=== PATIENT | male | born 1930 | race Caucasian/White ===

== ENCOUNTER 2018-08-08 01:32 | Inpatient (IN) | payer MEDICARE, BC ==
[2018-08-08 02:48] LABS: Troponin I Less than 0.010 ng/mL (< 0.028)
[2018-08-08] MEDS ORDERED: Dextrose 5% in Water 1,000 ML IV PRN (03:18)
[2018-08-08] MEDS ORDERED: Rib Fracture Protocol PO SCH (03:30)
[2018-08-08] MEDS ORDERED: Cyclobenzaprine 10 MG TAB PO PRN (03:45)
[2018-08-08 03:50] LABS: #Eosinphils 0.2 thou/uL (0.0-0.7); #Lymphocytes 1.4 thou/uL (1.20-3.40); #Monocytes 0.6 thou/uL (0.11-0.59); #Neutrophils 6.2 thou/uL (1.40-6.50); %Basophils 0.1 % (0.0-1.0); %Eosinophils 1.8 % (0.0-10.0); %Lymphocytes 17.2 % (21.0-51.0); %Monocytes 7.4 % (0.0-10.0); %Neutrophils 73.5 % (42.0-75.0); Hemoglobin 11.5 g/dL (14.0-18.0); Mean Corpuscular HGB CONC 32.7 g/dL (32.0-36.0); Mean Corpuscular Hemoglobin 30.7 pg (27.0-31.0); Mean Corpuscular Volume 93.8 fL (78.0-98.0); Platelet Count 233 thou/uL (130-400); RBC Distribution Width 12.4 % (11.5-14.5); Red Blood Cell (RBC) Count 3.75 mill/uL (4.70-6.10); White Blood Cell (WBC) Count 8.4 thou/uL (4.8-10.8)
[2018-08-08 04:17] LABS: Anion Gap 13 mmol/L (10-20); BUN (Urea Nitrogen) 11 mg/dL (8.4-25.7); Calc. Creatinine Clearance 0 mL/min (70-130); Carbon Dioxide 30 mmol/L (23-31); Chloride 99 mmol/L (98-107); Estimated GFR-MDRD Greater than 90; Glucose 184 mg/dL (83-110); Potassium 3.7 mmol/L (3.5-5.1); Sodium 138 mmol/L (136-145)
--- NOTE | 2018-08-08 04:50 | HP ---
TRAUMA SURGEON: Dr. Larkin. TRAUMA ACTIVATION: Not applicable. HISTORY OF PRESENT ILLNESS: This is an 87-year-old gentleman who presented as a transfer from [facility] in [place] status post fall, possible syncopal event. The patient is a poor historian. Therefore, history is taken partially from him and partially from records review. Per previous ER documentation, the patient was at a green party. He states that he became dizzy and then fell. There was report of a 2nd fall involving what sounds like a syncopal event. The patient was seen and evaluated in the [place] [facility] and found to have multiple right-sided rib fractures with hypoxemia. He was, therefore, transferred to our facility for further treatment and care. Upon my evaluation, the patient has a chief complaint of right-sided chest discomfort. Pain improved with pain medications and rest, worsened with movement. ALLERGIES: THE PATIENT DENIES. HOME MEDICATIONS: The patient is unable to verify home medication list, medication list provided by outside facility includes; 1. Aspirin 325 p.o. daily. 2. Atorvastatin 10 mg daily. 3. Cymbalta 60 mg. 4. Iron 325 mg. 5. Florinef 0.1 mg. 6. Metformin 500 mg daily. 7. Toprol-XL 25 mg daily. 8. Midodrine dose unknown. 9. Prilosec 20 mg daily. 10. Zoloft 25 mg daily. 11. Flomax 0.4 mg daily. PAST MEDICAL HISTORY: Includes multiple syncopal events and falls of unclear etiology, BPH, diabetes, hypertension, chronic pain, status post spinal cord stimulator, depression, diabetes. PAST SURGICAL HISTORY: Significant for bilateral knee replacement, right hip replacement, spinal decompression, and spinal stimulator placement. SOCIAL HISTORY: The patient reports that he lives with his , typically ambulates independently. Denies alcohol, tobacco, or illicit drug use. FAMILY HISTORY: Noncontributory in this age patient. REVIEW OF SYSTEMS: A 10-point review of systems was performed and negative except as indicated in HPI. PHYSICAL EXAMINATION: VITAL SIGNS: On evaluation include, heart rate 78, blood pressure 136/89, respiratory rate of 18, and O2 saturation 100% on 3 L nasal cannula. GENERAL: Elderly appearing male, in no acute distress, resting in bed. HEENT: Head; normocephalic, atraumatic. Eyes; pupils are PERRL. Extraocular movements are intact. NECK: Supple. Trachea is midline. There was no midline tenderness to palpation. CHEST: Lateral right rib tenderness to palpation. Normal work of breathing. Symmetric rise. LUNGS: Clear to auscultation bilaterally. CARDIOVASCULAR: Regular rate and rhythm. No obvious murmurs, rubs, or gallops. GI: Abdomen is atraumatic, soft, nontender, and nondistended. Bowel sounds are positive. MUSCULOSKELETAL: Moves all extremities x4. BACK: Reported as being within normal limits. EXTREMITIES: Pulses are 2+ bilaterally. NEUROLOGIC: GCS is 15. No focal deficit is noted. LABORATORY FINDINGS: WBC 12.1, hemoglobin 11.8, hematocrit 37.2, platelet count 229. Sodium 140, potassium 3.7, chloride 102, carbon dioxide 28, BUN 10, creatinine 0.81, glucose 172. Troponin less than 0.010. RADIOGRAPHIC FINDINGS: CT of the brain was negative for acute intracranial abnormality. CT of the C-spine was negative for acute fracture or dislocation. CT of the chest, abdomen, and pelvis was significant for right 6th, 7th, 8th, 9th, and 10th rib fractures with possible pulmonary contusion. Incidentally, there was a large volume of retained urine in the patient's bladder. No other acute traumatic findings were noted. Chest x-ray at our facility, official read is pending. EKG, sinus rhythm with first-degree heart block and prolonged QTc. ASSESSMENT: Status post fall from ground level with possible reported syncopal event. PLAN: Due to the possible syncopal event and abnormal EKG, the patient should be further monitored on telemetry unit. Pain control via rib fracture protocol. Syncopal workup to include orthostatic vital signs and echocardiogram. Accu-Cheks a.c. and at bedtime and sliding scale insulin. Encourage incentive spirometry and pulmonary toileting. PT and OT for mobility. Deep vein thrombosis and gastritis prophylaxis when appropriate. Plan for admission was discussed with the patient who vocalized his understanding. All questions were answered prior to this dictation. Trauma attending has been notified of admission. Job ID: [id number]
[2018-08-08] MEDS: Ibuprofen 600 MG TAB PO SCH ×3 (05:25→22:45)
[2018-08-08] MEDS: Acetaminophen 500 MG TAB PO SCH ×3 (05:26→19:36)
[2018-08-08] MEDS: traMADol HCl 50 MG TAB PO SCH ×3 (05:26→19:36)
[2018-08-08] MEDS: Sodium Chloride 0.9% 1,000 ML IV SCH ×2 (05:33→21:09)
[2018-08-08] MEDS ORDERED: Prevnar 13-Val Conj/PF 0.5 ML SYRINGE IM ONE (05:45)
[2018-08-08] MEDS: Cyclobenzaprine 10 MG TAB PO PRN ×2 (06:23→15:48)
[2018-08-08] MEDS ORDERED: Iopamidol-370 76% 500 ML 1 ML ONE (09:00)
--- NOTE | 2018-08-08 09:56 | RAD ---
SINGLE VIEW OF THE CHEST: COMPARISON: None. HISTORY: Pulmonary contusion transfer. FINDINGS: A single view of the chest shows an enlarged cardiomediastinal silhouette. A catheter was seen proje cting over the mid portion of the chest extending down into the abdomen. This could represent a RUBBER TIRE AND TUBES SUPERVISOR s payton but is nonspecific. There is no evidence of consolidation, mass, or pleural effusion. IMPRESSION: Cardiomegaly. POS: [facility]
[2018-08-08] MEDS: Polyethylene Glycol 3350 17 GM Packet PO SCH (10:48)
[2018-08-08] MEDS: Famotidine 20 MG TAB PO SCH ×2 (10:48→21:06)
[2018-08-08] MEDS: Gabapentin 100 MG CAP PO SCH ×3 (10:49→20:55)
[2018-08-08] MEDS: Senokot S 8.6-50 MG TAB PO SCH ×2 (10:49→21:01)
--- NOTE | 2018-08-08 11:07 | ULT ---
CAROTID UTLRASOUND: COMPARISON: None. History Syncope. TECHNIQUE: Multiplanar, winkler scale, and color Doppler images were obtained in a carotid ultrasound. Spectral an alysis of the Doppler waveforms was performed. FINDINGS: No significant plaque is visualized in either common or internal carotid artery. The Doppler wavefor ms are normal bilaterally. Peak systolic velocity in the left ICA is 78 cm/s. Peak systolic velocity in the right CCA is 84 cm/ s. The right ICA/CCA radio is 0.9. Peak systolic velocity in the left ICA is 69 cm/s. Peak systolic velocity in the left CCA is 117 cm/ s. The left ICA/CCA ratio is 0.6. Both vertebral arteries demonstrate antegrade flow without focal stenosis. IMPRESSION: No evidence of hemodynamically significant stenosis. POS: [facility]
[2018-08-08] MEDS: HumaLOG 300 UNITS/3 ML VIAL SC PRN (12:00)
--- NOTE | 2018-08-08 12:07 | PDOC.PN ---
- Subjective Encounter Start Date: 08/08/18 Encounter Start Time: 12:04 Subjective: Pt seen & examined at bedside.chart reviewed.History discussed w pt -: IM team consulted for Medical amangement -: Pt has been having 'dizzy spells" for 2 months,mainly positional reports that he is "dizzy Pills" PCP director of the biophysics facility Is melo Darnell - Objective MAR Reviewed: Yes Vital Signs & Weight: Vital Signs (12 hours) Temp Pulse Resp BP Pulse Ox 08/08/18 08:00 96.8 F L 84 18 158/95 H 93 L 08/08/18 06:46 70 14 08/08/18 04:40 97.6 F 89 16 170/94 H 99 Weight Weight 193 lb 2 oz Result Diagrams: 08/08/18 03:42 08/08/18 03:42 Additional Labs: Accuchecks 08/08/18 08/08/18 11:16 05:17 POC Glucose 201 H 167 H Laboratory Tests 08/08/18 02:05 Troponin I Less than 0.010 Radiology Reviewed by me: Yes (CXr- no acute changes) Phys Exam - Physical Examination Constitutional: NAD HEENT: PERRLA, moist MMs, sclera anicteric, oral pharynx no lesions Neck: no nodes, no JVD, supple, full ROM Respiratory: no wheezing, no rales, no rhonchi, clear to auscultation bilateral Cardiovascular: RRR, no significant murmur, no rub Gastrointestinal: soft, non-tender, no distention, positive bowel sounds Musculoskeletal: no edema, pulses present R sided rib cage pain Neurological: non-focal, normal sensation, moves all 4 limbs Psychiatric: normal affect, A&O x 3 Skin: no rash Dx/Plan (1) Syncope and collapse Code(s): R55 - SYNCOPE AND COLLAPSE Status: Acute (2) Fall Code(s): W19.XXXA - UNSPECIFIED FALL, INITIAL ENCOUNTER Status: Acute (3) DM2 (diabetes mellitus, type 2) Status: Chronic Qualifiers: Diabetes mellitus penitentiary insulin use: without vermin exterminator use (4) Pulmonary contusion Code(s): S27.329A - CONTUSION OF LUNG, UNSPECIFIED, INITIAL ENCOUNTER Status: Acute (5) Prolonged Q-T interval on ECG Code(s): R94.31 - ABNORMAL ELECTROCARDIOGRAM [ECG] [EKG] Status: Acute (6) BPH (benign prostatic hyperplasia) Code(s): N40.0 - BENIGN PROSTATIC HYPERPLASIA WITHOUT LOWER URINRY TRACT SYMP Status: Chronic (7) HTN (hypertension) Code(s): I10 - ESSENTIAL (PRIMARY) HYPERTENSION Status: Chronic - Plan PT/OT, out of bed/ambulate, DVT proph w/SCDs Suspect orthostasis as a cause of near syncope/syncope.Pt also on Midodrine -: and florinef by PCP.will check orthostatics here and adjust meds -: r/o other p[ossible causs.Check D Dimer-CTA if high(low clinical suspicion) -: ECHO,Carotid doppler.No evidence of infection.check UA -: Cardiac enzymes WNL.unlikley neuro or cardiac etiology * .restart home meds. * Pain meds per primary team * Change Toprol to night time to prevent day time dizzines * Other possibilities include automatic neuropathy,peripheral neuropathy and BPPV.on neurontin.Vestibular neuronitis less likley given chronicity of symptoms * Will follow * Review of Systems - Review of Systems Constitutional: negative: fever, chills, sweats, weakness, malaise, other Eyes: negative: Pain, Vision Change, Conjunctivae Inflammation, Eyelid Inflammation, Redness, Other ENT: negative: Ear Pain, Ear Discharge, Nose Pain, Nose Discharge, Nose Congestion, Mouth Pain, Mouth Swelling, Throat Pain, Throat Swelling, Other Respiratory: negative: Cough, Dry, Shortness of Breath, Hemoptysis, SOB with Excertion, Pleuritic Pain, Sputum, Wheezing Cardiovascular: negative: chest pain, palpitations, orthopnea, paroxysmal nocturnal dyspnea, edema, light headedness, other Gastrointestinal: negative: Nausea, Vomiting, Abdominal Pain, Diarrhea, Constipation, Melena, Hematochezia, Other Genitourinary: negative: Dysuria, Frequency, Incontinence, Hematuria, Retention , Other Musculoskeletal: negative: Neck Pain, Shoulder Pain, Arm Pain, Back Pain, Hand Pain, Leg Pain, Foot Pain, Other - Medications/Allergies Allergies/Adverse Reactions: Allergies Allergy/AdvReac Type Severity Reaction Status Date / Time No Known Drug Allergies Allergy Verified 10/12/13 01:51 Medications: Current Medications Acetaminophen (Tylenol) 1,000 mg PO Q6HR [facility] Last Admin: 08/08/18 05:26 Dose: 1,000 mg Albuterol/Ipratropium (Duoneb) 3 ml NEB [id number] [facility] Last Admin: 08/08/18 06:46 Dose: 3 ml Aspirin (Aspirin) 325 mg PO DAILY [facility] Atorvastatin Calcium (Lipitor) 10 mg PO DAILY [facility] Cyclobenzaprine HCl (Flexeril) 5 mg PO TIDPRN PRN PRN Reason: Muscle Spasm Last Admin: 08/08/18 06:23 Dose: 5 mg Dextrose/Water (Dextrose 50%) 25 gm SLOW IVP PRN PRN PRN Reason: Hypoglycemia Duloxetine HCl (Cymbalta) 60 mg PO DAILY [facility] Famotidine (Pepcid) 20 mg PO BID [facility] Last Admin: 08/08/18 10:48 Dose: 20 mg Ferrous Sulfate (Feosol) 325 mg PO DAILY [facility] Fludrocortisone Acetate (Florinef) 0.1 mg PO DAILY [facility] Gabapentin (Neurontin) 100 mg PO TID [facility] Last Admin: 08/08/18 10:49 Dose: 100 mg Glucagon (Glucagon) 1 mg IM PRN PRN PRN Reason: Hypoglycemia Dextrose/Water (D5w) 1,000 mls @ 0 mls/hr IV .Q0M PRN PRN Reason: Hypoglycemia Sodium Chloride (Normal Saline 0.9%) 1,000 mls @ 80 mls/hr IV .[id number] [facility] Last Admin: 08/08/18 05:33 Dose: 1,000 mls Ibuprofen (Motrin) 600 mg PO Q8HR [facility] Last Admin: 08/08/18 05:25 Dose: 600 mg Insulin Human Lispro (Humalog) 0 units SC .MILD SLIDING SCALE PRN PRN Reason: Mild Correctional Scale Last Admin: 08/08/18 12:00 Dose: 3 unit Metoprolol Succinate (Toprol Xl) 25 mg PO DAILY [facility] Midodrine (Proamatine) 10 mg PO TID [facility] Miscellaneous Medication (Rib Fracture Protocol) 1 each PO ONE [facility] Stop: 08/09/18 03:31 Pantoprazole Sodium (Protonix) 40 mg PO DAILY [facility] Polyethylene Glycol (Miralax) 17 gm PO DAILY [facility] Last Admin: 08/08/18 10:48 Dose: 17 gm Senna/Docusate Sodium (Senokot S) 2 tab PO BID [facility] Last Admin: 08/08/18 10:49 Dose: 2 tab Sertraline HCl (Zoloft) 50 mg PO DAILY [facility] Sodium Chloride (Flush - Normal Saline) 10 ml IVF PRN PRN PRN Reason: Saline Flush Tamsulosin HCl (Flomax) 0.4 mg PO DAILY [facility] Tramadol HCl (Ultram) 100 mg PO Q6HR [facility] Last Admin: 08/08/18 05:26 Dose: 100 mg
[2018-08-08 12:48] LABS: Bilirubin Negative (Negative); Blood, Urine Large (Negative); Clarity CLOUDY (Clear); Glucose, Urine (Dipstick) 250 mg/dL (Negative); Leukocyte Moderate (Negative); Nitrite Negative (Negative); Protein, Urine (Dipstick) 30 mg/dL (Neg-Trace); Specific Gravity, Urine 1.022 (1.002-1.036); pH, Urine 6.5 (5.0-9.0)
[2018-08-08 12:51] LABS: Bacteria/HPF 2+ HPF (None Seen); Hyaline Casts/LPF 4-6 HYALINE CAST LPF (0-3 Hyaline); Pathc Cast-AUWi Flag 0.87 (0-2.49); RBC/HPF GREATER THAN 50-TNTC HPF (0-3); Squamous Epithelial 0-3 HPF (0-3)
--- NOTE | 2018-08-08 12:58 | PRG ---
DATE OF SERVICE: 08/08/2018 SUBJECTIVE: Please see Pamella Velásquez's full H and P for details. Mr. Rojas is fairly comfortable this afternoon. He is breathing without significant difficulty. He does have right back and flank pain. He has been hemodynamically stable. OBJECTIVE: VITAL SIGNS: Blood pressure is 152/78, pulse 79. He is afebrile. His O2 sats 93% on 2 L. CHEST: Coarse breath sounds mostly on the right, but present. HEART: Regular rate now. ABDOMEN: Soft and nontender. No ischemia due to deformity. LABORATORY DATA: Glucose 167 to 201. ASSESSMENT: Right pulmonary contusion with rib fractures. PLAN: Continue pain control. Appreciate medicine assistance. Does need to be doing his incentive spirometer regularly. Job ID: [id number]
--- NOTE | 2018-08-08 14:37 | CT ---
CTA THORAX WITH CONTRAST: (Computed Tomographic Angiography, chest(noncoronary) with contrast material, and image post processi ng) (PE protocol) DATE: 08/08/2018. HISTORY: An 87-year-old male with elevated D-dimer and status post syncope. TECHNIQUE: IV injection of iodinated contrast: 100 mL of Isovue 370. Scan acquisition timing attempted to coincide with iodinated contrast bolus reaching maximal density in pulmonary arteries. 3D MIP reconstructions. FINDINGS: There is no evidence of pulmonary thromboembolism. There are consolidations at the bases of the bila teral lower lobes with air bronchograms, right greater than left. These are favored to represent ate lectasis, and slightly less likely to represent pneumonia. No thoracic aortic aneurysm or dissection . Ectasia and tortuosity of thoracic aorta. No pleural effusion or pneumothorax. Decreased AP diam eter of the trachea. Colonic interposition inferior to right hemidiaphragm. Pneumobilia. There are laminectomy defects at a few levels in the upper thoracic spine. IMPRESSION: 1. No pulmonary thromboembolism. 2. Consolidations at bilateral lower lobes, right greater than left. These are favored to represent atelectasis rather than pneumonia, but clinical correlation is recommended. 3. Status post laminectomy at several levels in the upper thoracic spine. 4. Pneumobilia, presumably due to surgical manipulation of the common bile duct or papillotomy. 5. Mild tracheomalacia. analy[] POS: [facility]
[2018-08-08] MEDS ORDERED: Non-Formulary Item 1 EACH (Midodrine Hcl [Midodrine Hcl] 10 MG) PO SCH (15:00)
[2018-08-08] MEDS: Midodrine HCl 5 MG TAB PO SCH ×2 (16:20→20:54)
[2018-08-09] MEDS: Acetaminophen 500 MG TAB PO SCH ×4 (00:30→18:12)
[2018-08-09] MEDS: traMADol HCl 50 MG TAB PO SCH ×4 (00:30→18:10)
[2018-08-09 05:27] LABS: #Eosinphils 0.4 thou/uL (0.0-0.7); #Lymphocytes 1.8 thou/uL (1.20-3.40); #Monocytes 0.6 thou/uL (0.11-0.59); #Neutrophils 4.6 thou/uL (1.40-6.50); %Basophils 0.4 % (0.0-1.0); %Eosinophils 5.6 % (0.0-10.0); %Lymphocytes 24.6 % (21.0-51.0); %Monocytes 8.1 % (0.0-10.0); %Neutrophils 61.2 % (42.0-75.0); Hemoglobin 11.3 g/dL (14.0-18.0); Mean Corpuscular HGB CONC 32.2 g/dL (32.0-36.0); Mean Corpuscular Hemoglobin 30.7 pg (27.0-31.0); Mean Corpuscular Volume 95.2 fL (78.0-98.0); Mean Platelet Volume 7.7 fL (7.4-10.4); Platelet Count 200 thou/uL (130-400); RBC Distribution Width 12.5 % (11.5-14.5); Red Blood Cell (RBC) Count 3.69 mill/uL (4.70-6.10); White Blood Cell (WBC) Count 7.5 thou/uL (4.8-10.8)
[2018-08-09 05:49] LABS: Anion Gap 11 mmol/L (10-20); BUN (Urea Nitrogen) 17 mg/dL (8.4-25.7); Calc. Creatinine Clearance 90 mL/min (70-130); Calcium 8.5 mg/dL (7.8-10.44); Carbon Dioxide 26 mmol/L (23-31); Chloride 104 mmol/L (98-107); Estimated GFR-MDRD Greater than 90; Glucose 129 mg/dL (83-110); Magnesium 2.1 mg/dL (1.6-2.6); Phosphorus 3.5 mg/dL (2.3-4.7); Potassium 4.1 mmol/L (3.5-5.1); Sodium 137 mmol/L (136-145)
[2018-08-09] MEDS: Ibuprofen 600 MG TAB PO SCH ×3 (06:09→21:02)
--- NOTE | 2018-08-09 08:08 | RAD ---
CHEST 1 VIEW: Date: 08/09/18 HISTORY: 87-year-old male with history of follow-up pulmonary contusion, syncope. COMPARISON: 08/08/18. FINDINGS: Monitor leads overlie the chest. Right-sided paramidline vertically oriented catheter. Minimal increa sed markings in the infrahilar regions with poor inspiratory effort and blunting of the costophrenic angles, greater on the right side, evidence for small pleural effusions. No confluent pneumonia, over t edema, or other significant acute process. IMPRESSION: Overall stable poor inspiratory effort with small bilateral pleural effusions and some patchy parench ymal changes, particularly in the infrahilar regions, probably some subsegmental atelectasis. Stable from prior study. POS: [facility]
[2018-08-09] MEDS ORDERED: Sodium Chloride 0.9% 1,000 ML IV SCH (08:39)
[2018-08-09] MEDS ORDERED: Non-Formulary Item 1 EACH (Omeprazole [Omeprazole] 20 MG) PO SCH (09:00)
[2018-08-09] MEDS ORDERED: Non-Formulary Item 1 EACH (Ferrous Sulfate [Ferrous Sulfate] 325 MG) PO SCH (09:00)
[2018-08-09] MEDS ORDERED: Fludrocortisone Acetate 0.1 MG TAB PO SCH (09:00)
[2018-08-09] MEDS ORDERED: Non-Formulary Item 1 EACH (Sertraline Hcl [Zoloft] 50 MG) PO SCH (09:00)
[2018-08-09] MEDS: cefTRIAXone\\ROCEPHIN 1 GM in Sodium Chloride 0.9% 100 ML IVPB SCH (09:11)
[2018-08-09] MEDS: Midodrine HCl 5 MG TAB PO SCH (09:14)
[2018-08-09] MEDS: DULoxetine 60 MG CAP PO SCH (09:14)
[2018-08-09] MEDS: Aspirin 325 MG TAB PO SCH (09:14)
[2018-08-09] MEDS: Polyethylene Glycol 3350 17 GM Packet PO SCH (09:14)
[2018-08-09] MEDS: Gabapentin 100 MG CAP PO SCH ×3 (09:14→21:02)
[2018-08-09] MEDS: Famotidine 20 MG TAB PO SCH ×2 (09:15→21:02)
[2018-08-09] MEDS: Senokot S 8.6-50 MG TAB PO SCH ×2 (09:15→21:02)
[2018-08-09] MEDS: Atorvastatin Calcium 10 MG TAB PO SCH (09:16)
[2018-08-09] MEDS: Ferrous Sulfate 325 MG TAB PO SCH (09:16)
[2018-08-09] MEDS: Tamsulosin HCl 0.4 MG CAP PO SCH (09:16)
[2018-08-09] MEDS: Cyclobenzaprine 10 MG TAB PO PRN (09:27)
--- NOTE | 2018-08-09 10:31 | PRG ---
DATE OF SERVICE: 08/09/2018 SUBJECTIVE: Mr. Rojas is complaining of right back pain, especially on inspiration, especially when he tries to get out of bed. He has just taken tramadol for pain. OBJECTIVE: VITAL SIGNS: Blood pressure is 180/102, pulse is 68, respirations are 14, O2 saturation 93% on 2 L. Urine output is 350 overnight. LABORATORY DATA: Chest x-ray revealed no real change. ASSESSMENT: Multiple rib fractures, pulmonary contusion. PLAN: Transfer to surgical floor. Add hydrocodone for pain. Start to mobilize. Have field case manager look at potential rehab after he leaves. Job ID: [id number]
[2018-08-09] MEDS: HYDROcodone/Acetaminophen 5/325 mg Tablet PO PRN ×2 (10:56→16:57)
[2018-08-09] MEDS ORDERED: hydrALAZINE 20 MG/ML VIAL SLOW IVP PRN (12:29)
[2018-08-09] MEDS: HumaLOG 300 UNITS/3 ML VIAL SC PRN (12:54)
[2018-08-09] MEDS: cloNIDine 0.1 MG TAB PO PRN (15:30)
--- NOTE | 2018-08-09 16:18 | PDOC.PN ---
- Subjective Encounter Start Date: 08/09/18 Encounter Start Time: 16:17 Subjective: no new complaints.feels well except rib cage pain -: care discussed w daughter at bedside -: RN reported high BP readings all day - Objective MAR Reviewed: Yes Vital Signs & Weight: Vital Signs (12 hours) Temp Pulse Resp BP BP Pulse Ox 08/09/18 15:30 174/106 H 08/09/18 15:25 97.3 F L 80 16 174/106 H 93 L 08/09/18 12:40 78 08/09/18 12:34 78 16 08/09/18 11:30 69 16 208/118 H 93 L 08/09/18 09:12 99.2 F 08/09/18 07:20 68 14 180/102 H 93 L 08/09/18 07:10 92 L 08/09/18 07:08 78 16 92 L Weight Weight 192 lb 6 oz I&O: 08/08/18 08/09/18 08/10/18 06:59 06:59 06:59 Intake Total 2721 Output Total 1200 Balance 1521 Result Diagrams: 08/09/18 04:36 08/09/18 04:37 Additional Labs: Accuchecks 08/09/18 08/09/18 08/08/18 11:09 05:24 20:25 POC Glucose 156 H 136 H 196 H 08/08/18 16:45 POC Glucose 110 Phys Exam - Physical Examination Constitutional: NAD HEENT: PERRLA, moist MMs, sclera anicteric, oral pharynx no lesions Neck: no nodes, no JVD, supple, full ROM Respiratory: no wheezing, no rales, no rhonchi Cardiovascular: RRR, no significant murmur, no rub Gastrointestinal: soft, non-tender, no distention, positive bowel sounds Musculoskeletal: no edema, pulses present Neurological: non-focal, normal sensation, moves all 4 limbs Psychiatric: normal affect, A&O x 3 Skin: no rash Dx/Plan (1) Syncope and collapse Code(s): R55 - SYNCOPE AND COLLAPSE Status: Acute Comment: Orthostatic hypotension (2) Fall Code(s): W19.XXXA - UNSPECIFIED FALL, INITIAL ENCOUNTER Status: Acute (3) DM2 (diabetes mellitus, type 2) Status: Chronic Qualifiers: Diabetes mellitus correction insulin use: without terminal computer operator use (4) Pulmonary contusion Code(s): S27.329A - CONTUSION OF LUNG, UNSPECIFIED, INITIAL ENCOUNTER Status: Acute (5) Prolonged Q-T interval on ECG Code(s): R94.31 - ABNORMAL ELECTROCARDIOGRAM [ECG] [EKG] Status: Acute (6) BPH (benign prostatic hyperplasia) Code(s): N40.0 - BENIGN PROSTATIC HYPERPLASIA WITHOUT LOWER URINRY TRACT SYMP Status: Chronic (7) HTN (hypertension) Code(s): I10 - ESSENTIAL (PRIMARY) HYPERTENSION Status: Chronic (8) UTI (urinary tract infection) Status: Acute - Plan plan discussed w/ family, PT/OT, out of bed/ambulate, DVT proph w/SCDs Uncontrolled HTN.DC Midodrine.Florinef.DC IVF -: add prn antihypertensives -: Toprol changed to hs to prevent orthostatic hypotension. add compression st -: Add rocephin for bacteruria w h/o BPH.urine Cx -: Keep in Tele given uncontrolled HTN.IM team will follow * . Review of Systems - Review of Systems Constitutional: weakness. negative: fever, chills, sweats, malaise, other ENT: negative: Ear Pain, Ear Discharge, Nose Pain, Nose Discharge, Nose Congestion, Mouth Pain, Mouth Swelling, Throat Pain, Throat Swelling, Other Respiratory: negative: Cough, Dry, Shortness of Breath, Hemoptysis, SOB with Excertion, Pleuritic Pain, Sputum, Wheezing Cardiovascular: negative: chest pain, palpitations, orthopnea, paroxysmal nocturnal dyspnea, edema, light headedness, other Gastrointestinal: negative: Nausea, Vomiting, Abdominal Pain, Diarrhea, Constipation, Melena, Hematochezia, Other Genitourinary: negative: Dysuria, Frequency, Incontinence, Hematuria, Retention , Other Musculoskeletal: Other. negative: Neck Pain, Shoulder Pain, Arm Pain, Back Pain , Hand Pain, Leg Pain, Foot Pain Neurological: negative: Weakness, Numbness, Incoordination, Change in Speech, Confusion, Seizures, Other - Medications/Allergies Allergies/Adverse Reactions: Allergies Allergy/AdvReac Type Severity Reaction Status Date / Time No Known Drug Allergies Allergy Verified 10/12/13 01:51 Medications: Current Medications Acetaminophen (Tylenol) 650 mg PO Q6HR [facility] Last Admin: 08/10/18 11:35 Dose: 650 mg Hydrocodone Bitart/Acetaminophen ([place] 5/325) 1 tab PO Q4H PRN PRN Reason: Severe Pain (7-10) Last Admin: 08/09/18 16:57 Dose: 1 tab Albuterol/Ipratropium (Duoneb) 3 ml NEB [id number] [facility] Last Admin: 08/10/18 07:04 Dose: 3 ml Aspirin (Aspirin) 325 mg PO DAILY [facility] Last Admin: 08/10/18 08:04 Dose: 325 mg Atorvastatin Calcium (Lipitor) 10 mg PO DAILY [facility] Last Admin: 08/10/18 08:04 Dose: 10 mg Clonidine (Catapres) 0.1 mg PO Q4H PRN PRN Reason: SBP >160 Last Admin: 08/09/18 15:30 Dose: 0.1 mg Cyclobenzaprine HCl (Flexeril) 5 mg PO TIDPRN PRN PRN Reason: Muscle Spasm Last Admin: 08/09/18 09:27 Dose: 5 mg Dextrose/Water (Dextrose 50%) 25 gm SLOW IVP PRN PRN PRN Reason: Hypoglycemia Duloxetine HCl (Cymbalta) 60 mg PO DAILY [facility] Last Admin: 08/10/18 08:05 Dose: 60 mg Famotidine (Pepcid) 20 mg PO BID [facility] Last Admin: 08/10/18 08:05 Dose: 20 mg Ferrous Sulfate (Feosol) 325 mg PO DAILY [facility] Last Admin: 08/10/18 08:05 Dose: 325 mg Gabapentin (Neurontin) 100 mg PO TID [facility] Last Admin: 08/10/18 08:05 Dose: 100 mg Glucagon (Glucagon) 1 mg IM PRN PRN PRN Reason: Hypoglycemia Hydralazine HCl (Apresoline) 10 mg SLOW IVP Q4H PRN PRN Reason: SBP >170 Last Admin: 08/09/18 12:40 Dose: 10 mg Dextrose/Water (D5w) 1,000 mls @ 0 mls/hr IV .Q0M PRN PRN Reason: Hypoglycemia Ceftriaxone Sodium 1 gm/ (Sodium Chloride) 100 mls @ 200 mls/hr IVPB Q24HR [facility] Last Admin: 08/10/18 08:04 Dose: 100 mls Ibuprofen (Motrin) 600 mg PO Q8HR [facility] Last Admin: 08/10/18 06:11 Dose: 600 mg Insulin Human Lispro (Humalog) 0 units SC .MILD SLIDING SCALE PRN PRN Reason: Mild Correctional Scale Last Admin: 08/09/18 12:54 Dose: 2 unit Metoprolol Succinate (Toprol Xl) 25 mg PO HS [facility] Last Admin: 08/09/18 21:02 Dose: 25 mg Polyethylene Glycol (Miralax) 17 gm PO DAILY [facility] Last Admin: 08/10/18 08:05 Dose: 17 gm Senna/Docusate Sodium (Senokot S) 2 tab PO BID [facility] Last Admin: 08/10/18 08:05 Dose: 2 tab Sertraline HCl (Zoloft) 50 mg PO DAILY [facility] Last Admin: 08/10/18 08:05 Dose: 50 mg Sodium Chloride (Flush - Normal Saline) 10 ml IVF PRN PRN PRN Reason: Saline Flush Tamsulosin HCl (Flomax) 0.4 mg PO DAILY [facility] Last Admin: 08/10/18 08:06 Dose: 0.4 mg Tramadol HCl (Ultram) 100 mg PO Q6HR [facility] Last Admin: 08/10/18 11:35 Dose: 100 mg
[2018-08-10] MEDS: traMADol HCl 50 MG TAB PO SCH ×6 (01:09→23:24)
[2018-08-10] MEDS: Acetaminophen 500 MG TAB PO SCH ×3 (01:09→06:11)
[2018-08-10] MEDS: Sodium Chloride 0.9% 1,000 ML IV SCH (01:10)
[2018-08-10] MEDS: Ibuprofen 600 MG TAB PO SCH ×3 (06:11→21:02)
[2018-08-10] MEDS: Aspirin 325 MG TAB PO SCH (08:04)
[2018-08-10] MEDS: cefTRIAXone\\ROCEPHIN 1 GM in Sodium Chloride 0.9% 100 ML IVPB SCH (08:04)
[2018-08-10] MEDS: Atorvastatin Calcium 10 MG TAB PO SCH (08:04)
[2018-08-10] MEDS: DULoxetine 60 MG CAP PO SCH (08:05)
[2018-08-10] MEDS: Gabapentin 100 MG CAP PO SCH ×3 (08:05→20:58)
[2018-08-10] MEDS: Famotidine 20 MG TAB PO SCH ×2 (08:05→20:58)
[2018-08-10] MEDS: Senokot S 8.6-50 MG TAB PO SCH ×2 (08:05→20:58)
[2018-08-10] MEDS: Polyethylene Glycol 3350 17 GM Packet PO SCH (08:05)
[2018-08-10] MEDS: Ferrous Sulfate 325 MG TAB PO SCH (08:05)
[2018-08-10] MEDS: Tamsulosin HCl 0.4 MG CAP PO SCH (08:06)
--- NOTE | 2018-08-10 10:52 | PDOC.PN ---
- Subjective Encounter Start Date: 08/10/18 Encounter Start Time: 10:51 Mr. Rojas was seen today in follow-up of medical management in multiple trauma. He feeling better. His dughter is at the bedside, and says he walked some without difficulty. He has tolerable pain in his rib cage. - Objective MAR Reviewed: Yes Vital Signs & Weight: Vital Signs (12 hours) Temp Pulse Resp BP Pulse Ox 08/10/18 08:03 97.3 F L 69 18 150/81 H 94 L 08/10/18 07:07 90 L 08/10/18 07:04 68 20 90 L 08/10/18 04:00 97.1 F L 78 20 153/88 H 93 L 08/10/18 00:10 71 18 Weight Weight 191 lb 12.8 oz I&O: 08/09/18 08/10/18 08/11/18 06:59 06:59 06:59 Intake Total 2721 500 Output Total 1200 1050 Balance 1521 -550 Result Diagrams: 08/09/18 04:36 08/09/18 04:37 Additional Labs: Accuchecks 08/10/18 08/09/18 08/09/18 05:28 20:29 16:43 POC Glucose 174 H 179 H 112 H 08/09/18 11:09 POC Glucose 156 H Phys Exam - Physical Examination Constitutional: NAD HEENT: PERRLA, sclera anicteric Respiratory: no wheezing, no rales + rhonchi bilaterally, decreased breath sounds at the bases Cardiovascular: RRR, no significant murmur, no rub, irregular Gastrointestinal: soft, non-tender, no distention, positive bowel sounds Musculoskeletal: no edema, pulses present Neurological: non-focal, moves all 4 limbs Dx/Plan (1) HTN (hypertension) Code(s): I10 - ESSENTIAL (PRIMARY) HYPERTENSION Status: Chronic (2) DM2 (diabetes mellitus, type 2) Status: Chronic Qualifiers: Diabetes mellitus ferry terminal supervisor insulin use: without ferry terminal supervisor use (3) Fall Code(s): W19.XXXA - UNSPECIFIED FALL, INITIAL ENCOUNTER Status: Acute (4) Prolonged Q-T interval on ECG Code(s): R94.31 - ABNORMAL ELECTROCARDIOGRAM [ECG] [EKG] Status: Acute - Plan * HTN- blood pressure is better this morning- continue Metoprolol and Clonidine as needed * DM- blood glucose is stable * Fall with multiple rib fractures and lung contusion- continue to encourage incentive spirometry, . * He is stable for transfer to the Surgical Floor * Await Rehab transfer
--- NOTE | 2018-08-10 11:07 | RAD ---
CHEST ONE VIEW: HISTORY: Chest pain. Followup. COMPARISON: Radiograph from the prior day. FINDINGS: The lungs are hypoinflated. A catheter projects over the right hemithorax. Aortic contour is mildly tortuous. Layering right effusion. No pneumothorax. IMPRESSION: Similar examination of the chest. POS: [facility]
[2018-08-10] MEDS: Acetaminophen 325 MG TAB PO SCH ×3 (11:35→23:24)
--- NOTE | 2018-08-10 14:48 | PRG ---
DATE OF SERVICE: 08/10/2018 SUBJECTIVE: The patient remains on the Telemetry floor. He was due for transfer to surgical floor yesterday, but had some hypertension issues that the Medicine Team following him, and felt it was best to keep him on telemetry for one more night. He has had no events overnight. His cardiac rhythm remains normal sinus. He has been working with Physical Therapy and progressing. He states his pain is better controlled today. He is tolerating a diet. PHYSICAL EXAMINATION: VITAL SIGNS: Temperature is 97.3, heart rate 69, blood pressure 150/81, respirations 18, and oxygen saturation is 94% on 3 L via nasal cannula. GENERAL: The patient is resting comfortably in bed. He is awake, alert, conversant, and appropriate. His daughter is at bedside and notes that he is at his baseline in mentation. HEENT: Unremarkable. LUNGS: Clear to auscultation with good inspiratory and expiratory effort. The patient has marked tenderness to his right lateral chest wall consistent with his fractures. approximately 1250 on his incentive spirometry. HEART: Regular rate and rhythm. ABDOMEN: Soft, flat, and nontender with active bowel sounds. EXTREMITIES: Neurovascularly intact x4. LABORATORY DATA: There are no labs to review this morning. DIAGNOSTIC DATA: Chest x-ray shows a possible layering right effusion. ASSESSMENT: 1. Status post fall. 2. Multiple right rib fractures. 3. Pulmonary contusion. 4. Possible developing effusion, likely hemothorax in light of his multiple rib fractures. PLAN: Plan will be to continue supportive care. Repeat chest x-ray in the morning. Continue pain management, pulmonary toilet, gastritis, mechanical, and VTE prophylaxis. We will start the patient's VTE prophylaxis today also, chemical VTE prophylaxis specifically. Evaluation, examination, laboratory, and radiographic findings were discussed with Dr. Larkin during rounds this morning. Job ID: [id number]
[2018-08-10] MEDS: HumaLOG 300 UNITS/3 ML VIAL SC PRN (18:06)
[2018-08-11] MEDS: Acetaminophen 325 MG TAB PO SCH ×4 (05:23→23:41)
[2018-08-11] MEDS: Ibuprofen 600 MG TAB PO SCH ×3 (05:23→21:00)
[2018-08-11] MEDS: traMADol HCl 50 MG TAB PO SCH (05:23)
[2018-08-11 05:48] LABS: #Eosinphils 0.2 thou/uL (0.0-0.7); #Lymphocytes 1.1 thou/uL (1.20-3.40); #Monocytes 0.6 thou/uL (0.11-0.59); #Neutrophils 6.1 thou/uL (1.40-6.50); %Basophils 0.2 % (0.0-1.0); %Eosinophils 2.8 % (0.0-10.0); %Lymphocytes 13.8 % (21.0-51.0); %Monocytes 7.1 % (0.0-10.0); %Neutrophils 76.2 % (42.0-75.0); Hemoglobin 11.6 g/dL (14.0-18.0); Mean Corpuscular HGB CONC 32.2 g/dL (32.0-36.0); Mean Corpuscular Hemoglobin 30.5 pg (27.0-31.0); Mean Corpuscular Volume 94.7 fL (78.0-98.0); Mean Platelet Volume 7.5 fL (7.4-10.4); Platelet Count 207 thou/uL (130-400); RBC Distribution Width 12.3 % (11.5-14.5)
[2018-08-11 05:58] LABS: Anion Gap 13 mmol/L (10-20); BUN (Urea Nitrogen) 11 mg/dL (8.4-25.7); Calc. Creatinine Clearance 107 mL/min (70-130); Carbon Dioxide 28 mmol/L (23-31); Chloride 98 mmol/L (98-107); Estimated GFR-MDRD Greater than 90; Glucose 146 mg/dL (83-110); Magnesium 1.6 mg/dL (1.6-2.6); Phosphorus 2.6 mg/dL (2.3-4.7); Potassium 3.7 mmol/L (3.5-5.1); Sodium 135 mmol/L (136-145)
--- NOTE | 2018-08-11 08:06 | RAD ---
CHEST ONE VIEW PORTABLE: History: 87-year-old male with history of follow right rib fractures. Comparison: 08-10-18 FINDINGS: There is some patchy pleural and parenchymal opacity changes in the right mid and lower lung zone, st able. Right side ventriculoperitoneal shunt tube. There are healed left rib fractures. No pneumothora x. IMPRESSION: Persistent overall stable pleural and parenchymal opacity changes in the right mid and lower lung zon e. No significant pneumothorax. POS: [facility]
[2018-08-11] MEDS ORDERED: Bisacodyl 5 MG TAB PO SCH (08:30)
[2018-08-11] MEDS: HYDROcodone/Acetaminophen 5/325 mg Tablet PO PRN (10:53)
[2018-08-11] MEDS ORDERED: traMADol HCl 50 MG TAB PO PRN (11:00)
[2018-08-11] MEDS: Atorvastatin Calcium 10 MG TAB PO SCH (12:07)
[2018-08-11] MEDS: Tamsulosin HCl 0.4 MG CAP PO SCH (12:07)
[2018-08-11] MEDS: Senokot S 8.6-50 MG TAB PO SCH ×2 (12:07→20:07)
[2018-08-11] MEDS: Aspirin 325 MG TAB PO SCH (12:07)
[2018-08-11] MEDS: DULoxetine 60 MG CAP PO SCH (12:08)
[2018-08-11] MEDS: Gabapentin 100 MG CAP PO SCH ×3 (12:08→20:07)
[2018-08-11] MEDS: Polyethylene Glycol 3350 17 GM Packet PO SCH (12:08)
[2018-08-11] MEDS: Famotidine 20 MG TAB PO SCH ×2 (12:08→20:07)
[2018-08-11] MEDS: Ferrous Sulfate 325 MG TAB PO SCH (12:08)
--- NOTE | 2018-08-11 12:24 | PRG ---
DATE OF SERVICE: 08/11/2018 SUBJECTIVE: Mr. Rojas is hospital day #3, status post fall with right rib fractures and pulmonary contusion versus hemothorax. He was transferred from [facility] yesterday to the surgery medel and had a fairly rough night, reportedly not sleeping and was acutely agitated, actually called to the bedside 7 o'clock this morning for agitation. Mr. Rojas wanted to leave and was threatening staff. He is still alert and oriented to person, place, time, and event. He is redirectable, but he states that he was manhandled and was unsure of an x-ray this morning, which got him upset. There is no family at the bedside. He is still requiring coupe of liters of oxygen at times. He states that at this time, he has no pain. He is noted to be hypertensive, and chest x-ray ultimately no change or slightly worsening right- sided opacities with no pneumothorax is appreciated. He remains afebrile. OBJECTIVE: VITAL SIGNS: Temperature 98.3, blood pressure 183/84, heart rate is 84, respiratory rate is 20, he is saturating 98% on 3 L nasal cannula. GENERAL: He is an 87-year-old male, who is agitated and actually aggressive at time saying that he could put me in the hospital if he wanted to. HEENT: Normocephalic, atraumatic. NECK: Trachea is midline. No JVD is appreciated. RESPIRATORY: Equal rise and fall. Bilateral breath sounds. Clear to auscultation upper and lower bilaterally. Slight tenderness to palpation in the right ribs. CARDIOVASCULAR: Regular rate and rhythm. No murmurs noted. ABDOMEN: Soft and nontender. MUSCULOSKELETAL: He moves all extremities. NEUROLOGIC: Alert and oriented to person, place, time, and event. PSYCHIATRIC: Impulsive and aggressive at times. LABORATORY DATA: From today, hemoglobin and hematocrit of 11.6 and 36.0, white blood cell count 8.0, platelet count is 207. Chemistry; sodium 135, potassium 3.7, chloride 98, CO2 is 28, creatinine 0.62, BUN 11, glucose 146, magnesium 1.6, phosphorus 2.6, calcium is 9.0. DIAGNOSTIC DATA: Chest x-ray today demonstrates right-sided pulmonary contusion , right rib fractures, and possible right pleural effusion, concerned for hemothorax. ASSESSMENT: 1. Status post fall with multiple right rib fractures. 2. Right pulmonary contusion versus hemothorax. 3. Urinary tract infection. 4. Acute agitation versus hospital delirium. PLAN: 1. The patient has been redirected. We have not had to sedate him any further. Obtain a CT chest for evaluation of hemothorax. 2. Continue ceftriaxone. 3. Continue pain control as needed. We will try to limit narcotics and have tramadol only p.r.n. Continue scheduled Tylenol. 4. We will discuss with family when he arrives. 5. I have updated Mr. Rojas at the bedside. I have coordinated care with the social media marketing specialist and the nurses multiple at the bedside. 6. Continue IS. 7. Oxygen as needed to maintain SpO2 equal to or greater than 92. We would like to wean this if possible. 8. Continue all other supportive care. 9. The patient will be seen by Dr. Tee Larkin. I have updated family on arrival, answered all questions. Further, I have suspended the norco as this could lead to his delirium. Family states this is not like patient. Has not occured with previous hospitalizations. More calm with family, encouraging rest. May need melatonin tonight to facilitate rest, this should help. Job ID: [id number] MTDD
[2018-08-11] MEDS: cefTRIAXone\\ROCEPHIN 1 GM in Sodium Chloride 0.9% 100 ML IVPB SCH (13:26)
[2018-08-11] MEDS ORDERED: Cephalexin 250 MG CAP PO SCH (15:00)
--- NOTE | 2018-08-11 16:05 | PDOC.PN ---
- Subjective Encounter Start Date: 08/11/18 Encounter Start Time: 14:00 Mr. Rojas was seen today in follow-up of medical management following a fall. He has been a bit agitated today. When I saw him he had calmed down, and had no complaints, was lying comfortably in bed. - Objective MAR Reviewed: Yes Vital Signs & Weight: Vital Signs (12 hours) Temp Pulse Pulse Pulse Pulse Resp BP 08/11/18 14:11 87 18 08/11/18 11:47 98 F 91 24 H 08/11/18 11:15 103 H 84 100 145/79 H 08/11/18 08:10 08/11/18 07:28 98.3 F 83 20 08/11/18 07:26 90 20 08/11/18 04:14 97.6 F 94 16 BP BP BP Pulse Ox Pulse Ox Pulse Ox Pulse Ox 08/11/18 14:11 93 L 08/11/18 11:47 151/95 H 93 L 08/11/18 11:15 183/84 H 92 L 86 L 96 08/11/18 08:10 98 08/11/18 07:28 183/84 H 98 08/11/18 07:26 92 L 08/11/18 04:14 169/64 H 92 L Weight Weight 191 lb 12.8 oz I&O: 08/10/18 08/11/18 08/12/18 06:59 06:59 06:59 Intake Total 500 400 Output Total 1050 1435 Balance -550 -1035 Result Diagrams: 08/11/18 05:00 08/11/18 05:00 Additional Labs: Accuchecks 08/11/18 08/11/18 08/10/18 11:49 05:51 21:29 POC Glucose 141 H 153 H 128 H 08/10/18 17:47 POC Glucose 184 H Phys Exam - Physical Examination HEENT: PERRLA Respiratory: no wheezing, no rales decreased breath sounds at the bases Cardiovascular: RRR, no significant murmur, no rub Gastrointestinal: soft, non-tender, no distention, positive bowel sounds Musculoskeletal: pulses present, edema present trace pedal edema Dx/Plan (1) HTN (hypertension) Code(s): I10 - ESSENTIAL (PRIMARY) HYPERTENSION Status: Chronic (2) DM2 (diabetes mellitus, type 2) Status: Chronic Qualifiers: Diabetes mellitus mcc insulin use: without mcc use (3) Fall Code(s): W19.XXXA - UNSPECIFIED FALL, INITIAL ENCOUNTER Status: Acute (4) Prolonged Q-T interval on ECG Code(s): R94.31 - ABNORMAL ELECTROCARDIOGRAM [ECG] [EKG] Status: Acute (5) Ribs, multiple fractures Code(s): S22.49XA - MULTIPLE FRACTURES OF RIBS, UNSP SIDE, INIT FOR CLOS FX Status: Acute (6) Pulmonary contusion Code(s): S27.329A - CONTUSION OF LUNG, UNSPECIFIED, INITIAL ENCOUNTER Status: Acute - Plan * HTN- his blood pressure has been consistently elevated- will add Amlodipine * DM- blood glucose is stable * Right Pleural effusion/ possible Hemothorax- noted on today's chest X-ray- CT scan of the chest has been ordered. * Multiple Rib fractures and Pulmonary Contusion- as per the Trauma team
--- NOTE | 2018-08-11 18:17 | CT ---
CT CHEST WITHOUT CONTRAST: 08/11/18 PROVIDED CLINICAL HISTORY: Right sided chest pain, status post injury. FINDINGS: Comparison is made with the study dated 08/08/18. The heart, pericardium, and great vessels are suboptimally evaluated in the absence of IV contrast bu t demonstrate an unremarkable, unenhanced CT appearance with the exception of vascular calcification including coronary calcium. There is persistent parenchymal consolidation involving the right lower l obe. There is interval increase in degree of right pleural fluid, now moderate but simple appearing i n terms of its Hounsfield units. Interval development of multiple right sided rib fractures including the fifth, sixth, seventh, eighth, ninth and tenth ribs, several of which are displaced. There is as sociated extrapleural hematoma in several of these locations. There is no evidence for pneumothorax. There is no significant left pleural fluid present. There is debris present within the right lower lo be bronchus suggesting aspiration. The visualized portions of the upper abdomen demonstrate no significant interval change with respect to the prior study. Calcified perinephric hematoma is partially visualized. The osseous structures demonstrate no concerning osteoblastic or osteolytic lesions. IMPRESSION: 1. Interval development of multiple right sided rib fractures, some of which are displaced, asso ciated with mild extrapleural hematoma. 2. Persistent and increased right pleural fluid which does not appear to represent blood product s. 3. Persistent right lower lobe parenchymal consolidation with evidence for material within the r ight lower lobe bronchus that likely reflects aspiration. POS: [facility]
[2018-08-11] MEDS: Ampicillin/Sulbactam 1.5 GM in Sodium Chloride 0.9% 100 ML IVPB SCH (19:57)
[2018-08-11] MEDS: HumaLOG 300 UNITS/3 ML VIAL SC PRN (20:53)
[2018-08-12] MEDS: Ampicillin/Sulbactam 1.5 GM in Sodium Chloride 0.9% 100 ML IVPB SCH ×4 (01:25→19:43)
[2018-08-12] MEDS: cloNIDine 0.1 MG TAB PO PRN (02:51)
[2018-08-12] MEDS: Ibuprofen 600 MG TAB PO SCH ×3 (05:49→23:39)
[2018-08-12] MEDS: Acetaminophen 325 MG TAB PO SCH ×3 (05:49→18:39)
[2018-08-12 08:14] LABS: #Eosinphils 0.4 thou/uL (0.0-0.7); #Lymphocytes 0.9 thou/uL (1.20-3.40); #Monocytes 0.7 thou/uL (0.11-0.59); #Neutrophils 7.9 thou/uL (1.40-6.50); %Basophils 0.1 % (0.0-1.0); %Eosinophils 4.2 % (0.0-10.0); %Lymphocytes 9.3 % (21.0-51.0); %Monocytes 6.8 % (0.0-10.0); %Neutrophils 79.6 % (42.0-75.0); Hemoglobin 10.7 g/dL (14.0-18.0); Mean Corpuscular HGB CONC 32.3 g/dL (32.0-36.0); Mean Corpuscular Volume 93.1 fL (78.0-98.0); Mean Platelet Volume 7.5 fL (7.4-10.4); Platelet Count 232 thou/uL (130-400); RBC Distribution Width 12.2 % (11.5-14.5); Red Blood Cell (RBC) Count 3.55 mill/uL (4.70-6.10)
[2018-08-12 08:26] LABS: Anion Gap 14 mmol/L (10-20); BUN (Urea Nitrogen) 18 mg/dL (8.4-25.7); Calc. Creatinine Clearance 105 mL/min (70-130); Calcium 9.1 mg/dL (7.8-10.44); Carbon Dioxide 29 mmol/L (23-31); Chloride 95 mmol/L (98-107); Estimated GFR-MDRD Greater than 90; Glucose 136 mg/dL (83-110); Magnesium 2.2 mg/dL (1.6-2.6); Potassium 3.7 mmol/L (3.5-5.1); Sodium 134 mmol/L (136-145)
[2018-08-12] MEDS ORDERED: Amlodipine 5 MG TAB PO SCH (09:00)
[2018-08-12] MEDS: Aspirin 325 MG TAB PO SCH (11:17)
[2018-08-12] MEDS: Senokot S 8.6-50 MG TAB PO SCH ×2 (11:17→20:16)
[2018-08-12] MEDS: Gabapentin 100 MG CAP PO SCH ×3 (11:19→20:15)
[2018-08-12] MEDS: Famotidine 20 MG TAB PO SCH ×2 (11:19→11:20)
[2018-08-12] MEDS: Ferrous Sulfate 325 MG TAB PO SCH (11:19)
[2018-08-12] MEDS: Tamsulosin HCl 0.4 MG CAP PO SCH (11:19)
[2018-08-12] MEDS: DULoxetine 60 MG CAP PO SCH (11:20)
[2018-08-12] MEDS: Atorvastatin Calcium 10 MG TAB PO SCH (11:20)
[2018-08-12] MEDS: Polyethylene Glycol 3350 17 GM Packet PO SCH (13:03)
--- NOTE | 2018-08-12 13:37 | PDOC.PN ---
- Subjective Encounter Start Date: 08/12/18 Encounter Start Time: 13:35 Mr. Rojas was seen today in follow-up of Medical management following a fall. He is confused, and believes people are in the room, who are not there. He does not have any complaints. He denies chest pain or difficulty breathing. - Objective MAR Reviewed: Yes Vital Signs & Weight: Vital Signs (12 hours) Temp Pulse Resp BP BP BP Pulse Ox 08/12/18 12:00 97.5 F L 89 22 H 175/102 H 90 L 08/12/18 11:20 82 129/72 08/12/18 08:00 98.4 F 82 20 129/72 90 L 08/12/18 07:22 82 18 94 L 08/12/18 02:51 174/106 H 08/12/18 02:45 97.9 F 91 20 178/109 H 94 L Weight Weight 191 lb 12.8 oz I&O: 08/11/18 08/12/18 08/13/18 06:59 06:59 06:59 Intake Total 400 2000 Output Total 1435 700 Balance -1035 1300 Result Diagrams: 08/12/18 06:26 08/12/18 06:26 Additional Labs: Accuchecks 08/12/18 08/12/18 08/11/18 10:35 05:51 20:51 POC Glucose 160 H 136 H 216 H 08/11/18 15:35 POC Glucose 120 H Phys Exam - Physical Examination Respiratory: no wheezing, no rales, no rhonchi, clear to auscultation bilateral Cardiovascular: RRR, no significant murmur, no rub Gastrointestinal: soft, non-tender, no distention, positive bowel sounds Musculoskeletal: no edema Dx/Plan (1) HTN (hypertension) Code(s): I10 - ESSENTIAL (PRIMARY) HYPERTENSION Status: Chronic (2) DM2 (diabetes mellitus, type 2) Status: Chronic Qualifiers: Diabetes mellitus remote computer terminal operator insulin use: without remote computer terminal operator use (3) Fall Code(s): W19.XXXA - UNSPECIFIED FALL, INITIAL ENCOUNTER Status: Acute (4) Prolonged Q-T interval on ECG Code(s): R94.31 - ABNORMAL ELECTROCARDIOGRAM [ECG] [EKG] Status: Acute (5) Ribs, multiple fractures Code(s): S22.49XA - MULTIPLE FRACTURES OF RIBS, UNSP SIDE, INIT FOR CLOS FX Status: Acute (6) Pulmonary contusion Code(s): S27.329A - CONTUSION OF LUNG, UNSPECIFIED, INITIAL ENCOUNTER Status: Acute (7) Pneumonia Code(s): J18.9 - PNEUMONIA, UNSPECIFIED ORGANISM Status: Acute (8) Parapneumonic effusion Code(s): J18.9 - PNEUMONIA, UNSPECIFIED ORGANISM; J91.8 - PLEURAL EFFUSION IN OTHER CONDITIONS CLASSIFIED ELSEWHERE Status: Acute - Plan * HTN- blood pressure is better- will continue the current regimen * CT findings noted, Patient has a Probable Aspiration Pneumonia with Para- pneumonic Effusion- agree with antibiotic change to Unasyn, and await further recommendations from Dowel Inserting Machine Operator * Confusion- metabolic encephalopathy- likely from Pneumonia- hopefully this will improve with treatment * Multiple rib fractures, pulmonary Contusion- as per the trauma team. .
[2018-08-12] MEDS ORDERED: Ziprasidone 20 MG CAP PO SCH (14:15)
[2018-08-12] MEDS ORDERED: Lorazepam 1 MG TAB PO SCH (18:00)
--- NOTE | 2018-08-12 19:42 | PRG ---
DATE OF SERVICE: 08/12/2018 SUBJECTIVE: Mr. Rojas had a slightly better night, last night. CT did demonstrate consolidation of right lower lung concerning for aspiration as well as a pleural effusion. We have asked Pulmonary to see the patient and it is pending. He was started on Unasyn overnight for the same. He is n.p.o. pending a swallow eval. Still little agitated at times overnight, but has remained afebrile. Blood pressure is still up taking. OBJECTIVE: VITAL SIGNS: Temperature is 98.4, blood pressure 129/72, heart rate is 82, respiratory rate is 20, and O2 sat is 90% on room air. GENERAL: An 87-year-old male, sitting up in bed, talking with a friend. HEENT: Normocephalic and atraumatic. NECK: Trachea is midline. No JVD is appreciated. RESPIRATORY: Equal rise and fall. Bilateral breath sounds. Clear upper, slightly diminished on the right lower lobe. No rubs or wheezes. CARDIOVASCULAR: Regular rate and rhythm. No murmurs. ABDOMEN: Soft and nontender. MUSCULOSKELETAL: He moves extremities. PSYCH: Delusional at times. Delirious, but is alert. NEUROLOGIC: Alert and oriented to person and event. DIAGNOSTIC DATA: From today; white blood cell count of 10, platelets of 232, and hemoglobin and hematocrit are 10.7 and 33. Chemistries; sodium is 134, potassium is 3.7, chloride is 95, carbon dioxide is 29, BUN is 18, creatinine is 0.63, glucose is 136, and mag is 2.2. ASSESSMENT: 1. Status post fall with multiple right rib fractures. 2. Right pulmonary contusion versus consolidation. 3. Right pleural effusion. 4. Urinary tract infection, on antibiotics. 5. Acute agitation with hospital acquired delirium. PLAN: 1. Continue to monitor the patient, try to promote sleep wake cycles. 2. Pulmonary has been consulted and I appreciate recommendations. 3. Continue Unasyn. 4. Speech Therapy eval has been ordered. We will follow recommendations. 5. Encourage IS, oxygen as needed. 6. Encourage ambulation and mobility. 7. Continue trauma bowel regimen. 8. Continue all other supportive care. 9. Update the family on arrival, coordinate care with the daughter at the bedside, the bedside RN. We will continue to follow along. Job ID: [id number]
[2018-08-12] MEDS: Diabetic Tussin 200 MG/10 ML UDCUP PO SCH (20:15)
[2018-08-12] MEDS ORDERED: Lorazepam 2 MG/ML VIAL SLOW IVP SCH (20:30)
[2018-08-12] MEDS ORDERED: Melatonin 3 MG TAB PO SCH (21:00)
[2018-08-12] MEDS: Norepinephrine 8 MG/250 ML BAG IVPB PRN (21:30)
[2018-08-12] MEDS ORDERED: Norepinephrine 8 MG/0.9% NS 250 ML ONE (21:32)
[2018-08-12] MEDS ORDERED: Lorazepam 2 MG/ML VIAL ONE (21:58)
[2018-08-12] MEDS ORDERED: Morphine 2 MG/ML SYRINGE SLOW IVP PRN (21:59)
[2018-08-12] MEDS ORDERED: Propofol BOLUS 1,000 MG/100 ML VIAL IV PRN (21:59)
[2018-08-12] MEDS ORDERED: Lorazepam 2 MG/ML VIAL SLOW IVP PRN (21:59)
[2018-08-12] MEDS ORDERED: Fentanyl BOLUS 250 ML IVPB PRN (21:59)
[2018-08-12] MEDS ORDERED: DISCONTINUE PREVIOUS NARCOTIC PAIN MEDICATIONS AND BENZODIAZEPINES FS SCH (21:59)
[2018-08-12] MEDS ORDERED: Norepinephrine 8 MG/0.9% NS 250 ML IVPB SCH (22:15)
[2018-08-12 22:28] LABS: Bilirubin Small (Negative); Blood, Urine Small (Negative); Clarity CLOUDY (Clear); Glucose, Urine (Dipstick) 250 mg/dL (Negative); Leukocyte Moderate (Negative); Nitrite Negative (Negative); Protein, Urine (Dipstick) 100 mg/dL (Neg-Trace); Specific Gravity, Urine 1.023 (1.002-1.036); pH, Urine 5.5 (5.0-9.0)
[2018-08-12 22:30] LABS: Bacteria/HPF Rare-Few HPF (None Seen); Squamous Epithelial None Seen HPF (0-3); Yeast-AUWi Flag 24.7 (0-25.0)
[2018-08-12 22:40] LABS: Hyaline Casts/LPF 0-3 HYALINE CAST LPF (0-3 Hyaline)
[2018-08-12 22:44] LABS: Actual Bicarbonate (HCO3a) 25.5 mEq/L (22-28); Base Excess (BEa) 1.3 mEq/L (-2.0 to +3.0); CO2 Tension 38.2 mmHg (35.0-45.0); Calcium, Ionized 1.05 mmol/L (1.12-1.30); Carboxyhemoglobin (COHb) 1.1 gm% (0.0-3.0); Hemoglobin (Hb) 8.9 g/dL (14.0-18.0); O2 Tension (PaO2) 85.9 mmHg (> 60.0); pH, Arterial 7.44 (7.35-7.45)
[2018-08-12 22:44] LABS: Legionella Urinary Ag Negative (Negative); Strep pneumo Urine Ag NEGATIVE (NEGATIVE)
[2018-08-12 22:45] LABS: Puncture Site ALINE
--- NOTE | 2018-08-12 22:53 | RAD ---
PORTABLE SUPINE CHEST 08/12/18 PROVIDED CLINICAL HISTORY: Central line placement, intubation. FINDINGS: Comparison 08/11/18. There is interval development of opacification of the right hemithorax which may be pleural and/or pa renchymal in etiology. An endotracheal tube is now present, the tip of which projects in the region o f the thoracic inlet. A catheter overlying the right lung apex and right aspect of the expected locat ion of the mediastinum may reflect an IJ central line. The supine nature of the study is not sensitiv e for detection of pneumothorax. The left lung remains grossly clear. The visualized portions of the cardiac and mediastinal silhouette demonstrate no significant change. IMPRESSION: 1. Endotracheal tube and presumed IJ central line placement. 2. Development of opacification of the right hemithorax. POS: [facility]
[2018-08-12 23:44] LABS: #Basophils 0.1 thou/uL (0.0-0.2); #Eosinphils 0.1 thou/uL (0.0-0.7); #Lymphocytes 0.3 thou/uL (1.20-3.40); #Monocytes 0.7 thou/uL (0.11-0.59); %Basophils 0.6 % (0.0-1.0); %Eosinophils 0.4 % (0.0-10.0); %Lymphocytes 1.9 % (21.0-51.0); %Monocytes 4.1 % (0.0-10.0); Hemoglobin 8.7 g/dL (14.0-18.0); Mean Corpuscular HGB CONC 32.2 g/dL (32.0-36.0); Mean Corpuscular Hemoglobin 30.2 pg (27.0-31.0); Mean Corpuscular Volume 93.7 fL (78.0-98.0); Mean Platelet Volume 7.3 fL (7.4-10.4); Platelet Count 222 thou/uL (130-400); RBC Distribution Width 12.4 % (11.5-14.5); Red Blood Cell (RBC) Count 2.89 mill/uL (4.70-6.10); White Blood Cell (WBC) Count 17.2 thou/uL (4.8-10.8)
[2018-08-12 23:52] LABS: PTT 29.8 SEC (22.9-36.1)
[2018-08-12] MEDS: Vancomycin HCl 1.25 GM in Sodium Chloride 0.9% 250 ML 300 ML IVPB SCH (23:55)
[2018-08-12 23:59] LABS: INR-International Normal Ratio 1.3; Prothrombin Time 16.3 SEC (12.0-14.7)
[2018-08-13] LABS: Lactic Acid 2.8 mmol/L (0.5-2.2)
[2018-08-13] MEDS: Propofol 1,000 MG/100 ML VIAL IV PRN ×3 (00:03→18:20)
[2018-08-13] MEDS: Vasopressin 40 UNIT, Admixture Fee 1 EACH in Sodium Chloride 0.9% 100 ML IV SCH ×2 (00:03→18:08)
[2018-08-13] MEDS: Acetaminophen 325 MG TAB PO SCH ×4 (00:04→17:58)
[2018-08-13 00:15] LABS: ALT (SGPT) 36 U/L (8-55); AST (SGOT) 48 U/L (5-34); Albumin 3.1 g/dL (3.4-4.8); Alkaline Phosphatase 45 U/L (40-150); Anion Gap 18 mmol/L (10-20); BUN (Urea Nitrogen) 28 mg/dL (8.4-25.7); Bilirubin, Total 1.3 mg/dL (0.2-1.2); Calc. Creatinine Clearance 77 mL/min (70-130); Calcium 8.5 mg/dL (7.8-10.44); Carbon Dioxide 24 mmol/L (23-31); Chloride 97 mmol/L (98-107); Estimated GFR-MDRD 85; Globulin 2.8 g/dL (2.4-3.5); Glucose 283 mg/dL (83-110); Magnesium 1.8 mg/dL (1.6-2.6); Phosphorus 4.2 mg/dL (2.3-4.7); Potassium 4.1 mmol/L (3.5-5.1); Protein, Total 5.9 g/dL (5.8-8.1); Sodium 135 mmol/L (136-145)
[2018-08-13] MEDS ORDERED: Sodium Chloride 0.9% 1,000 ML IV SCH (00:15)
--- NOTE | 2018-08-13 00:16 | PDOC.EVN ---
Event Note - Event Note Event Note: Responded to code blue. Patient found in PEA arrest. Agitated today then witnesses in room patient had a respiratory arrest and then cardiac arrest. CPR on going on my arrival, BVM ventilation, had IV access, monitor was PEA rhythm. I ran code, ER team also responded. Given total of 3 mg of epi in 1 mg aloquots , 75 meQ of Bicarb. Once patient was intubated had ROSC, for full details please see code sheet. Updated family friend whom was in contact with patients daughter. ROSC was confirmed, EKG was ordered and reviewed. Patient blood pressure was soft, given push dose epi 30 mcg and improvement Ventricular ectopy noted Moved to ICU. In the ICU, I placed an emergent central line, IJ was actually plethoric. Levo was started and then vaso had to be added. Have updated family in consult room. Art line placed. Vent at AC 24/450/0.7/+5. Mvent at 10.6 L, Ppressure 26 CXR after line placement shows nearly white out of right lung, discussed with pul whom is en route now for bedside bronch. Patient is starting to withdrawl and have purposeful movement in ICU. Sedation with fentanyl and ativan, will use versed as needed. Want to avoid propofol if possible 2/2 hypotension. Orders placed: Blood culture x 2 Respiratory culture UA with reflex strep and legionella urine antigen Add vancomyacin and ct. unasyn Levo and vaso for MAP goal of 65 CBC, CMP, mag, phos, lactate level, coag's and abg ordered Restraints placed Suspended anti-HTN meds Start steroids solu-medrol ordered Ct. duonebs May need right thoracostomy vs chest tube placement, defer tonight as patient is tolerating vent well, airway pressures are acceptable. Coordinated with bedside RN, discharge coordinator, Dr. Franklin from pul. Updated patients daughter and friend at length. Answered all questions.
[2018-08-13] MEDS: fentaNYL Citrate/PF 2,000 MCG in Sodium Chloride 0.9% 60 ML IV SCH ×2 (00:21→17:55)
[2018-08-13] MEDS: Sodium Chloride 0.9% 1,000 ML IV SCH ×4 (00:23→21:00)
[2018-08-13 00:36] LABS: CKMB 12.1 ng/mL (0-6.6)
--- NOTE | 2018-08-13 00:58 | OP ---
DATE OF PROCEDURE: 08/12/2018 PROCEDURE PERFORMED: Central line placement. INDICATIONS: 1. Cardiac arrest. 2. Acute respiratory failure. 3. Hypertension. 4. Need for vascular access and resuscitation. CONSENT: Consent was emergent secondary to the patient's altered mental status. DESCRIPTION OF PROCEDURE: The patient was in the ICU. He was prepped and draped in the usual fashion. Skin was prepped with 4% chlorhexidine, allowed to completely dry, hand hygiene was observed. Gowns, mask, gloves were donned as well as hair protection. The patient was placed in the supine and Trendelenburg position with the head turned to left. Ultrasound guidance was used to locate the right internal jugular vein. Lidocaine 1%, a total of 5 mL was instilled to the soft tissue just above the right IJ. An 18-gauge introducer needle was then inserted into the right internal jugular of one attempt. Venous blood flow was obtained. The syringe was removed. A guidewire was placed through the introducer needle into the IJ. The needle was then removed over the guidewire. A stab incision was made at the sides, a dilator was placed over the guidewire dilating the tissues. Pressure was held. The dilator was removed. Next, a 20 cm 7-Latvian triple lumen catheter was placed over the guidewire and secured at 18 cm. The guidewire was then removed from the body. Blood was returned from all 3 ports. They were flushed with sterile saline. Counts were applied. The catheter was sutured in place with 3 sutures and covered with Tegaderm and BioDerm dressing. The patient tolerated the procedure well. Total blood loss estimated at 3 mL. Chest x-ray demonstrated good placement of the central venous catheter with no immediate complications noted including no pneumothorax. Job ID: [id number]
[2018-08-13] MEDS: Ampicillin/Sulbactam 1.5 GM in Sodium Chloride 0.9% 100 ML IVPB SCH ×4 (02:36→20:51)
[2018-08-13 02:42] LABS: Hemoglobin 7.6 g/dL (14.0-18.0); Mean Corpuscular HGB CONC 33.8 g/dL (32.0-36.0); Mean Corpuscular Hemoglobin 31.1 pg (27.0-31.0); Mean Corpuscular Volume 92.2 fL (78.0-98.0); Mean Platelet Volume 7.4 fL (7.4-10.4); Platelet Count 181 thou/uL (130-400); RBC Distribution Width 12.1 % (11.5-14.5); Red Blood Cell (RBC) Count 2.44 mill/uL (4.70-6.10)
[2018-08-13 03:25] LABS: Band 12 % (5-11); Lymphocytes 3 % (21-51); MDiff Complete? YES; Monocytes 3 % (0-10); Neutrophil 82 % (42-75)
[2018-08-13 03:41] LABS: Anion Gap 17 mmol/L (10-20); BUN (Urea Nitrogen) 26 mg/dL (8.4-25.7); Calc. Creatinine Clearance 94 mL/min (70-130); Calcium 7.7 mg/dL (7.8-10.44); Carbon Dioxide 21 mmol/L (23-31); Chloride 98 mmol/L (98-107); Estimated GFR-MDRD Greater than 90; Glucose 246 mg/dL (83-110); Magnesium 1.7 mg/dL (1.6-2.6); Potassium 4.1 mmol/L (3.5-5.1); Sodium 132 mmol/L (136-145)
[2018-08-13] MEDS: Insulin Regular 300 UNITS/3 ML VIAL SC PRN ×4 (03:57→21:13)
[2018-08-13] MEDS: Norepinephrine 8 MG/250 ML BAG IVPB PRN ×2 (04:04→09:02)
[2018-08-13] MEDS: Ibuprofen 600 MG TAB PO SCH ×3 (05:12→21:14)
--- NOTE | 2018-08-13 05:56 | CON ---
DATE OF CONSULTATION: SUBJECTIVE: Cam Rojas apparently coded this evening. I was contacted by the Trauma PA. He is on pressors when I arrived. OBJECTIVE: GENERAL: On exam, he would move all his extremities. He was intermittently bitting the endotracheal tube, so his sedation was increased. He had a bite block placed in his mouth. VITAL SIGNS: His blood pressure via right radial A-line was 120 systolic. He had approximately 10 mm paradox. RESPIRATORY: He was wheezing diffusely on exam. HEART: Regular rhythm. I did not hear a rub. ABDOMEN: Soft and nontender without guarding. EXTREMITIES: Unchanged from earlier today. LABORATORY DATA: White count 17.2, hemoglobin fell from 10.7 to 8.7. Chest radiograph shows increasing opacification of the right chest suggestive of pleural effusion or hemothorax. Sodium 134, potassium 3.7, chloride 95, bicarb 29, BUN 18, creatinine 0.63. Echocardiogram was reviewed from the , which was suboptimal, but showed normal ejection fraction. Blood gas shows pH 7.44, pCO2 of 38, pO2 of 85. We have increased his PEEP and decreased his FiO2 after his blood gas. IMPRESSION: 1. Status post cardiorespiratory arrest? secondary to mucus plugging on top of multiple rib fractures. 2. Probable hemothorax on the right. He is stable for now, probably recommend a chest tube placement in the morning. 3. His lab will be monitored. 4. Multiple rib fractures. 5. 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 6. History of orthostatic hypotension. I suspect this is what led to his fall. 7. Diabetes, not a clinical issue at this time. 8. He will continue to be volume resuscitated with ongoing attempt to wean pressors off. We will follow his H and H. 9. He is stable mechanically ventilated at this time. I have tried to simplify some of his medications. 10. Recommended bronchoscopy. Bronchoscope was introduced via the endotracheal tube with a bite block in place. His left lower lobe, left upper lobe, right upper lobe and then bronchus intermedius were inspected. He appeared to have extrinsic compression of his bronchus intermedius. His airway was very edematous in his right lower lobe, could get the scope into his right lower lobe, but not into his right middle lobe. It is unclear whether this is food service sales representatives of pathology or just extrinsic compression because of a shift of the lung parenchyma with the effusion/hemothorax on the right. I did not see any mucus plugs or endobronchial lesions suggestive of malignancy. He tolerated the procedure well. We will start him on steroids for his bronchospasm. He will continue nebulized treatments every 4 hours. I did draw a cortisol level. I suspect another liter of saline will enable us to slowly decrease his pressors. His ejection fraction is normal, so he should tolerate some IV fluid. Critical care time 30 minutes independent of the procedure performed. Job ID: [id number]
[2018-08-13 06:38] LABS: Actual Bicarbonate (HCO3a) 25.3 mEq/L (22-28); Base Excess (BEa) 2.1 mEq/L (-2.0 to +3.0); CO2 Tension 33.2 mmHg (35.0-45.0); Calcium, Ionized 1.08 mmol/L (1.12-1.30); Carboxyhemoglobin (COHb) 1.4 gm% (0.0-3.0); Hemoglobin (Hb) 7.9 g/dL (14.0-18.0); O2 Tension (PaO2) 73.2 mmHg (> 60.0); Potassium - ABG Lab 4.03 mmol/L (3.70-5.30)
[2018-08-13 07:33] LABS: Puncture Site ALINE
--- NOTE | 2018-08-13 08:58 | CON ---
DATE OF CONSULTATION: HISTORY OF PRESENT ILLNESS: Mr. Rojas is an 87-year-old male. He apparently fell fracturing multiple ribs. His daughter is here from [place], but was not with him when he fell. He was transferred apparently to the [place] [facility] and then transferred here. He has a history of orthostatic hypotension, according to his daughter. It is unclear whether or not he had just stood up when he fell down, but apparently he fell hard. It is also unclear to me whether or not he had a CT in the [place] [facility], although I would think he would have (of his head). He is confused now and an unreliable historian. PAST MEDICAL HISTORY: 1. Remarkable for BPH, diabetes, but only for few years. 2. Hypertension. 3. History of chronic pain from playing college football. 4. History of spinal cord stimulator implantation. 5. History of diabetes. 6. History of depression. 7. History of bilateral knee replacements. 8. History of right hip replacement. 9. Spinal decompression surgery reportedly? SOCIAL HISTORY: He is a nonsmoker, nondrinker. FAMILY HISTORY: Negative for lung disease in early age. REVIEW OF SYSTEMS: Not reliably obtainable. PHYSICAL EXAMINATION: VITAL SIGNS: He is actually trying to climb out of bed. He was all over the bed, but he was cooperative for his daughter and for me. He is afebrile, heart rate is 82, blood pressure 129/72, respiratory rate is 20, oximetry is 94% on nasal cannula. HEENT: His pupils are equal. Sclerae are anicteric. NECK: Supple. LUNGS: Remarkable for mild rhonchi. He does have a strong cough, but does not cough much. He is prompted to cough. HEART: Regular rhythm, S1 and S2 are normal. ABDOMEN: Soft and nontender. EXTREMITIES: Without clubbing, cyanosis or edema. LABORATORY DATA: White count 10, hemoglobin 10.7, platelets 232. Sodium 134, potassium 3.7, chloride 95, bicarb 29, BUN 18, creatinine 0.6. Glucoses today have all been 216 or less. D-dimer was high. Urinalysis showed numerous red and white cells. There is no urine culture. CT of the chest shows pleural fluid, which is likely blood superiorly. It also shows rib fractures. Inferiorly, there are atelectasis changes. IMPRESSION: Hemothorax. It is unlikely that thoracentesis will drain a fresh or recent hemothorax. It is also unlikely that he will allow a chest tube to dwell in place as might be needed. I am estimating that he may have 4500 mL of blood superiorly and posteriorly that he may be able to get by without draining. His daughter would prefer conservative approach. Reviewing his medications, Ativan was added today. He is on amlodipine for hypertension. He is on Unasyn. He is on aspirin. He is on a lipid drug, atorvastatin. He has a p.r.n. Flexeril, which actually might be fairly sedating for him. He is on Cymbalta and a low-dose Zoloft, which he was on at home. He is on iron and he is also on Neurontin, which he was on at home. For some reason at home, he was on midodrine for orthostatic hypotension as well as Florinef, but also on Toprol, which really does not make sense physiologically in my opinion. Hopefully, some of his medications can be simplified while he is in a care environment. 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 It does not appear that he is receiving opiates or benzodiazepines that would aggravate this encephalopathy. I do not feel the thoracentesis is indicated for the above reasons. I will, however, continue to look in on him. He may benefit from EzPAP if he would cooperate with that. Job ID: [id number]
--- NOTE | 2018-08-13 09:02 | RAD ---
AP CHEST: HISTORY: Respiratory failure. Pneumonia. COMPARISON: 08/12/2018 FINDINGS: Bilateral effusions, larger on the right. Diffuse opacification in the right chest, possibly due to fluid layering posteriorly. Left lung is aerated and clear. There is evidence of left basilar atele ctasis associated with the left effusion. ET tube and NG tube again noted. IMPRESSION: No significant change in the chest from yesterday. POS: [facility]
[2018-08-13] MEDS: DULoxetine 60 MG CAP PO SCH (09:43)
[2018-08-13 09:44] LABS: CKMB 6.6 ng/mL (0-6.6)
[2018-08-13] MEDS: Senokot S 8.6-50 MG TAB PO SCH ×2 (09:50→20:52)
[2018-08-13] MEDS: Famotidine 20 MG TAB PO SCH ×2 (09:51→20:52)
[2018-08-13] MEDS: Polyethylene Glycol 3350 17 GM Packet PO SCH (09:51)
[2018-08-13] MEDS: Aspirin 325 MG TAB PO SCH (09:51)
[2018-08-13] MEDS: Diabetic Tussin 200 MG/10 ML UDCUP PO SCH ×3 (09:51→20:52)
[2018-08-13] MEDS: Gabapentin 100 MG CAP PO SCH ×3 (09:51→20:52)
[2018-08-13] MEDS: Ferrous Sulfate 325 MG TAB PO SCH (09:52)
--- NOTE | 2018-08-13 10:26 | OP ---
DATE OF PROCEDURE: 08/12/2018 PROCEDURE PERFORMED: Arterial line placement. INDICATIONS: 1. Shock, requiring vasopressor agents. 2. Frequent arterial blood gas monitoring. 3. Intra-arterial blood pressure monitoring. CONSENT: Emergent secondary to the patient's altered mental status and mechanical ventilation. DESCRIPTION OF PROCEDURE: The patient was prepped and draped in usual fashion. The right radial artery was palpated and collateral circulation was confirmed. The patient was placed in a wrist flexion and secured with a splint, 4% chlorhexidine was used to cleanse the skin and allowed to completely dry. Hand hygiene was observed. Sterile towels created field around the site. Mask and sterile gloves were worn. The right radial artery was palpated. A 20-gauge arrow catheter was inserted with 2 attempts into the radial artery with good arterial blood flow. With Seldinger technique, catheter was passed into the radial artery. The wire was removed and transducer was connected. Placement was confirmed with waveform transduction. sutured in place with one 3-0 nylon suture and secured with a Tegaderm. Tape was applied. Estimated blood loss was less than 1 mL. The patient tolerated the procedure well. Job ID: [id number] [facility]
--- NOTE | 2018-08-13 10:48 | PDOC.PN ---
- Subjective Encounter Start Date: 08/13/18 Encounter Start Time: 10:46 Mr. lee was seen today in follow-up of respiratory failure. The events of early this morning were noted. He became apeaic and developed PEA, and required intubation. - Objective MAR Reviewed: Yes Vital Signs & Weight: Vital Signs (12 hours) Temp Pulse Resp BP Pulse Ox 08/13/18 06:23 104 H 118/61 08/13/18 06:20 104 H 24 H 98 08/13/18 06:00 24 H 08/13/18 04:00 98.8 F 08/13/18 03:43 24 H 08/13/18 02:19 98 08/13/18 02:18 97 24 H 100 08/13/18 02:00 24 H 08/13/18 00:00 99.0 F 24 H 100 Weight Weight 196 lb 6.91 oz Most Recent Monitor Data Heart Rate from ECG 101 NIBP 104/65 NIBP BP-Mean 78 Respiration from ECG 24 SpO2 98 I&O: 08/12/18 08/13/18 08/14/18 06:59 06:59 06:59 Intake Total 1999 3238.1 Output Total 700 785 Balance 1300 2453.1 Result Diagrams: 08/13/18 02:28 08/13/18 02:28 Additional Labs: Accuchecks 08/13/18 08/13/18 08/12/18 08:32 03:57 20:43 POC Glucose 253 H 241 H 245 H 08/12/18 08/12/18 15:55 10:35 POC Glucose 167 H 160 H Phys Exam - Physical Examination HEENT: PERRLA Respiratory: no wheezing, no rales + decreased breath sounds at the bases Cardiovascular: RRR, no significant murmur, no rub Gastrointestinal: soft, non-tender, no distention, positive bowel sounds Musculoskeletal: no edema Dx/Plan (1) HTN (hypertension) Code(s): I10 - ESSENTIAL (PRIMARY) HYPERTENSION Status: Chronic (2) DM2 (diabetes mellitus, type 2) Status: Chronic Qualifiers: Diabetes mellitus salvage determiner insulin use: without care home use (3) Fall Code(s): W19.XXXA - UNSPECIFIED FALL, INITIAL ENCOUNTER Status: Acute (4) Prolonged Q-T interval on ECG Code(s): R94.31 - ABNORMAL ELECTROCARDIOGRAM [ECG] [EKG] Status: Acute (5) Ribs, multiple fractures Code(s): S22.49XA - MULTIPLE FRACTURES OF RIBS, UNSP SIDE, INIT FOR CLOS FX Status: Acute (6) Pulmonary contusion Code(s): S27.329A - CONTUSION OF LUNG, UNSPECIFIED, INITIAL ENCOUNTER Status: Acute (7) Pneumonia Code(s): J18.9 - PNEUMONIA, UNSPECIFIED ORGANISM Status: Acute (8) Parapneumonic effusion Code(s): J18.9 - PNEUMONIA, UNSPECIFIED ORGANISM; J91.8 - PLEURAL EFFUSION IN OTHER CONDITIONS CLASSIFIED ELSEWHERE Status: Acute - Plan * Acute respiratory failure- Patient is now intubated, discussed with Dr. Duffy. Plan is for chest tube placement. Possible Hemothorax, vs, Aspiration Pneumonia with parapneumonic effusion or both * Blood pressure support with Vasopressin * DM- blood glucose is a bit elevated- likely due to steroids- Metformin is on hold- will add a low dose long acting Insulin
[2018-08-13] MEDS: Atorvastatin Calcium 10 MG TAB PO SCH (10:50)
--- NOTE | 2018-08-13 12:32 | EKG ---
Test Reason : POST ARREST Blood Pressure : / mmHG Vent. Rate : 134 BPM Atrial Rate : 017 BPM P-R Int : 000 ms QRS Dur : 074 ms QT Int : 308 ms P-R-T Axes : 000 -19 089 degrees QTc Int : 459 ms Atrial fibrillation with rapid ventricular response with premature ventricular or aberrantly conducte d complexes Minimal voltage criteria for LVH, may be normal variant Inferior infarct , age undetermined (doubtful) Marked ST abnormality, possible anterolateral subendocardial injury Abnormal ECG When compared with ECG of 07-APR-2017 11:03, Significant changes have occurred Confirmed by DC HUMMEL ([id number]) on 08/13/2018 12:31:57 PM Referred By: Confirmed By:DC HUMMEL
[2018-08-13] MEDS: Haloperidol Lactate 5 MG/ML VIAL IM SCH ×3 (13:13→20:52)
[2018-08-13] MEDS: Vancomycin HCl 1.25 GM in Sodium Chloride 0.9% 250 ML 300 ML IVPB SCH (13:28)
[2018-08-13] MEDS ORDERED: Sodium Bicarb 50 MEQ/50 ML Abboject 8.4% SYRINGE ONE (14:08)
[2018-08-13] MEDS ORDERED: EPINEPHrine 1 MG/10 ML Abboject SYRINGE ONE (14:08)
--- NOTE | 2018-08-13 14:24 | PRG ---
DATE OF SERVICE: 08/13/2018 SUBJECTIVE: Mr. Rojas did well the rest of the night. His hemodynamics have been stable. His A-line is positional, so we will remove this today. OBJECTIVE: VITAL SIGNS: Blood pressure 118/61, heart rate is 104, and respiratory rate is 24. LUNGS: His left lung is clear. HEART: Regular rhythm. ABDOMEN: Soft. EXTREMITIES: When sedation is turned off, he moves all four extremities and starts trying to get out of bed. Chest radiograph still shows an opaque right chest. Consult has been placed for chest tube later today. LABORATORY DATA: White count is 12, hemoglobin is 7.6, platelets 181,000. Hemoglobin was 10.7 two days ago. He has 12% bands on his peripheral smear. IMPRESSION AND PLAN: 1. Status post cardiorespiratory arrest last night. He may have just run himself out and reached a point where he became apneic because of his encephalopathy. 2. I have started him on [id number] Haldol. He will need some pain medication. 3. We will have the chest tube in place. He is not a candidate for weaning and extubation probably for another few days. 4. He has blood loss anemia, most likely in the pleural space. He will probably need a transfusion within the next day or two. 5. We will continue with IV fluids. 6. His renal function is stable. 7. He remains on empiric broad antimicrobial therapy. Blood cultures from last night are negative so far. If they remain negative, his vancomycin probably can be discontinued. I met with the daughter and answered all of her questions. Job ID: [id number]
[2018-08-13 14:30] LABS: CKMB 4.1 ng/mL (0-6.6)
[2018-08-13] MEDS: Insulin Glargine 10 UNITS in Pre-Filled Syringe 1 EACH SC SCH (20:52)
[2018-08-13] MEDS: Vancomycin HCl 1.25 GM in Sodium Chloride 0.9% 250 ML 250 ML IVPB SCH (23:00)
--- NOTE | 2018-08-13 23:38 | PRG ---
DATE OF SERVICE: 08/13/2018 SUBJECTIVE: This is an 87-year-old male, status post fall resulting in multiple rib fractures. Throughout the course of his hospitalization, the patient had become increasingly agitated with concerns for hospital delirium. There were also concerns that the patient was possibly aspirating. He was seen and evaluated yesterday by the Pulmonary team for a right pleural effusion. Overnight, the patient had a PEA arrest. This was a witnessed arrest and believed to be respiratory in nature. The patient did have ROSC after 3 rounds of epi. He remains intubated and sedated on multiple pressors this morning. The patient was seen and evaluated by Critical Care/Pulmonary Medicine as well. He did have a bronchoscopy which did show some edema and swelling of the right lower airways. The patient has a chest x-ray this morning was significant for whiteout of the right lung. Plan for chest tube. OBJECTIVE: VITAL SIGNS: Heart rate 97, blood pressure 113/71, O2 saturation 99% on the ventilator. GENERAL: Elderly appearing male, agitated, resting in bed, intubated and lightly sedated. PULMONARY: Symmetric chest rise. CARDIOVASCULAR: Tachycardic. No obvious murmurs, rubs, or gallops. GI: Abdomen is soft, nontender, and nondistended. MUSCULOSKELETAL: Moves all extremities. NEUROLOGIC: No focal deficit is noted. Agitated and not following commands. LABORATORY FINDINGS: WBC 12.0, hemoglobin 7.6, hematocrit 22.5, platelet count 181. Sodium 132, potassium 4.1, chloride 98, carbon dioxide 21, BUN 26, creatinine 0.71, glucose 246, and troponin 0.186. ASSESSMENT: 1. Status post fall with possible syncopal event. 2. Multiple rib fractures. 3. Right pleural effusion, likely hemothorax. 4. Respiratory/pulseless electrical activity arrest, status post Return of spontaneous circulation. 5. Shock. 6. Acute respiratory failure. 7. Electrolyte abnormality. 8. Urinary tract infection. 9. History of dementia with agitation and delirium. PLAN: Chest tube placement. Transfuse 1 unit of PRBC for symptomatic anemia and shock. Wean pressors as able. Continue antibiotics as ordered. Follow culture data. I have discussed case with Critical Care Medicine and appreciate their recommendations. Continue to hold all antihypertensives. Follow urine output. Transfuse, CVP, a.m. labs. Plan of care was discussed with the patient's daughter at bedside who consents to the chest tube. The patient was discussed with Trauma attending. Job ID: [id number]
[2018-08-14] MEDS: Acetaminophen 325 MG TAB PO SCH ×4 (00:55→18:34)
[2018-08-14] MEDS: Haloperidol Lactate 5 MG/ML VIAL IM SCH ×6 (00:56→21:18)
[2018-08-14] MEDS: Insulin Regular 300 UNITS/3 ML VIAL SC PRN ×3 (00:57→16:29)
[2018-08-14] MEDS: Ampicillin/Sulbactam 1.5 GM in Sodium Chloride 0.9% 100 ML IVPB SCH ×4 (02:20→20:18)
[2018-08-14] MEDS: Propofol 1,000 MG/100 ML VIAL IV PRN (02:20)
--- NOTE | 2018-08-14 03:23 | PRG ---
DATE OF SERVICE: 08/14/2018 SUBJECTIVE: Cam Rojas is an 87-year-old male trauma patient, transferred from [facility] in [place] after a fall, has multiple rib fractures, right side. He has a past history of diabetes, hypertension, reflux, and BPH. He has a history of multiple falls. He has had bilateral knee replacements, right hip replacements, spinal decompression, and spinal stimulator. The patient lives with his . He has been ambulating independently. He was admitted to the hospital on 08/08/2018, under Trauma Service, followed by Dr. Duffy. The patient had been doing fairly well, but today suffered a deterioration. It has been noted overall that he has been declining slowly declining, his hemoglobin 11.5 on admission, 11.6 on August 11, 8.7 yesterday, and 7.6 today. The patient developed problems at midnight with cardiopulmonary arrest requiring resuscitation and intubation. He was found to be in PEA. CPR initiated. Chest x-ray revealed increased hemothorax on the right. Plan is for a right tube thoracostomy. The patient is sedated on the ventilator. OBJECTIVE: VITAL SIGNS: Blood pressure 115/69 and heart rate 85. LUNGS: Clear to auscultation. CARDIAC: Regular rate and rhythm without murmur or gallop. ABDOMEN: Soft and nontender. PLAN: Plan is for right tube thoracostomy. Continue ventilatory management per Critical Care. Agree with management today. Job ID: [id number]
[2018-08-14] MEDS: Sodium Chloride 0.9% 1,000 ML IV SCH ×3 (03:30→18:34)
--- NOTE | 2018-08-14 04:01 | OP ---
DATE OF PROCEDURE: 08/13/2018 PROCEDURE PERFORMED: Right tube thoracostomy. INDICATIONS: 1. Right hemothorax. 2. Right effusion. DESCRIPTION OF PROCEDURE: The patient is status post fall resulting in multiple rib fractures. Throughout the hospital stay, the patient became increasingly agitated. The patient was prepped and draped in usual fashion and hygiene was observed. The skin was prepped with 4% chlorhexidine swab and allowed to completely dry. Gowns, mask, cap and sterile gloves were donned. Appropriate site, mid axillary was selected. The patient was placed in a supine position with his right hand over his head with a restraint. Local infiltration with 1% lidocaine with epinephrine into the soft tissue and into the pleural space with a return was noted, a total of 12 mL was instilled. A #10 scalpel was then used to make a linear incision into the skin. The soft tissue was dissected away with blunt dissection. Kellys were used to enter the pleural cavity and an opening into the pleural cavity was dilated with Silke forceps and withdrawn creating a track. I placed my finger into the chest cavity confirming the track and no obstructed physiology. Next, a 36-Czech chest tube was inserted into the track that was made with the Kellys. Dark blood was immediately returned upon entering the pleural cavity, also condensation was noted in the tube. Chest tube was secured with sutures and iodoform gauze and was placed around the incision site as well as a bulky dressing. This was taped in place with tape and the tube was secured to the chest wall. It was hooked to suction and mild air leak was noted. The patient tolerated the procedure very well. Total blood loss of 2000 mL of dark blood into the chamber. Followup chest x-ray was obtained and showed good position of the thoracostomy tube. Good lung markings noted. The patient's SpO2 remained at 100%. The procedure was completed with Dr. Frazier. Job ID: [id number] [facility]
[2018-08-14 05:25] LABS: Anion Gap 12 mmol/L (10-20); BUN (Urea Nitrogen) 27 mg/dL (8.4-25.7); Calc. Creatinine Clearance 105 mL/min (70-130); Calcium 8.1 mg/dL (7.8-10.44); Carbon Dioxide 24 mmol/L (23-31); Chloride 105 mmol/L (98-107); Estimated GFR-MDRD Greater than 90; Glucose 163 mg/dL (83-110); Potassium 3.3 mmol/L (3.5-5.1); Sodium 138 mmol/L (136-145)
[2018-08-14 05:33] LABS: Band 4 % (5-11); Hemoglobin 7.7 g/dL (14.0-18.0); Lymphocytes 3 % (21-51); MDiff Complete? YES; Mean Corpuscular HGB CONC 33.6 g/dL (32.0-36.0); Mean Corpuscular Hemoglobin 30.8 pg (27.0-31.0); Mean Corpuscular Volume 91.7 fL (78.0-98.0); Mean Platelet Volume 7.2 fL (7.4-10.4); Monocytes 3 % (0-10); Neutrophil 90 % (42-75); PLT Morphology Comment Appears Adequate; Platelet Count 194 thou/uL (130-400); Red Blood Cell (RBC) Count 2.51 mill/uL (4.70-6.10); White Blood Cell (WBC) Count 10.2 thou/uL (4.8-10.8)
[2018-08-14] MEDS: Ibuprofen 600 MG TAB PO SCH ×3 (06:03→21:30)
[2018-08-14] MEDS: fentaNYL Citrate/PF 2,000 MCG in Sodium Chloride 0.9% 60 ML IV SCH (07:16)
[2018-08-14 08:07] LABS: Actual Bicarbonate (HCO3a) 25.1 mEq/L (22-28); Base Excess (BEa) 1.8 mEq/L (-2.0 to +3.0); CO2 Tension 33.8 mmHg (35.0-45.0); Calcium, Ionized 1.11 mmol/L (1.12-1.30); Carboxyhemoglobin (COHb) 1.4 gm% (0.0-3.0); O2 Tension (PaO2) 83.8 mmHg (> 60.0); Potassium - ABG Lab 3.34 mmol/L (3.70-5.30); pH, Arterial 7.49 (7.35-7.45)
[2018-08-14 08:32] LABS: Puncture Site RBA
--- NOTE | 2018-08-14 08:54 | PRG ---
DATE OF SERVICE: SUBJECTIVE: Cam Rojas remains intubated on the vent, sedated on Diprivan and fentanyl, status post trauma, right hemothorax. X-ray looks much better today. OBJECTIVE: VITAL SIGNS: His respiratory rate is set at 24. His blood pressure 114/60, sats 100%. Pulse is 80. Afebrile. CHEST: Decreased breath sounds, no wheezing. CARDIAC: Normal S1 and S2. No gallops. ABDOMEN: No masses. LABORATORY DATA: White count 10,000, H and H 7 and 23, platelet count is normal. His lytes are normal. IMPRESSION: 1. Status post cardiopulmonary arrest. 2. Encephalopathy. 3. Hemothorax. 4. Continue chest tube drainage. Continue antibiotics. Adjust vent, wean as tolerated. One hour for critical time. Job ID: [id number]
[2018-08-14] MEDS: DULoxetine 60 MG CAP PO SCH (08:59)
[2018-08-14] MEDS: Senokot S 8.6-50 MG TAB PO SCH ×2 (08:59→21:18)
[2018-08-14] MEDS: Ferrous Sulfate 325 MG TAB PO SCH (08:59)
[2018-08-14] MEDS: Aspirin 325 MG TAB PO SCH (08:59)
[2018-08-14] MEDS: Famotidine 20 MG TAB PO SCH ×2 (08:59→21:19)
[2018-08-14] MEDS: Polyethylene Glycol 3350 17 GM Packet PO SCH (09:00)
[2018-08-14] MEDS: Insulin Glargine 10 UNITS in Pre-Filled Syringe 1 EACH SC SCH ×2 (09:04→21:19)
[2018-08-14] MEDS: Atorvastatin Calcium 10 MG TAB PO SCH (09:05)
[2018-08-14] MEDS: Gabapentin 100 MG CAP PO SCH ×3 (09:06→21:19)
[2018-08-14] MEDS: Diabetic Tussin 200 MG/10 ML UDCUP PO SCH ×3 (09:06→21:18)
--- NOTE | 2018-08-14 09:32 | RAD ---
FRONTAL RADIOGRAPH OF CHEST PORTABLE SEMIUPRIGHT: Date: 08/14/18 COMPARISON: 08/13/18. HISTORY: Ventilated patient. FINDINGS: Endotracheal tube and nasogastric tube in proper position. A chest tube overlies the right lung base. Blunting of the costophrenic angles noted, consistent with bilateral pleural effusions, right greater than left. There is hazy density throughout the right hem ithorax with sparing of the right lung apex suggesting nonspecific diffuse pleural and parenchymal op acity throughout the right hemithorax. Multiple posterolateral right-sided rib fractures are noted. IMPRESSION: Lines and tubes as above. Bilateral pleural effusions, right greater than left, with persistent nonsp ecific hazy density throughout the right hemithorax which suggests a combination of nonspecific pleur al and parenchymal opacity. Continued follow-up advised. POS: [facility]
--- NOTE | 2018-08-14 10:54 | PDOC.PN ---
- Subjective Encounter Start Date: 08/14/18 Encounter Start Time: 10:52 Patient seen and examined, no new major events in past 24 hours, no family at bedside. - Objective Vital Signs & Weight: Vital Signs (12 hours) Temp Pulse Resp BP Pulse Ox 08/14/18 08:51 123 H 129/86 08/14/18 08:50 128 H 14 100 08/14/18 06:00 24 H 08/14/18 04:00 98.1 F 24 H 08/14/18 02:11 80 08/14/18 02:10 81 24 H 100 08/14/18 02:00 24 H 08/14/18 00:00 98.4 F 24 H Weight Admit Weight 196 lb Weight 204 lb 2.369 oz Most Recent Monitor Data Heart Rate from ECG 79 NIBP 114/66 NIBP BP-Mean 82 Respiration from ECG 24 SpO2 100 I&O: 08/13/18 08/14/18 08/15/18 06:59 06:59 06:59 Intake Total 3238.1 4753.3 Output Total 785 3664 Balance 2453.1 1089.3 Result Diagrams: 08/14/18 04:50 08/14/18 04:50 Additional Labs: Accuchecks 08/14/18 08/14/18 08/13/18 04:38 00:51 20:59 POC Glucose 164 H 179 H 204 H 08/13/18 08/13/18 18:38 13:35 POC Glucose 196 H 200 H Phys Exam - Physical Examination Constitutional: NAD HEENT: PERRLA, moist MMs intubated, NG/OG tube in place Neck: no nodes Respiratory: no wheezing, no rales, no rhonchi Cardiovascular: RRR, no rub 2/6 KANDI Gastrointestinal: soft, non-tender, no distention Musculoskeletal: pulses present, edema present (trace) sedated Deviation from normal: sedated Dx/Plan (1) Diabetes Code(s): E11.9 - TYPE 2 DIABETES MELLITUS WITHOUT COMPLICATIONS Status: Acute (2) Ribs, multiple fractures Code(s): S22.49XA - MULTIPLE FRACTURES OF RIBS, UNSP SIDE, INIT FOR CLOS FX Status: Acute (3) Syncope and collapse Code(s): R55 - SYNCOPE AND COLLAPSE Status: Acute Comment: Orthostatic hypotension (4) UTI (urinary tract infection) Status: Acute - Plan * continue current plan of care * BP stable * basal insulin started today, will monitor and adjust insulins to try and target sugars less than 200 * chest tube in and functioning * no family at bedside
[2018-08-14] MEDS ORDERED: VANCO IVPB PRN (11:07)
[2018-08-14 11:40] LABS: Vancomycin, Random 11.4 ug/mL (See Comment)
[2018-08-14 11:40] LABS: Vancomycin, Trough 11.6 ug/mL
[2018-08-14] MEDS ORDERED: Fentanyl 250 MCG/5 ML VIAL ONE (14:07)
[2018-08-14] MEDS ORDERED: Phenylephrine HCL 10 MG/ML VIAL ONE (14:16)
[2018-08-14] MEDS ORDERED: PHENYLEPHRINE-NS 100 MCG/ML 10 ML SYRINGE ONE (14:16)
[2018-08-14] MEDS ORDERED: Esmolol 100 MG/10 ML VIAL ONE (14:16)
[2018-08-14] MEDS: Vancomycin HCl 1.5 GM in Sodium Chloride 0.9% 250 ML 250 ML IVPB SCH (15:11)
[2018-08-14] MEDS: Vancomycin HCl 1.25 GM in Sodium Chloride 0.9% 250 ML 250 ML IVPB SCH (15:50)
[2018-08-14 16:14] LABS: Hemoglobin 7.9 g/dL (14.0-18.0); Platelet Count 193 thou/uL (130-400)
--- NOTE | 2018-08-14 16:29 | RAD ---
PORTABLE CHEST: 08/14/18 History: evaluation of pneumothorax COMPARISON: Earlier exam of the same day. Heart size is enlarged. Endotracheal tube is in satisfactory position. NG tube is below the hemidiaph ragm. Right sided central line is unchanged in position. The right chest tube is seen with the tip al yaima the right hemidiaphragm. Side hole is very close to being extrinsic to the patient. There is some parenchymal and/or pleural opacity seen over the right lung. It spares the more peripheral portion o f the lung but does not have the appearance of a pneumothorax. This is a stable finding as compared t o the prior exam. Left sided effusion is present. The right sided effusion may be slightly reduced in size. IMPRESSION: The right chest tube appears retracted slightly as compared to the prior examination. Otherwise essen tially stable chest. POS: [facility]
--- NOTE | 2018-08-14 16:32 | CON ---
DATE OF CONSULTATION: HISTORY OF PRESENT ILLNESS: This is an 87-year-old gentleman, who was transferred from [facility] on 08/08 following a fall with right-sided rib fractures. He was admitted here and then on 08/12 in the evening, he sustained a cardiorespiratory arrest, receiving CPR. EKG at that time showed atrial fibrillation. The patient was intubated and noted to have a large right-sided effusion compared to previous chest x-ray. Last night, a chest tube was placed and 2100 mL of blood was removed and his subsequent chest x-ray this morning shows continued hemothorax plus or minus contusion. PAST MEDICAL HISTORY: Includes previous fall history. History of diabetes, hypertension, chronic pain, and diabetes mellitus. He has had previous bilateral knee replacements, hip replacements, spinal cord decompression, and stimulator. PHYSICAL EXAMINATION: GENERAL: Today, he is intubated. VITAL SIGNS: Heart rate 100 and blood pressure . LUNGS: Clear to auscultation. CARDIAC: Mild resting tachycardia. No murmurs. ABDOMEN: Firm and nontender. EXTREMITIES: Without edema. PLAN: At this time is for right thoracoscopy for evacuation of the hemothorax and inspection for any further bleeding issues. I am awaiting family to arrive for informed consent. Job ID: [id number]
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
[2018-08-15] MEDS ORDERED: Vancomycin HCl 1.5 GM in Sodium Chloride 0.9% 250 ML 250 ML IVPB SCH
[2018-08-15] MEDS: Haloperidol Lactate 5 MG/ML VIAL IM SCH ×2 (00:30→05:15)
[2018-08-15] MEDS: Acetaminophen 325 MG TAB PO SCH ×5 (00:30→23:37)
[2018-08-15] MEDS: Sodium Chloride 0.9% 1,000 ML IV SCH ×3 (00:31→13:06)
[2018-08-15] MEDS: fentaNYL Citrate/PF 2,000 MCG in Sodium Chloride 0.9% 60 ML IV SCH (01:10)
[2018-08-15] MEDS: Ampicillin/Sulbactam 1.5 GM in Sodium Chloride 0.9% 100 ML IVPB SCH ×4 (01:52→19:58)
[2018-08-15] MEDS: Vancomycin HCl 1.5 GM in Sodium Chloride 0.9% 250 ML 250 ML IVPB SCH ×2 (03:17→14:08)
[2018-08-15 05:13] LABS: Band 2 % (5-11); Hemoglobin 9.3 g/dL (14.0-18.0); Lymphocytes 4 % (21-51); MDiff Complete? YES; Mean Corpuscular HGB CONC 33.5 g/dL (32.0-36.0); Mean Corpuscular Hemoglobin 31.3 pg (27.0-31.0); Mean Corpuscular Volume 93.5 fL (78.0-98.0); Monocytes 4 % (0-10); Neutrophil 90 % (42-75); PLT Morphology Comment Appears Adequate; Platelet Count 212 thou/uL (130-400); Polychromasia SLIGHT = 2-3 cells (100X) (0-2/hpf); RBC Distribution Width 13.2 % (11.5-14.5); Red Blood Cell (RBC) Count 2.98 mill/uL (4.70-6.10); White Blood Cell (WBC) Count 10.3 thou/uL (4.8-10.8)
[2018-08-15 05:19] LABS: Anion Gap 8 mmol/L (10-20); BUN (Urea Nitrogen) 19 mg/dL (8.4-25.7); Calc. Creatinine Clearance 111 mL/min (70-130); Calcium 7.8 mg/dL (7.8-10.44); Carbon Dioxide 27 mmol/L (23-31); Chloride 109 mmol/L (98-107); Estimated GFR-MDRD Greater than 90; Glucose 124 mg/dL (83-110); Potassium 3.7 mmol/L (3.5-5.1); Sodium 140 mmol/L (136-145)
[2018-08-15] MEDS: Ibuprofen 600 MG TAB PO SCH ×3 (05:21→21:28)
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
[2018-08-15] MEDS: Polyethylene Glycol 3350 17 GM Packet PO SCH (08:39)
[2018-08-15] MEDS: Aspirin 325 MG TAB PO SCH (08:39)
[2018-08-15] MEDS: Atorvastatin Calcium 10 MG TAB PO SCH (08:39)
[2018-08-15] MEDS: Senokot S 8.6-50 MG TAB PO SCH ×2 (08:39→21:28)
[2018-08-15] MEDS: Diabetic Tussin 200 MG/10 ML UDCUP PO SCH ×3 (08:40→21:28)
[2018-08-15] MEDS: DULoxetine 60 MG CAP PO SCH (08:40)
[2018-08-15] MEDS: Famotidine 20 MG TAB PO SCH ×2 (08:40→21:28)
[2018-08-15] MEDS: Gabapentin 100 MG CAP PO SCH ×3 (08:40→21:28)
[2018-08-15] MEDS: Ferrous Sulfate 325 MG TAB PO SCH (08:40)
[2018-08-15] MEDS: Insulin Glargine 10 UNITS in Pre-Filled Syringe 1 EACH SC SCH ×2 (08:41→21:28)
[2018-08-15] MEDS ORDERED: Furosemide 20 MG/2 ML VIAL SLOW IVP SCH (09:00)
--- NOTE | 2018-08-15 09:33 | RAD ---
PORTABLE CHEST 1 VIEW: Date: 08/15/18 Time: 0511 hours HISTORY: Respiratory failure. FINDINGS/IMPRESSION: No significant interval change is seen since the previous day's exam. POS: LAKESHA
--- NOTE | 2018-08-15 10:09 | PDOC.PN ---
- Subjective Encounter Start Date: 08/15/18 Encounter Start Time: 10:07 Patient seen and examined, no major events overnight, no family at bedside. - Objective Vital Signs & Weight: Vital Signs (12 hours) Temp Pulse Resp BP Pulse Ox 08/15/18 09:53 11 L 08/15/18 08:00 4 L 08/15/18 07:23 116 H 13 98 08/15/18 07:20 120 H 175/72 H 08/15/18 07:00 98.7 F 08/15/18 06:00 14 08/15/18 04:00 98.9 F 16 08/15/18 02:00 16 08/15/18 01:59 94 08/15/18 01:58 94 16 100 08/15/18 00:00 98.7 F 16 08/14/18 22:46 94 08/14/18 22:45 93 16 100 Weight Admit Weight 196 lb Weight 220 lb 14.451 oz Most Recent Monitor Data Heart Rate from ECG 113 NIBP 140/71 NIBP BP-Mean 94 Respiration from ECG 18 SpO2 98 I&O: 08/14/18 08/15/18 08/16/18 06:59 06:59 06:59 Intake Total 4753.3 3654 Output Total 3664 1740 235 Balance 1089.3 1914 -235 Result Diagrams: 08/15/18 04:30 08/15/18 04:30 Additional Labs: Accuchecks 08/15/18 08/15/18 08/14/18 04:16 00:21 20:21 POC Glucose 118 H 118 H 124 H 08/14/18 08/14/18 16:06 09:53 POC Glucose 158 H 166 H Phys Exam - Physical Examination Constitutional: NAD HEENT: PERRLA, sclera anicteric +Ng tube +og tube coarse breath sounds no respiratory distress Cardiovascular: no significant murmur, no rub tachycardia Gastrointestinal: soft, non-tender, no distention Musculoskeletal: pulses present, edema present (trace) Dx/Plan (1) Diabetes Code(s): E11.9 - TYPE 2 DIABETES MELLITUS WITHOUT COMPLICATIONS Status: Acute (2) Ribs, multiple fractures Code(s): S22.49XA - MULTIPLE FRACTURES OF RIBS, UNSP SIDE, INIT FOR CLOS FX Status: Acute (3) Syncope and collapse Code(s): R55 - SYNCOPE AND COLLAPSE Status: Acute Comment: Orthostatic hypotension (4) UTI (urinary tract infection) Status: Acute - Plan * sugars have come down nicely so far, will continue with current regimen * tachycardia likely due to SBT going on, BP remains towards lower side, MAP is good for now, will monitor, may be due to compensation to try and raise BP along with component of pain/discomfort from ET tube as well * Hgb stable for now * no changes in plan of care otherwise * will follow along with you from a medical perspective and make changes as appropriate * no family at bedside.
[2018-08-15] MEDS ORDERED: Magnesium 2 GM/50 ML 2 GM in Premix Bag 1 BAG IVPB SCH (14:45)
[2018-08-15] MEDS ORDERED: Digoxin 0.5 MG/2 ML AMP SLOW IVP SCH (14:45)
[2018-08-15] MEDS: Haloperidol Lactate 5 MG/ML VIAL IM PRN (14:51)
[2018-08-15] MEDS: Lactated Ringer's 1,000 ML IV SCH (16:30)
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
--- NOTE | 2018-08-15 21:46 | OP ---
DATE OF PROCEDURE: 08/14/2018 PREOPERATIVE DIAGNOSIS: Clotted hemothorax, right. POSTOPERATIVE DIAGNOSIS: Clotted hemothorax, right. PROCEDURE PERFORMED: Right thoracoscopy with evacuation of hematoma. ANESTHESIA: General. ESTIMATED BLOOD LOSS: Minimal. DESCRIPTION OF PROCEDURE: After adequate anesthesia had been obtained and confirmed, double-lumen tube placement, the patient was placed in the left lateral decubitus position and padded. Following this, he was prepped and draped. The previous chest tube had been removed and this site was chosen for a 10 mm trocar and a 5-Welsh scope. The scope was inserted and the chest inspected, and there was a moderate amount of old clot in the costophrenic angle. There was a bulging hematoma that was soft on the posterior chest wall, probably overlying previous rib fractures and probably the site of previous bleeding, although there was certainly no evidence of active bleeding at this time. Following this, a separate incision was made and the clotted hemothorax was removed through a separate port site without a port. Following this, 3 L of irrigation were used to wash out the chest cavity. Once again, visualization demonstrated no evidence of bleeding. A 32 chest tube was then placed through the second port site and the wounds were then closed. The patient tolerated the procedure well. Job ID: [id number]
[2018-08-16] MEDS: Ampicillin/Sulbactam 1.5 GM in Sodium Chloride 0.9% 100 ML IVPB SCH ×2 (02:05→08:36)
[2018-08-16] MEDS: Lactated Ringer's 1,000 ML IV SCH ×2 (02:05→11:35)
[2018-08-16 02:35] LABS: Vancomycin, Trough 16.3 ug/mL
[2018-08-16 02:43] LABS: Band 3 % (5-11); Hemoglobin 9.5 g/dL (14.0-18.0); Lymphocytes 7 % (21-51); MDiff Complete? YES; Mean Corpuscular HGB CONC 32.9 g/dL (32.0-36.0); Mean Corpuscular Hemoglobin 31.3 pg (27.0-31.0); Mean Corpuscular Volume 95.2 fL (78.0-98.0); Mean Platelet Volume 6.7 fL (7.4-10.4); Monocytes 3 % (0-10); Neutrophil 87 % (42-75); Platelet Count 201 thou/uL (130-400); RBC Distribution Width 13.4 % (11.5-14.5); Red Blood Cell (RBC) Count 3.02 mill/uL (4.70-6.10)
[2018-08-16 02:56] LABS: Anion Gap 10 mmol/L (10-20); BUN (Urea Nitrogen) 22 mg/dL (8.4-25.7); Calc. Creatinine Clearance 125 mL/min (70-130); Carbon Dioxide 27 mmol/L (23-31); Chloride 110 mmol/L (98-107); Estimated GFR-MDRD Greater than 90; Glucose 131 mg/dL (83-110); Potassium 4.2 mmol/L (3.5-5.1); Sodium 143 mmol/L (136-145)
[2018-08-16] MEDS: fentaNYL Citrate/PF 2,000 MCG in Sodium Chloride 0.9% 60 ML IV SCH ×2 (03:09→20:53)
[2018-08-16] MEDS: Vancomycin HCl 1.5 GM in Sodium Chloride 0.9% 250 ML 250 ML IVPB SCH ×2 (03:16→14:34)
[2018-08-16] MEDS: Ibuprofen 600 MG TAB PO SCH ×3 (06:14→22:45)
[2018-08-16] MEDS: Acetaminophen 325 MG TAB PO SCH (06:14)
[2018-08-16 07:00] LABS: Actual Bicarbonate (HCO3a) 26.5 mEq/L (22-28); Base Excess (BEa) -1.2 mEq/L (-2.0 to +3.0); Carboxyhemoglobin (COHb) 0.9 gm% (0.0-3.0); O2 Tension (PaO2) 69.4 mmHg (> 60.0); Potassium - ABG Lab 4.09 mmol/L (3.70-5.30); pH, Arterial 7.26 (7.35-7.45)
[2018-08-16 07:03] LABS: CO2 Tension 60.1 mmHg (35.0-45.0)
[2018-08-16 07:05] LABS: ALV-art Gradient 140.675 (0-20)
[2018-08-16 07:06] LABS: Puncture Site A-LINE
[2018-08-16] MEDS ORDERED: Ketorolac Tromethamine 30 MG/ML VIAL IVP SCH (08:30)
[2018-08-16] MEDS: Gabapentin 100 MG CAP PO SCH ×3 (08:37→20:45)
[2018-08-16] MEDS: Aspirin 325 MG TAB PO SCH (08:37)
[2018-08-16] MEDS: Atorvastatin Calcium 10 MG TAB PO SCH (08:37)
[2018-08-16] MEDS: DULoxetine 60 MG CAP PO SCH (08:37)
[2018-08-16] MEDS: Famotidine 20 MG TAB PO SCH ×2 (08:37→20:45)
[2018-08-16] MEDS: Polyethylene Glycol 3350 17 GM Packet PO SCH (08:38)
[2018-08-16] MEDS: Senokot S 8.6-50 MG TAB PO SCH ×2 (08:38→20:44)
[2018-08-16] MEDS: Diabetic Tussin 200 MG/10 ML UDCUP PO SCH ×3 (08:38→22:45)
[2018-08-16] MEDS: Ferrous Sulfate 325 MG TAB PO SCH (08:38)
[2018-08-16] MEDS: Insulin Glargine 10 UNITS in Pre-Filled Syringe 1 EACH SC SCH ×2 (08:41→21:17)
--- NOTE | 2018-08-16 09:43 | RAD ---
PORTABLE CHEST 1 VIEW: Date: 08/16/18 Time: 0540 hours HISTORY: Respiratory failure. FINDINGS/IMPRESSION: No significant interval change is seen since the previous day's exam. POS: LAKESHA
--- NOTE | 2018-08-16 10:57 | PDOC.PN ---
- Subjective Encounter Start Date: 08/16/18 Encounter Start Time: 10:56 Awakens. Some discomfort right chest. Denies abdominal pain. Tolerating intubation well. - Objective Vital Signs & Weight: Vital Signs (12 hours) Temp Pulse Resp BP Pulse Ox 08/16/18 10:31 94 08/16/18 10:00 10 L 08/16/18 08:00 11 L 08/16/18 07:48 80 124/71 08/16/18 07:45 80 11 L 99 08/16/18 07:36 98 08/16/18 06:00 11 L 08/16/18 04:00 98.4 F 11 L 08/16/18 02:04 79 08/16/18 02:03 78 11 L 100 08/16/18 02:00 11 L 08/16/18 00:00 98.1 F 13 Weight Admit Weight 196 lb Weight 220 lb 7.396 oz Most Recent Monitor Data Heart Rate from ECG 92 NIBP 113/67 NIBP BP-Mean 82 Respiration from ECG 2 SpO2 95 I&O: 08/15/18 08/16/18 08/17/18 06:59 06:59 06:59 Intake Total 3654 3760 4200 Output Total 1740 2347 140 Balance 1914 1413 4060 Result Diagrams: 08/16/18 02:15 08/16/18 02:15 Additional Labs: Accuchecks 08/16/18 08/15/18 08/15/18 03:41 23:47 19:53 POC Glucose 111 H 134 H 119 H 08/15/18 13:04 POC Glucose 118 H Phys Exam - Physical Examination Constitutional: NAD Intubated, sedated but awakens. Respiratory: no wheezing, no rales Diffuse rhonchi, likely tracheal secretions. Diminshed BS on right. Cardiovascular: RRR, no significant murmur Gastrointestinal: soft, non-tender, no distention, positive bowel sounds Musculoskeletal: no edema Dx/Plan (1) Hemothorax Code(s): J94.2 - HEMOTHORAX Status: Acute (2) Pulmonary contusion Code(s): S27.329A - CONTUSION OF LUNG, UNSPECIFIED, INITIAL ENCOUNTER Status: Acute (3) Ribs, multiple fractures Code(s): S22.49XA - MULTIPLE FRACTURES OF RIBS, UNSP SIDE, INIT FOR CLOS FX Status: Acute (4) DM2 (diabetes mellitus, type 2) Status: Chronic Qualifiers: Diabetes mellitus long-term insulin use: without long-term use (5) HTN (hypertension) Code(s): I10 - ESSENTIAL (PRIMARY) HYPERTENSION Status: Chronic - Plan * Still on broad spectrum abx. Pulm to assess vent status and weanability. * Continue SSI and accuchecks. * Continue chest tube s/p VATS. CVS following. * Discussed with patient's daughter at bedside.
[2018-08-16] MEDS: Acetaminophen 1,000 MG in Premix Bag 1 BAG IVPB SCH ×2 (11:28→17:40)
[2018-08-16] MEDS: Ketorolac Tromethamine 30 MG/ML VIAL IVP SCH ×2 (11:29→17:40)
[2018-08-16] MEDS ORDERED: Furosemide 40 MG/4 ML VIAL SLOW IVP SCH (13:00)
--- NOTE | 2018-08-16 13:27 | PRG ---
DATE OF SERVICE: 08/16/2018 SERVICE: Pulmonary Medicine. SUBJECTIVE: The patient is doing fine from respiratory standpoint. He is breathing comfortably. He is on minimal sedation. With that, he breathes comfortably on mechanical ventilation. He denies any discomfort at this point. Nursing reports no overnight events. PHYSICAL EXAMINATION: VITAL SIGNS: Afebrile. Pulse 94, blood pressure 140/80, respiratory rate 11, saturation 97% on 30% FiO2 and a PEEP of 5. GENERAL: The patient is intubated and sedated. HEENT: Normocephalic and atraumatic. Sclerae white. Conjunctivae pink. Oral mucosa is moist without lesions. LUNGS: There is excellent air entry with no prolonged expiratory phase. Extensive crackles and rhonchi are present. No wheezing. HEART: Normal rate, regular. ABDOMEN: Soft, nontender, and nondistended. Bowel sounds are positive. MUSCULOSKELETAL: No cyanosis or clubbing. There is pitting in the sacrum. No pitting in the bilateral upper or lower extremities. GENITOURINARY: Hernandez catheter in place. NEUROLOGIC: Grossly nonfocal. LABORATORY DATA: WBC 9.0, hemoglobin 9.5 and stable, platelets 201,000. INR 1.3. PH 7.26, pCO2 60, pO2 93. Basic metabolic profile is essentially unremarkable. Chloride is 110, sodium 143. Blood cultures x2, respiratory culture, and urine culture all unremarkable. IMAGING STUDIES: Chest x-ray demonstrates cephalization and left-sided effusion. Endotracheal tube remains in good position. There is a right IJ that terminates in good position. There is an enteric catheter coursing midline below the level of the diaphragm. Thoracostomy tube is present in the right. ASSESSMENT: 1. Acute hypoxic respiratory failure. 2. Traumatic hemothorax, status post thoracostomy tube. 3. Rib fractures, multiple without flail chest. DISCUSSION AND PLAN: The patient is doing fine from a respiratory standpoint. That being said, he is over 12 to 13 L up for this hospitalization. As such, we need to control his volume status before we consider him for extubation. I will minimize sedation through time. We will give him a dose of Lasix today and then a daily dose of Lasix after that. His IV fluids will be interrupted and we will put him on D5 water to prevent hypernatremia. Multiple ventilator adjustments have been made to touch more work of breathing over to the patient. Pulmonary/Critical Care will continue to follow along. CRITICAL CARE TIME: 30 minutes. Job ID: [id number]
[2018-08-16] MEDS: Piperacillin/Tazobactam 3.375 GM in Sodium Chloride 0.9% 100 ML IVPB SCH ×2 (13:42→20:44)
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
[2018-08-16] MEDS: Dextrose 50% Abboject 50 ML SYRINGE SLOW IVP PRN (20:40)
[2018-08-16] MEDS: Dextrose 10% in Water 1,000 ML IV SCH (23:40)
[2018-08-17] MEDS: Acetaminophen 1,000 MG in Premix Bag 1 BAG IVPB SCH ×3 (00:27→11:51)
[2018-08-17] MEDS: Ketorolac Tromethamine 30 MG/ML VIAL IVP SCH ×5 (00:28→23:35)
[2018-08-17] MEDS: Piperacillin/Tazobactam 3.375 GM in Sodium Chloride 0.9% 100 ML IVPB SCH ×4 (02:29→19:58)
[2018-08-17] MEDS: Vancomycin HCl 1.5 GM in Sodium Chloride 0.9% 250 ML 250 ML IVPB SCH ×2 (04:24→15:12)
[2018-08-17 04:41] LABS: Anion Gap 7 mmol/L (10-20); BUN (Urea Nitrogen) 21 mg/dL (8.4-25.7); Calc. Creatinine Clearance 129 mL/min (70-130); Calcium 7.8 mg/dL (7.8-10.44); Carbon Dioxide 30 mmol/L (23-31); Chloride 106 mmol/L (98-107); Estimated GFR-MDRD Greater than 90; Glucose 97 mg/dL (83-110); Magnesium 1.9 mg/dL (1.6-2.6); Potassium 3.3 mmol/L (3.5-5.1); Sodium 140 mmol/L (136-145)
[2018-08-17 04:44] LABS: Phosphorus 1.8 mg/dL (2.3-4.7)
[2018-08-17] MEDS: Furosemide 40 MG/4 ML VIAL SLOW IVP SCH (05:53)
[2018-08-17] MEDS: Ibuprofen 600 MG TAB PO SCH ×3 (05:54→21:27)
[2018-08-17 07:10] LABS: Actual Bicarbonate (HCO3a) 32.3 mEq/L (22-28); Base Excess (BEa) 5.4 mEq/L (-2.0 to +3.0); Calcium, Ionized 1.16 mmol/L (1.12-1.30); Carboxyhemoglobin (COHb) 1.7 gm% (0.0-3.0); Hemoglobin (Hb) 10.2 g/dL (14.0-18.0); Potassium - ABG Lab 3.27 mmol/L (3.70-5.30); pH, Arterial 7.34 (7.35-7.45)
[2018-08-17 07:13] LABS: CO2 Tension 60.7 mmHg (35.0-45.0); O2 Tension (PaO2) 57.7 mmHg (> 60.0); Puncture Site ALINE
[2018-08-17 07:14] LABS: ALV-art Gradient 87.455 (0-20)
--- NOTE | 2018-08-17 08:21 | RAD ---
PORTABLE CHEST 1 VIEW: Date: 08/17/18 Time: 0531 hours HISTORY: Respiratory failure. FINDINGS/IMPRESSION: No significant interval change is seen since the previous day's exam. POS: LAKESHA
[2018-08-17] MEDS: DULoxetine 60 MG CAP PO SCH (08:33)
[2018-08-17] MEDS: Senokot S 8.6-50 MG TAB PO SCH ×2 (08:33→21:28)
[2018-08-17] MEDS: Polyethylene Glycol 3350 17 GM Packet PO SCH (08:33)
[2018-08-17] MEDS: Famotidine 20 MG TAB PO SCH ×2 (08:33→21:28)
[2018-08-17] MEDS: Aspirin 325 MG TAB PO SCH (08:33)
[2018-08-17] MEDS: Insulin Glargine 10 UNITS in Pre-Filled Syringe 1 EACH SC SCH ×2 (08:34→21:27)
[2018-08-17] MEDS: Ferrous Sulfate 325 MG TAB PO SCH (08:34)
[2018-08-17] MEDS: Gabapentin 100 MG CAP PO SCH ×3 (08:34→21:27)
[2018-08-17] MEDS: Atorvastatin Calcium 10 MG TAB PO SCH (08:40)
[2018-08-17] MEDS: Diabetic Tussin 200 MG/10 ML UDCUP PO SCH ×3 (08:40→21:27)
--- NOTE | 2018-08-17 11:37 | PDOC.PN ---
- Subjective Encounter Start Date: 08/17/18 Encounter Start Time: 10:30 -: non-verbal - Objective MAR Reviewed: Yes Vital Signs & Weight: Vital Signs (12 hours) Temp Pulse Resp BP Pulse Ox 08/17/18 10:00 8 L 08/17/18 09:55 92 8 L 90 L 08/17/18 09:50 92 143/55 H 08/17/18 08:00 13 08/17/18 07:06 94 L 08/17/18 07:00 98.3 F 08/17/18 06:35 94 106/43 L 08/17/18 06:33 94 13 94 L 08/17/18 06:00 15 08/17/18 04:00 98.3 F 08/17/18 02:22 88 101/67 08/17/18 02:00 14 08/17/18 00:00 98.1 F 16 Weight Admit Weight 196 lb Weight 224 lb 6.889 oz Most Recent Monitor Data Heart Rate from ECG 97 NIBP 149/80 NIBP BP-Mean 103 Respiration from ECG 10 SpO2 93 I&O: 08/16/18 08/17/18 08/18/18 06:59 06:59 06:59 Intake Total 3760 54821 250 Output Total 2347 3140 1050 Balance 1413 7011 -800 Result Diagrams: 08/16/18 02:15 08/17/18 04:10 Additional Labs: Accuchecks 08/17/18 08/17/18 08/17/18 04:20 02:51 00:06 POC Glucose 84 66 L 60 L 08/16/18 08/16/18 08/16/18 21:21 20:37 15:43 POC Glucose 113 H 50 L* 72 08/16/18 12:30 POC Glucose 79 Phys Exam - Physical Examination Intubated, sedated. Neck: no JVD Respiratory: no wheezing, no rales, no rhonchi, clear to auscultation bilateral Cardiovascular: RRR, no significant murmur, no rub Gastrointestinal: soft, non-tender, no distention Musculoskeletal: no edema Skin: normal turgor Dx/Plan (1) Acute respiratory failure with hypoxia Code(s): J96.01 - ACUTE RESPIRATORY FAILURE WITH HYPOXIA Status: Acute (2) Hemothorax Code(s): J94.2 - HEMOTHORAX Status: Acute Comment: Status post VATS, chest tube. (3) Pulmonary contusion Code(s): S27.329A - CONTUSION OF LUNG, UNSPECIFIED, INITIAL ENCOUNTER Status: Acute (4) Ribs, multiple fractures Code(s): S22.49XA - MULTIPLE FRACTURES OF RIBS, UNSP SIDE, INIT FOR CLOS FX Status: Acute (5) DM2 (diabetes mellitus, type 2) Status: Chronic Qualifiers: Diabetes mellitus intermediate insulin use: without intermediate use (6) HTN (hypertension) Code(s): I10 - ESSENTIAL (PRIMARY) HYPERTENSION Status: Chronic (7) Fall Code(s): W19.XXXA - UNSPECIFIED FALL, INITIAL ENCOUNTER Status: Acute Comment: Possible syncope - Plan * Diuresing to prepare for weaning. * CVS following chest tube. * Blood sugars doing very well.
--- NOTE | 2018-08-17 13:56 | PRG ---
DATE OF SERVICE: 08/17/2018 SUBJECTIVE: The patient remains in the critical care unit on mechanical ventilatory support. He had no reported issues overnight. The patient remains on full mechanical ventilatory support when sedation has been light and he is able to follow simple commands. Chest tube output is reported as 275 mL. OBJECTIVE: GENERAL: The patient appears comfortable in bed. He does have his eyes open and will give me a thumbs up, albeit not consistently during my exam this morning. LUNGS: Scattered wheezes bilaterally markedly more on the right side. CHEST: Chest tubes appear to be functioning. There does not appear to be an air leak. HEART: Regular rate and rhythm. ABDOMEN: Soft and nondistended with hypoactive bowel sounds. EXTREMITIES: Lower extremities show 1 to 2+ pitting edema. LABORATORY FINDINGS: Sodium 140, potassium 3.3, chloride 106, CO2 of 30, BUN 21, creatinine 0.59, glucose 97, phosphorus 1.8, magnesium 1.9. Chest radiograph shows no significant interval change from prior exam. ASSESSMENT AND PLAN: 1. Status post fall. 2. Right multiple rib fractures with flail segment. 3. Status post video-assisted thoracoscopy surgical procedure. 4. Respiratory failure requiring mechanical ventilatory support. PLAN: Plan will be to continue supportive care. Repeat labs in the morning. Discuss weaning trial with Pulmonary. Per discussion with the nurse, they said he was going to be diuresed today. He would be volume up on his I's and O's. The patient was evaluated with Dr. Simons this morning during rounds. Job ID: [id number]
[2018-08-17] MEDS ORDERED: Potassium Phosphate 30 MMOL in Sodium Chloride 0.9% 250 ML 250 ML IVPB SCH (14:00)
[2018-08-17 14:26] LABS: Vancomycin, Trough 19.2 ug/mL
--- NOTE | 2018-08-17 17:19 | PRG ---
DATE OF SERVICE: 08/17/2018 SUBJECTIVE: Mr. Rojas is still intermittently combative and pulls at things. OBJECTIVE: VITAL SIGNS: He is afebrile. Blood pressure 134/77, respiratory rate is 11, oximetry is 95%. Turning down to a rate of 4, but his minute volume after an hour or so dropped to 4 L a minute. I will set him at a rate of 8. LUNGS: Clear. HEART: Regular rhythm. ABDOMEN: Soft. EXTREMITIES: Without asymmetry. LABORATORY DATA: Sodium 140, potassium 3.3, chloride 106, bicarbonate 30, BUN 21, creatinine 0.59. Intake and output is not accurate. It is reported that he had 10,151 mL in. It is reported that he had 6090 mL of lactated Ringer's. There is no way that he had 6 L of fluid yesterday. With that being said, he is responding to diuretics. Hopefully, we will see improvement in his gas exchange in radiograph. His pH 7.34, CO2 of 60, PO2 of 57 today, mostly at the rate of 13. I have asked the nurses to decrease his sedation slightly. He might benefit from Precedex, hopefully to facilitate lowering fentanyl. He is not a candidate for weaning and extubation today, but hopefully will be sometime in the near future. Critical care time, 30 minutes. Job ID: [id number]
[2018-08-17] MEDS: Dextrose 10% in Water 1,000 ML IV SCH (21:28)
[2018-08-18] MEDS: Piperacillin/Tazobactam 3.375 GM in Sodium Chloride 0.9% 100 ML IVPB SCH ×4 (01:56→19:53)
[2018-08-18 02:09] LABS: #Eosinphils 0.5 thou/uL (0.0-0.7); #Lymphocytes 1.1 thou/uL (1.20-3.40); #Monocytes 0.6 thou/uL (0.11-0.59); %Basophils 0.1 % (0.0-1.0); %Lymphocytes 8.4 % (21.0-51.0); %Monocytes 4.4 % (0.0-10.0); %Neutrophils 83.1 % (42.0-75.0); Hemoglobin 9.2 g/dL (14.0-18.0); Mean Corpuscular HGB CONC 32.4 g/dL (32.0-36.0); Mean Corpuscular Hemoglobin 31.2 pg (27.0-31.0); Mean Corpuscular Volume 96.5 fL (78.0-98.0); Mean Platelet Volume 6.5 fL (7.4-10.4); Platelet Count 207 thou/uL (130-400); RBC Distribution Width 13.1 % (11.5-14.5); Red Blood Cell (RBC) Count 2.95 mill/uL (4.70-6.10); White Blood Cell (WBC) Count 13.2 thou/uL (4.8-10.8)
[2018-08-18 02:40] LABS: Anion Gap 10 mmol/L (10-20); BUN (Urea Nitrogen) 18 mg/dL (8.4-25.7); Calc. Creatinine Clearance 132 mL/min (70-130); Calcium 7.9 mg/dL (7.8-10.44); Carbon Dioxide 32 mmol/L (23-31); Chloride 101 mmol/L (98-107); Estimated GFR-MDRD Greater than 90; Glucose 183 mg/dL (83-110); Magnesium 1.8 mg/dL (1.6-2.6); Potassium 3.7 mmol/L (3.5-5.1); Sodium 139 mmol/L (136-145)
[2018-08-18] MEDS: Vancomycin HCl 1.5 GM in Sodium Chloride 0.9% 250 ML 250 ML IVPB SCH ×2 (02:57→14:55)
[2018-08-18 03:03] LABS: Phosphorus 2.8 mg/dL (2.3-4.7)
[2018-08-18] MEDS: Insulin Regular 300 UNITS/3 ML VIAL SC PRN (04:42)
[2018-08-18] MEDS: Ibuprofen 600 MG TAB PO SCH ×3 (05:44→21:37)
[2018-08-18] MEDS: Furosemide 40 MG/4 ML VIAL SLOW IVP SCH (05:44)
[2018-08-18] MEDS: Ketorolac Tromethamine 30 MG/ML VIAL IVP SCH ×5 (05:45→23:13)
[2018-08-18] MEDS: Haloperidol Lactate 5 MG/ML VIAL IM PRN (06:10)
[2018-08-18] MEDS ORDERED: Diltiazem HCl 125 MG, Admixture Fee 1 EACH in Sodium Chloride 0.9% 100 ML IVPB SCH (08:00)
[2018-08-18] MEDS: Propofol 1,000 MG/100 ML VIAL IV PRN ×3 (08:03→21:37)
[2018-08-18] MEDS: Insulin Glargine 10 UNITS in Pre-Filled Syringe 1 EACH SC SCH ×2 (08:21→20:14)
[2018-08-18] MEDS: Ferrous Sulfate 325 MG TAB PO SCH (08:22)
[2018-08-18] MEDS: Aspirin 325 MG TAB PO SCH (08:22)
[2018-08-18] MEDS: Polyethylene Glycol 3350 17 GM Packet PO SCH (08:24)
[2018-08-18] MEDS: DULoxetine 60 MG CAP PO SCH (08:24)
[2018-08-18] MEDS: Famotidine 20 MG TAB PO SCH ×2 (08:24→20:13)
[2018-08-18] MEDS: Senokot S 8.6-50 MG TAB PO SCH ×2 (08:25→20:12)
[2018-08-18] MEDS: Diabetic Tussin 200 MG/10 ML UDCUP PO SCH ×3 (08:25→20:13)
[2018-08-18] MEDS: Gabapentin 100 MG CAP PO SCH ×3 (08:27→20:13)
[2018-08-18] MEDS ORDERED: Ketorolac Tromethamine 30 MG/ML VIAL IVP SCH (08:30)
[2018-08-18] MEDS: Acetaminophen 1,000 MG in Premix Bag 1 BAG IVPB SCH ×4 (08:30→23:12)
[2018-08-18] MEDS ORDERED: Sodium Chloride 0.9% 1,000 ML IV SCH (08:30)
[2018-08-18] MEDS ORDERED: Acetaminophen 1,000 MG in Premix Bag 1 BAG IVPB SCH (08:30)
--- NOTE | 2018-08-18 08:36 | RAD ---
EXAM: PORTABLE SEMI UPRIGHT CHEST ONE VIEW: History: 87-year-old male with history of respiratory insufficiency. FINDINGS: Monitor leads overlie the chest. NG tube, endotracheal tube, and right central line in place. Right c hest tube in place. No convincing right sided pneumothorax. Alveolar parenchymal changes throughout t he right lung, particularly the perihilar regions, as well as some parenchymal changes in the left ba se. IMPRESSION: Stable appearing chest. Continued short term follow up. POS: [facility]
[2018-08-18] MEDS: Atorvastatin Calcium 10 MG TAB PO SCH (08:37)
[2018-08-18] MEDS ORDERED: Magnesium Sulfate 2 GM in Sodium Chloride 0.9% 100 ML IVPB SCH (13:15)
[2018-08-18] MEDS ORDERED: Magnesium 2 GM/50 ML 2 GM in Premix Bag 1 BAG IVPB SCH (13:30)
[2018-08-18] MEDS ORDERED: Furosemide 40 MG/4 ML VIAL SLOW IVP SCH (14:00)
--- NOTE | 2018-08-18 14:08 | PRG ---
DATE OF SERVICE: 08/18/2018 SERVICE: Pulmonary Medicine. INTERVAL HISTORY: The patient is doing fine from respiratory standpoint. Otherwise, there has been no interval change to his condition. He cannot provide additional elements of the history. Nursing reports no overnight events. OBJECTIVE: VITAL SIGNS: Afebrile, pulse 85, blood pressure 114/63, respirations 15, saturation 93% on 37% FiO2 and PEEP of 5. GENERAL: The patient is awake and alert. He requires some sedation in order to stay comfortable. With that, he will fall back asleep within 3 seconds with no stimulation. HEENT: Normocephalic and atraumatic. Sclerae are white. Conjunctivae pink. Oral mucosa is moist without lesions. LUNGS: Decreased air entry on the right. Excellent air entry on the left. No prolonged expiratory phase or wheezing are appreciated. HEART: Normal rate and regular. ABDOMEN: Soft, nontender, and nondistended. Bowel sounds are positive. MUSCULOSKELETAL: No cyanosis or clubbing. There is diffuse pitting in the bilateral lower extremities. NEUROLOGIC: Grossly nonfocal. He is following some simple commands like opening his eyes and closing his eyes, putting a thumb up on the left and right hand on command. LABORATORY DATA: WBC 13.2, hemoglobin 9.2, platelets 207,000. Basic metabolic profile is essentially unremarkable except for a bicarb of 32, which is gently up-trending. Phosphorus 2.8. Respiratory culture is negative. Blood cultures x2 and urine culture also unremarkable. IMAGING: Chest x-ray demonstrates stable pleural parenchymal disease on the right. Thoracostomy tubes are in place. ASSESSMENT: 1. Acute hypoxic respiratory failure, improving. 2. Traumatic hemothorax, status post thoracostomy drains. 3. Rib fractures, multiple without flail chest. 4. Healthcare-associated pneumonia, possible. DISCUSSION AND PLAN: We will continue supportive care including empiric antibiotics. His barrier to extubation at this point is his volume status. I will give him an additional dose of Lasix this afternoon and tomorrow morning. He went into a tachyarrhythmia overnight. We put him on a diltiazem drip, which will be converted over to p.o. route. I will replace the potassium and magnesium today , and I would discontinue his IV fluids altogether. Pulmonary Critical Care will continue to follow along while he remains here. CRITICAL CARE TIME: 30 minutes. Job ID: [id number] [facility]
--- NOTE | 2018-08-18 15:03 | PRG ---
DATE OF SERVICE: 08/18/2018 SUBJECTIVE: The patient remains on the critical care unit with full ventilatory support. He reportedly had a tachyarrhythmia this morning, that became rate controlled with diltiazem. The patient currently is on diltiazem drip and appears to have stabilized. The patient, of note, had his sedation lightened also this morning, so that may have contributed somewhat to it. Otherwise, there were no events overnight. OBJECTIVE: VITAL SIGNS: Temperature is 98.9, heart rate 105, blood pressure 119/53, respirations 15, and oxygen saturation is 92%. GENERAL: The patient appears comfortable in bed. HEENT: His eyes are opened, but is not following commands. LUNGS: Scattered rhonchi, right greater than left. HEART: Regular rate and rhythm. ABDOMEN: Soft, flat, and nontender with active bowel sounds. EXTREMITIES: Capillary refill is less than 3 seconds. Pulses are 2+. Both lower extremities show about 2+ pitting edema. LABORATORY FINDINGS: White blood cell count 13.2, hemoglobin 9.2, hematocrit 28.5, and platelets 207. Sodium 139, potassium 3.7, chloride 101, CO2 of 32, BUN 18, creatinine 0.59, glucose 183, magnesium 1.8, phosphorus 2.8. RADIOGRAPHS: AP chest shows stable appearing chest. ASSESSMENT: 1. Status post fall. 2. Right multiple rib fractures with flail segment. 3. Status post video-assisted thoracoscopy, surgical procedure. 4. Respiratory failure requiring mechanical ventilatory support. 5. Possible pneumonia. PLAN: Plan will be to continue supportive care. Ventilatory support per Pulmonary Critical Care. They have also replaced his electrolytes this morning and we will continue pain management and diuresing the patient. Job ID: [id number]
--- NOTE | 2018-08-18 16:16 | PDOC.PN ---
- Subjective Encounter Start Date: 08/18/18 Encounter Start Time: 11:15 Subjective: pt intubated family at bedside - Objective Vital Signs & Weight: Vital Signs (12 hours) Temp Pulse Resp BP Pulse Ox 08/18/18 15:55 98.0 F 12 08/18/18 15:36 80 93/54 L 08/18/18 15:35 81 12 90 L 08/18/18 14:00 11 L 08/18/18 12:51 98.4 F 08/18/18 12:00 98.4 F 12 08/18/18 10:36 82 120/54 L 08/18/18 10:34 81 14 93 L 08/18/18 10:00 11 L 08/18/18 08:00 98.9 F 14 95 08/18/18 06:55 99.3 F 08/18/18 06:27 105 H 197/77 H 08/18/18 06:25 109 H 25 H 95 08/18/18 06:00 14 Weight Admit Weight 196 lb Weight 220 lb 14.451 oz Most Recent Monitor Data Heart Rate from ECG 79 NIBP 98/64 NIBP BP-Mean 75 Respiration from ECG 14 SpO2 92 I&O: 08/17/18 08/18/18 08/19/18 06:59 06:59 06:59 Intake Total 24304 3959 1479.5 Output Total 3140 3230 4070 Balance 7011 729 -2590.5 Result Diagrams: 08/18/18 02:00 08/18/18 02:00 Additional Labs: Accuchecks 08/18/18 08/18/18 08/18/18 15:29 12:10 08:20 POC Glucose 130 H 105 123 H 08/18/18 08/17/18 08/17/18 04:37 23:44 20:04 POC Glucose 172 H 175 H 136 H Phys Exam - Physical Examination Neck: no nodes, no JVD, supple, full ROM Respiratory: no wheezing, no rales, no rhonchi, wheezing present, clear to auscultation bilateral Cardiovascular: RRR, no significant murmur, no rub, gallop, irregular Gastrointestinal: soft, non-tender, no distention, positive bowel sounds Musculoskeletal: no edema, pulses present, edema present Dx/Plan (1) Acute respiratory failure with hypoxia Code(s): J96.01 - ACUTE RESPIRATORY FAILURE WITH HYPOXIA Status: Acute (2) Atrial fibrillation with RVR Code(s): I48.91 - UNSPECIFIED ATRIAL FIBRILLATION Status: Acute (3) Hemothorax Code(s): J94.2 - HEMOTHORAX Status: Acute Comment: Status post VATS, chest tube. 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 Review of Systems - Review of Systems Other: unable to obtain - Medications/Allergies Allergies/Adverse Reactions: Allergies Allergy/AdvReac Type Severity Reaction Status Date / Time No Known Drug Allergies Allergy Verified 10/12/13 01:51 Medications: Current Medications Albuterol/Ipratropium (Duoneb) 3 ml NEB [id number] [facility] Last Admin: 08/18/18 15:35 Dose: 3 ml Aspirin (Aspirin) 325 mg PO DAILY [facility] Last Admin: 08/18/18 08:22 Dose: 325 mg Atorvastatin Calcium (Lipitor) 10 mg PO DAILY [facility] Last Admin: 08/18/18 08:37 Dose: 10 mg Bisacodyl (Dulcolax) 5 mg PO DAILYPRN [facility] Dextrose/Water (Dextrose 50%) 25 gm SLOW IVP PRN PRN PRN Reason: Hypoglycemia Last Admin: 08/16/18 20:40 Dose: 25 gm Diltiazem HCl (Cardizem) 30 mg PO Q6H [facility] Last Admin: 08/18/18 13:22 Dose: 30 mg Duloxetine HCl (Cymbalta) 60 mg PO DAILY [facility] Last Admin: 08/18/18 08:24 Dose: 60 mg Famotidine (Pepcid) 20 mg PO BID [facility] Last Admin: 08/18/18 08:24 Dose: 20 mg Ferrous Sulfate (Feosol) 325 mg PO DAILY [facility] Last Admin: 08/18/18 08:22 Dose: 325 mg Furosemide (Lasix) 40 mg SLOW IVP 0600 [facility] Last Admin: 08/18/18 05:44 Dose: 40 mg Gabapentin (Neurontin) 100 mg PO TID [facility] Last Admin: 08/18/18 14:55 Dose: 100 mg Glucagon (Glucagon) 1 mg IM PRN PRN PRN Reason: Hypoglycemia Guaifenesin (Robitussin Sf) 200 mg PO TID [facility] Last Admin: 08/18/18 14:55 Dose: 200 mg Haloperidol Lactate (Haldol) 5 mg IM Q4H PRN PRN Reason: Agitation Last Admin: 08/18/18 06:10 Dose: 5 mg Dextrose/Water (D5w) 1,000 mls @ 0 mls/hr IV .Q0M PRN PRN Reason: Hypoglycemia Fentanyl Citrate 2,000 mcg/ (Sodium Chloride) 100 mls @ 0 mls/hr IV INF [facility]; Protocol Stop: 09/11/18 21:59 Last Admin: 08/16/18 20:53 Dose: 100 mls Fentanyl Citrate (Fentanyl Bolus) 250 mls @ 0 mls/hr IVPB PRN PRN PRN Reason: Breakthrough pain/agitation Stop: 09/11/18 21:59 Insulin Glargine 10 units/ (Miscellaneous Medication) 0.1 mls @ 0 mls/hr SC HS [facility] Last Admin: 08/17/18 21:27 Dose: 0.1 mls Insulin Glargine 10 units/ (Miscellaneous Medication) 0.1 mls @ 0 mls/hr SC QAM [facility] Last Admin: 08/18/18 08:21 Dose: 0.1 mls Vancomycin HCl 1.5 gm/ Sodium (Chloride) 250 mls @ 166.667 mls/hr IVPB 0300, 1500 [facility] Last Admin: 08/18/18 14:55 Dose: 250 mls Piperacillin Sod/Tazobactam (Sod 3.375 gm/ Sodium Chloride) 100 mls @ 200 mls/ hr IVPB 0200,0800,1400,2000 [facility] Stop: 08/18/18 20:01 Last Admin: 08/18/18 13:01 Dose: 100 mls Acetaminophen 1,000 mg/ Device 100 mls @ 400 mls/hr IVPB Q6HR [facility] Stop: 08/19/18 12:01 Last Admin: 08/18/18 11:21 Dose: 100 mls Dexmedetomidine HCl 400 mcg/ (Sodium Chloride) 100 mls @ 0 mls/hr IVPB INF [facility] ; Protocol Last Admin: 08/18/18 10:38 Dose: 100 mls Ibuprofen (Motrin) 600 mg PO Q8HR [facility] Last Admin: 08/18/18 13:01 Dose: 600 mg Insulin Human Regular (Humulin R) 0 units SC .MODERATE SLIDING SC PRN PRN Reason: Moderate Correctional Scale Last Admin: 08/18/18 04:42 Dose: 2 unit Ketorolac Tromethamine (Toradol) 15 mg IVP Q6HR [facility] Stop: 08/21/18 12:01 Last Admin: 08/18/18 11:21 Dose: 15 mg Methylprednisolone Sodium Succinate (Solu-Medrol) 40 mg IVP DAILY [facility] Last Admin: 08/18/18 08:23 Dose: 40 mg Miscellaneous Medication (Pharmacy To Dose) 0 each IVPB DAILYPRN PRN PRN Reason: LABS Morphine Sulfate (Morphine) 2 mg SLOW IVP Q4H PRN PRN Reason: Severe Pain (7-10) Discontinue Previous Narcotic Pain Medications And Benzodiazepines 1 each FS .ONE [facility] Stop: 09/11/18 21:59 Polyethylene Glycol (Miralax) 17 gm PO DAILY [facility] Last Admin: 08/18/18 08:24 Dose: 17 gm Propofol (Diprivan) 1,000 mg IV INF PRN; Protocol PRN Reason: TO ACHIEVE GOAL RASS Stop: 09/11/18 21:59 Last Admin: 08/18/18 13:36 Dose: 1,000 mg Propofol (Diprivan Bolus) 20 mg IV Q5MIN PRN PRN Reason: BREAKTHROUGH AGITATION Stop: 09/11/18 21:59 Quetiapine Fumarate (Seroquel) 50 mg PO HS [facility] Last Admin: 08/17/18 21:28 Dose: 50 mg Senna/Docusate Sodium (Senokot S) 2 tab PO BID [facility] Last Admin: 08/18/18 08:25 Dose: 2 tab Sodium Chloride (Flush - Normal Saline) 10 ml IVF PRN PRN PRN Reason: Saline Flush
[2018-08-19] MEDS: Propofol 1,000 MG/100 ML VIAL IV PRN (02:37)
[2018-08-19] MEDS: Vancomycin HCl 1.5 GM in Sodium Chloride 0.9% 250 ML 250 ML IVPB SCH ×2 (02:37→15:34)
[2018-08-19 04:53] LABS: Anion Gap 10 mmol/L (10-20); BUN (Urea Nitrogen) 14 mg/dL (8.4-25.7); Calc. Creatinine Clearance 120 mL/min (70-130); Carbon Dioxide 34 mmol/L (23-31); Chloride 99 mmol/L (98-107); Estimated GFR-MDRD Greater than 90; Glucose 111 mg/dL (83-110); Potassium 3.2 mmol/L (3.5-5.1); Sodium 140 mmol/L (136-145)
[2018-08-19 05:11] LABS: Phosphorus 2.5 mg/dL (2.3-4.7)
[2018-08-19] MEDS: Acetaminophen 1,000 MG in Premix Bag 1 BAG IVPB SCH ×2 (05:15→11:33)
[2018-08-19] MEDS: Ibuprofen 600 MG TAB PO SCH ×3 (05:15→21:53)
[2018-08-19] MEDS: Ketorolac Tromethamine 30 MG/ML VIAL IVP SCH ×2 (05:15→11:35)
[2018-08-19] MEDS: Furosemide 40 MG/4 ML VIAL SLOW IVP SCH (05:15)
--- NOTE | 2018-08-19 06:16 | EKG ---
Test Reason : Blood Pressure : / mmHG Vent. Rate : 103 BPM Atrial Rate : 103 BPM P-R Int : 188 ms QRS Dur : 092 ms QT Int : 336 ms P-R-T Axes : 058 062 216 degrees QTc Int : 440 ms Sinus tachycardia Nonspecific ST and T wave abnormality Abnormal ECG When compared with ECG of 12-AUG-2018 21:19, Sinus rhythm has replaced Atrial fibrillation QRS duration has increased Criteria for Inferior infarct are no longer Present ST no longer depressed in Lateral leads Nonspecific T wave abnormality now evident in Inferior leads T wave inversion no longer evident in Anterolateral leads Confirmed by DC HUMMEL [id number] on 08/19/2018 6:16:27 AM Referred By: Confirmed By:DC HUMMEL
[2018-08-19] MEDS ORDERED: Potassium Chloride 10 MEQ in Premix Bag 1 BAG IVPB SCH (07:45)
[2018-08-19] MEDS ORDERED: Potassium Chloride 20 MEQ TAB PO SCH (08:00)
--- NOTE | 2018-08-19 08:56 | RAD ---
CHEST 1 VIEW: HISTORY: Ventilated patient. COMPARISON: Radiograph from prior day. FINDINGS: Multifocal right-sided airspace opacities are similar. Multifocal right-sided rib fractures. Right thoracostomy tube is similar with side port not seen and may be at the level of the ribs. This is no t definitively within the thoracic cavity. Right IJ central venous catheter is similar. Endotrachea l tube tip in good position. Enteric tube tip likely in the gastric fundus. Layering right effusion. Dense right hemithorax airspace opacities. IMPRESSION: Unchanged appearance of the chest. POS: [facility]
[2018-08-19] MEDS: Insulin Glargine 10 UNITS in Pre-Filled Syringe 1 EACH SC SCH ×2 (09:19→21:53)
[2018-08-19] MEDS: Polyethylene Glycol 3350 17 GM Packet PO SCH (09:30)
[2018-08-19] MEDS: Senokot S 8.6-50 MG TAB PO SCH ×2 (09:31→20:34)
[2018-08-19] MEDS: Aspirin 325 MG TAB PO SCH ×2 (09:44→11:00)
[2018-08-19] MEDS: DULoxetine 60 MG CAP PO SCH ×2 (09:44→11:08)
[2018-08-19] MEDS: Gabapentin 100 MG CAP PO SCH ×4 (09:44→20:34)
[2018-08-19] MEDS: Famotidine 20 MG TAB PO SCH ×3 (09:44→20:33)
[2018-08-19] MEDS: Ferrous Sulfate 325 MG TAB PO SCH ×2 (09:44→11:09)
[2018-08-19] MEDS: Diabetic Tussin 200 MG/10 ML UDCUP PO SCH ×4 (09:45→20:34)
[2018-08-19] MEDS: Atorvastatin Calcium 10 MG TAB PO SCH (11:08)
[2018-08-19] MEDS: Potassium Chloride 20 MEQ in Premix Bag 1 BAG IVPB SCH ×3 (11:34→15:34)
--- NOTE | 2018-08-19 12:08 | PDOC.PN ---
- Subjective Encounter Start Date: 08/19/18 Encounter Start Time: 10:30 Subjective: pt exubated doing well on bipap - Objective Vital Signs & Weight: Vital Signs (12 hours) Temp Pulse Resp BP Pulse Ox 08/19/18 10:41 118 H 08/19/18 10:26 102 H 21 H 94 L 08/19/18 08:00 17 08/19/18 07:00 98.0 F 08/19/18 06:19 92 118/61 08/19/18 06:16 76 13 99 08/19/18 06:00 13 08/19/18 04:00 98.1 F 14 08/19/18 02:08 54 L 91/49 L 08/19/18 02:00 14 Weight Admit Weight 196 lb Weight 212 lb 1.355 oz Most Recent Monitor Data Heart Rate from ECG 100 NIBP 143/97 NIBP BP-Mean 112 Respiration from ECG 21 SpO2 95 I&O: 08/18/18 08/19/18 08/20/18 06:59 06:59 06:59 Intake Total 3959 5387.5 200 Output Total 3230 7745 1570 Balance 729 -2357.5 -1370 Result Diagrams: 08/18/18 02:00 08/19/18 04:23 Additional Labs: Accuchecks 08/19/18 08/19/18 08/19/18 08:28 04:11 00:14 POC Glucose 104 110 114 H 08/18/18 08/18/18 08/18/18 19:52 15:29 12:10 POC Glucose 140 H 130 H 105 Phys Exam - Physical Examination mild rhonchi all over Cardiovascular: RRR, no significant murmur, no rub, gallop, irregular Gastrointestinal: soft, non-tender, no distention, positive bowel sounds Dx/Plan (1) Acute respiratory failure with hypoxia Code(s): J96.01 - ACUTE RESPIRATORY FAILURE WITH HYPOXIA Status: Acute (2) Atrial fibrillation with RVR Code(s): I48.91 - UNSPECIFIED ATRIAL FIBRILLATION Status: Acute (3) Hemothorax Code(s): J94.2 - HEMOTHORAX Status: Acute Comment: Status post VATS, chest tube. 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 -: will replace K * . Review of Systems - Review of Systems Respiratory: negative: Cough, Dry, Shortness of Breath, Hemoptysis, SOB with Excertion, Pleuritic Pain, Sputum, Wheezing Cardiovascular: negative: chest pain, palpitations, orthopnea, paroxysmal nocturnal dyspnea, edema, light headedness, other Gastrointestinal: negative: Nausea, Vomiting, Abdominal Pain, Diarrhea, Constipation, Melena, Hematochezia, Other - Medications/Allergies Allergies/Adverse Reactions: Allergies Allergy/AdvReac Type Severity Reaction Status Date / Time No Known Drug Allergies Allergy Verified 10/12/13 01:51 Medications: Current Medications Albuterol/Ipratropium (Duoneb) 3 ml NEB [id number] [facility] Last Admin: 08/19/18 10:26 Dose: 3 ml Aspirin (Aspirin) 325 mg PO DAILY [facility] Last Admin: 08/19/18 11:00 Dose: Not Given Atorvastatin Calcium (Lipitor) 10 mg PO DAILY [facility] Last Admin: 08/19/18 11:08 Dose: Not Given Bisacodyl (Dulcolax) 5 mg PO DAILYPRN [facility] Dextrose/Water (Dextrose 50%) 25 gm SLOW IVP PRN PRN PRN Reason: Hypoglycemia Last Admin: 08/16/18 20:40 Dose: 25 gm Diltiazem HCl (Cardizem) 30 mg PO Q6H [facility] Last Admin: 08/19/18 11:11 Dose: Not Given Duloxetine HCl (Cymbalta) 60 mg PO DAILY [facility] Last Admin: 08/19/18 11:08 Dose: Not Given Famotidine (Pepcid) 20 mg PO BID [facility] Last Admin: 08/19/18 11:08 Dose: Not Given Ferrous Sulfate (Feosol) 325 mg PO DAILY [facility] Last Admin: 08/19/18 11:09 Dose: Not Given Furosemide (Lasix) 40 mg SLOW IVP 0600 [facility] Last Admin: 08/19/18 05:15 Dose: 40 mg Gabapentin (Neurontin) 100 mg PO TID [facility] Last Admin: 08/19/18 11:12 Dose: Not Given Glucagon (Glucagon) 1 mg IM PRN PRN PRN Reason: Hypoglycemia Guaifenesin (Robitussin Sf) 200 mg PO TID [facility] Last Admin: 08/19/18 11:12 Dose: Not Given Haloperidol Lactate (Haldol) 5 mg IM Q4H PRN PRN Reason: Agitation Last Admin: 08/18/18 06:10 Dose: 5 mg Dextrose/Water (D5w) 1,000 mls @ 0 mls/hr IV .Q0M PRN PRN Reason: Hypoglycemia Fentanyl Citrate 2,000 mcg/ (Sodium Chloride) 100 mls @ 0 mls/hr IV INF [facility]; Protocol Stop: 09/11/18 21:59 Last Admin: 08/16/18 20:53 Dose: 100 mls Fentanyl Citrate (Fentanyl Bolus) 250 mls @ 0 mls/hr IVPB PRN PRN PRN Reason: Breakthrough pain/agitation Stop: 09/11/18 21:59 Insulin Glargine 10 units/ (Miscellaneous Medication) 0.1 mls @ 0 mls/hr SC HS [facility] Last Admin: 08/18/18 20:14 Dose: 0.1 mls Insulin Glargine 10 units/ (Miscellaneous Medication) 0.1 mls @ 0 mls/hr SC QAM [facility] Last Admin: 08/19/18 09:19 Dose: 0.1 mls Vancomycin HCl 1.5 gm/ Sodium (Chloride) 250 mls @ 166.667 mls/hr IVPB 0300, 1500 [facility] Last Admin: 08/19/18 02:37 Dose: 250 mls Dexmedetomidine HCl 400 mcg/ (Sodium Chloride) 100 mls @ 0 mls/hr IVPB INF [facility] ; Protocol Last Admin: 08/18/18 23:03 Dose: 100 mls Potassium Chloride 20 meq/ (Device) 100 mls @ 50 mls/hr IVPB Q2H [facility] Stop: 08/19/18 16:59 Last Admin: 08/19/18 11:34 Dose: 100 mls Ibuprofen (Motrin) 600 mg PO Q8HR [facility] Last Admin: 08/19/18 11:11 Dose: Not Given Insulin Human Regular (Humulin R) 0 units SC .MODERATE SLIDING SC PRN PRN Reason: Moderate Correctional Scale Last Admin: 08/18/18 04:42 Dose: 2 unit Ketorolac Tromethamine (Toradol) 15 mg IVP Q6HR [facility] Stop: 08/21/18 12:01 Last Admin: 08/19/18 11:35 Dose: 15 mg Methylprednisolone Sodium Succinate (Solu-Medrol) 40 mg IVP DAILY [facility] Last Admin: 08/19/18 09:30 Dose: 40 mg Miscellaneous Medication (Pharmacy To Dose) 0 each IVPB DAILYPRN PRN PRN Reason: LABS Morphine Sulfate (Morphine) 2 mg SLOW IVP Q4H PRN PRN Reason: Severe Pain (7-10) Discontinue Previous Narcotic Pain Medications And Benzodiazepines 1 each FS .ONE [facility] Stop: 09/11/18 21:59 Polyethylene Glycol (Miralax) 17 gm PO DAILY [facility] Last Admin: 08/19/18 09:30 Dose: Not Given Propofol (Diprivan) 1,000 mg IV INF PRN; Protocol PRN Reason: TO ACHIEVE GOAL RASS Stop: 09/11/18 21:59 Last Admin: 08/19/18 02:37 Dose: 1,000 mg Propofol (Diprivan Bolus) 20 mg IV Q5MIN PRN PRN Reason: BREAKTHROUGH AGITATION Stop: 09/11/18 21:59 Quetiapine Fumarate (Seroquel) 50 mg PO HS [facility] Last Admin: 08/18/18 20:13 Dose: 50 mg Senna/Docusate Sodium (Senokot S) 2 tab PO BID [facility] Last Admin: 08/19/18 09:31 Dose: Not Given Sodium Chloride (Flush - Normal Saline) 10 ml IVF PRN PRN PRN Reason: Saline Flush Last Admin: 08/19/18 11:37 Dose: 10 ml
--- NOTE | 2018-08-19 14:40 | PRG ---
DATE OF SERVICE: 08/19/2018 SERVICE: Pulmonary Medicine. INTERVAL HISTORY: The patient is doing fine from respiratory standpoint. Breathing comfortably. There has been no interval change to his condition. This morning, we were preparing to extubate him. He was on a CPAP trial. He did so well, that he ultimately self-extubated. Afterwards, he did not have any significant respiratory failure. He had a little bit of paradoxical chest wall movement. That being said, it was not so severe that of considering a flail chest. We put him on a little bit of BiPAP. He tolerated this just fine. We will start giving him breaks through time. PHYSICAL EXAMINATION: VITAL SIGNS: Afebrile, pulse 100, blood pressure 143/97, respirations 21, saturation 95% on 23% FiO2 and a PEEP of 5. GENERAL: The patient is awake and alert. No apparent distress. LUNGS: Decent air entry. Dependent crackles are minimal. There is no prolonged expiratory phase or wheezing appreciated. HEART: Normal rate, regular. ABDOMEN: Soft, nontender, and nondistended. Bowel sounds are positive. MUSCULOSKELETAL: No cyanosis or clubbing. There is still 1 to 2+ pitting in the bilateral lower extremities, though it is little improved. GENITOURINARY: Hernandez catheter in place. NEUROLOGIC: Grossly nonfocal. LABORATORY DATA: Potassium 3.2. Basic metabolic profile is otherwise unremarkable. Respiratory culture, blood cultures x2, and urine culture are all negative to date. IMAGING DATA: Chest x-ray demonstrates good aeration of the bilateral lungs with good placement of the right-sided thoracostomy tube. I cannot see where the side port is on the chest tube. Endotracheal tube is in good position. Right IJ is also in good position. ASSESSMENT: 1. Acute hypoxic respiratory failure, improving. 2. Traumatic hemothorax, status post thoracostomy drains. 3. Rib fractures, multiple without flail chest. 4. Healthcare-associated pneumonia, possible. DISCUSSION AND PLAN: We will replace the potassium today. He will need to be on and off BiPAP through time. I would certainly leave him in the ICU for the time being. We will continue working on mobilizing the patient. At this point, he cannot tolerate p.o. We will watch for additional tachyarrhythmias. Hopefully, they will not recur. We will leave him on a little bit of Precedex in order to minimize discomfort and dissociate him from his pain. CRITICAL CARE TIME: 30 minutes. Job ID: [id number]
[2018-08-19 15:12] LABS: Vancomycin, Trough 19.8 ug/mL
[2018-08-19] MEDS ORDERED: Labetalol HCl 100 MG/20 ML VIAL SLOW IVP PRN (18:43)
[2018-08-20] MEDS: Dextrose 50% Abboject 50 ML SYRINGE SLOW IVP PRN (00:44)
[2018-08-20] MEDS: Vancomycin HCl 1.5 GM in Sodium Chloride 0.9% 250 ML 250 ML IVPB SCH ×2 (04:15→15:09)
[2018-08-20] MEDS: Morphine 2 MG/ML SYRINGE SLOW IVP PRN ×2 (05:24→09:42)
[2018-08-20] MEDS: Furosemide 40 MG/4 ML VIAL SLOW IVP SCH (05:25)
[2018-08-20 05:49] LABS: Anion Gap 9 mmol/L (10-20); BUN (Urea Nitrogen) 11 mg/dL (8.4-25.7); Calc. Creatinine Clearance 136 mL/min (70-130); Calcium 8.5 mg/dL (7.8-10.44); Carbon Dioxide 37 mmol/L (23-31); Chloride 96 mmol/L (98-107); Estimated GFR-MDRD Greater than 90; Glucose 98 mg/dL (83-110); Potassium 3.8 mmol/L (3.5-5.1); Sodium 138 mmol/L (136-145)
[2018-08-20] MEDS: Ibuprofen 600 MG TAB PO SCH (07:53)
[2018-08-20] MEDS: Atorvastatin Calcium 10 MG TAB PO SCH (09:00)
[2018-08-20] MEDS: Polyethylene Glycol 3350 17 GM Packet PO SCH (09:00)
[2018-08-20] MEDS: Ferrous Sulfate 325 MG TAB PO SCH (09:00)
[2018-08-20] MEDS: Diabetic Tussin 200 MG/10 ML UDCUP PO SCH (09:00)
[2018-08-20] MEDS: Senokot S 8.6-50 MG TAB PO SCH ×2 (09:00→21:52)
[2018-08-20] MEDS: Aspirin 325 MG TAB PO SCH (09:00)
[2018-08-20] MEDS: DULoxetine 60 MG CAP PO SCH (09:00)
[2018-08-20] MEDS: Famotidine 20 MG TAB PO SCH (09:00)
[2018-08-20] MEDS: Gabapentin 100 MG CAP PO SCH ×3 (09:00→21:52)
--- NOTE | 2018-08-20 09:13 | RAD ---
CHEST ONE VIEW: HISTORY: An 87-year-old male with a history of respiratory insufficiency. Follow up trauma. FINDINGS: NG and endotracheal tubes have been removed. A right central line remains in place. A right chest t ube remains in place. There are right rib fractures. There is an abnormal opacity in the right lung , perihilar region, with some minimal associated right-sided volume loss, which may represent some co mponent of atelectasis. Stable appearing left chest. IMPRESSION: 1. Overall stable appearing chest. 2. Removal of the nasogastric tube and endotracheal tube. 3. Persistent abnormal opacity in the right lung with minimal right-sided volume loss, although ther e is some rotation to the right. Continue short-term followup. POS: [facility]
[2018-08-20] MEDS ORDERED: Acetaminophen 1,000 MG in Premix Bag 1 BAG IVPB SCH (09:15)
[2018-08-20] MEDS: Ketorolac Tromethamine 30 MG/ML VIAL IVP SCH ×3 (11:40→17:51)
[2018-08-20] MEDS: Acetaminophen 1,000 MG in Premix Bag 1 BAG IVPB SCH ×2 (11:42→17:50)
[2018-08-20] MEDS: Insulin Glargine 10 UNITS in Pre-Filled Syringe 1 EACH SC SCH (12:39)
[2018-08-20] MEDS ORDERED: Diltiazem 125 MG in Sodium Chloride 0.9% 100 ML IVPB SCH (12:45)
--- NOTE | 2018-08-20 13:31 | PDOC.PN ---
- Subjective Encounter Start Date: 08/20/18 Encounter Start Time: 10:00 Subjective: pt up in bed on bipap - Objective Vital Signs & Weight: Vital Signs (12 hours) Temp Pulse Resp Pulse Ox 08/20/18 10:39 114 H 08/20/18 10:35 116 H 24 H 95 08/20/18 07:53 96 08/20/18 07:50 110 H 30 H 99 08/20/18 07:00 98.5 F 08/20/18 06:55 99 08/20/18 04:00 97.8 F 08/20/18 02:08 100 30 H 92 L Weight Admit Weight 196 lb Weight 198 lb 10.184 oz Most Recent Monitor Data Heart Rate from ECG 119 NIBP 137/94 NIBP BP-Mean 108 Respiration from ECG 24 SpO2 92 I&O: 08/19/18 08/20/18 08/21/18 06:59 06:59 06:59 Intake Total 5387.5 1161 Output Total 7745 6990 940 [facility] -2357.5 -5829 -940 Result Diagrams: 08/18/18 02:00 08/20/18 05:16 Additional Labs: Accuchecks 08/20/18 08/20/18 08/20/18 13:01 08:20 04:23 POC Glucose 180 H 101 91 08/20/18 08/20/18 08/19/18 01:36 00:20 21:03 POC Glucose 124 H 59 L* 71 08/19/18 17:37 POC Glucose 75 Phys Exam - Physical Examination Neck: no nodes, no JVD, supple, full ROM mild rhonchi all over Cardiovascular: RRR, no significant murmur, no rub, gallop, irregular Gastrointestinal: soft, non-tender, no distention, positive bowel sounds Dx/Plan (1) Acute respiratory failure with hypoxia Code(s): J96.01 - ACUTE RESPIRATORY FAILURE WITH HYPOXIA Status: Acute (2) Atrial fibrillation with RVR Code(s): I48.91 - UNSPECIFIED ATRIAL FIBRILLATION Status: Acute (3) Hemothorax Code(s): J94.2 - HEMOTHORAX Status: Acute Comment: Status post VATS, chest tube. 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 Review of Systems - Review of Systems Respiratory: negative: Cough, Dry, Shortness of Breath, Hemoptysis, SOB with Excertion, Pleuritic Pain, Sputum, Wheezing Cardiovascular: negative: chest pain, palpitations, orthopnea, paroxysmal nocturnal dyspnea, edema, light headedness, other Gastrointestinal: negative: Nausea, Vomiting, Abdominal Pain, Diarrhea, Constipation, Melena, Hematochezia, Other - Medications/Allergies Allergies/Adverse Reactions: Allergies Allergy/AdvReac Type Severity Reaction Status Date / Time No Known Drug Allergies Allergy Verified 10/12/13 01:51 Medications: Current Medications Albuterol/Ipratropium (Duoneb) 3 ml NEB [id number] [facility] Last Admin: 08/20/18 10:35 Dose: 3 ml Aspirin (Aspirin) 325 mg PO DAILY [facility] Last Admin: 08/20/18 09:00 Dose: Not Given Atorvastatin Calcium (Lipitor) 10 mg PO DAILY [facility] Last Admin: 08/20/18 09:00 Dose: Not Given Bisacodyl (Dulcolax) 5 mg PO DAILYPRN [facility] Dextrose/Water (Dextrose 50%) 25 gm SLOW IVP PRN PRN PRN Reason: Hypoglycemia Last Admin: 08/20/18 00:44 Dose: 25 gm Diltiazem HCl (Cardizem) 30 mg PO Q6H [facility] Last Admin: 08/20/18 08:00 Dose: Not Given Duloxetine HCl (Cymbalta) 60 mg PO DAILY [facility] Last Admin: 08/20/18 09:00 Dose: Not Given Famotidine (Pepcid) 20 mg PO BID [facility] Last Admin: 08/20/18 09:00 Dose: Not Given Ferrous Sulfate (Feosol) 325 mg PO DAILY [facility] Last Admin: 08/20/18 09:00 Dose: Not Given Furosemide (Lasix) 40 mg SLOW IVP 0600 [facility] Last Admin: 08/20/18 05:25 Dose: 40 mg Gabapentin (Neurontin) 100 mg PO TID [facility] Last Admin: 08/20/18 09:00 Dose: Not Given Glucagon (Glucagon) 1 mg IM PRN PRN PRN Reason: Hypoglycemia Guaifenesin (Robitussin Sf) 200 mg PO TID [facility] Last Admin: 08/20/18 09:00 Dose: Not Given Haloperidol Lactate (Haldol) 5 mg IM Q4H PRN PRN Reason: Agitation Last Admin: 08/18/18 06:10 Dose: 5 mg Dextrose/Water (D5w) 1,000 mls @ 0 mls/hr IV .Q0M PRN PRN Reason: Hypoglycemia Last Admin: 08/20/18 00:32 Dose: 1,000 mls Insulin Glargine 10 units/ (Miscellaneous Medication) 0.1 mls @ 0 mls/hr SC HS [facility] Last Admin: 08/19/18 21:53 Dose: Not Given Insulin Glargine 10 units/ (Miscellaneous Medication) 0.1 mls @ 0 mls/hr SC QAM [facility] Last Admin: 08/20/18 12:39 Dose: Not Given Vancomycin HCl 1.5 gm/ Sodium (Chloride) 250 mls @ 166.667 mls/hr IVPB 0300, 1500 [facility] Last Admin: 08/20/18 04:15 Dose: 250 mls Dexmedetomidine HCl 400 mcg/ (Sodium Chloride) 100 mls @ 0 mls/hr IVPB INF [facility] ; Protocol Last Admin: 08/20/18 01:00 Dose: 100 mls Acetaminophen 1,000 mg/ Device 100 mls @ 400 mls/hr IVPB Q6HR [facility] Stop: 08/21/18 12:01 Last Admin: 08/20/18 11:42 Dose: 100 mls Diltiazem HCl 125 mg/ Sodium (Chloride) 125 mls @ 5 mls/hr IVPB INF [facility] Insulin Human Regular (Humulin R) 0 units SC .MODERATE SLIDING SC PRN PRN Reason: Moderate Correctional Scale Last Admin: 08/18/18 04:42 Dose: 2 unit Ketorolac Tromethamine (Toradol) 30 mg IVP ONE [facility] Stop: 08/25/18 09:16 Last Admin: 08/20/18 11:40 Dose: 30 mg Ketorolac Tromethamine (Toradol) 15 mg IVP Q6HR [facility] Stop: 08/25/18 12:01 Last Admin: 08/20/18 12:41 Dose: Not Given Labetalol HCl (Normodyne) 20 mg SLOW IVP Q4H PRN PRN Reason: SBP Greater Than 180 Last Admin: 08/19/18 23:19 Dose: 20 mg Methylprednisolone Sodium Succinate (Solu-Medrol) 40 mg IVP DAILY [facility] Last Admin: 08/20/18 08:20 Dose: 40 mg Miscellaneous Medication (Pharmacy To Dose) 0 each IVPB DAILYPRN PRN PRN Reason: LABS Morphine Sulfate (Morphine) 2 mg SLOW IVP Q4H PRN PRN Reason: Severe Pain (7-10) Last Admin: 08/20/18 09:42 Dose: 2 mg Discontinue Previous Narcotic Pain Medications And Benzodiazepines 1 each FS .ONE [facility] Stop: 09/11/18 21:59 Polyethylene Glycol (Miralax) 17 gm PO DAILY [facility] Last Admin: 08/20/18 09:00 Dose: Not Given Quetiapine Fumarate (Seroquel) 50 mg PO HS [facility] Last Admin: 08/19/18 21:53 Dose: Not Given Senna/Docusate Sodium (Senokot S) 2 tab PO BID [facility] Last Admin: 08/20/18 09:00 Dose: Not Given Sodium Chloride (Flush - Normal Saline) 10 ml IVF PRN PRN PRN Reason: Saline Flush Last Admin: 08/19/18 11:37 Dose: 10 ml
--- NOTE | 2018-08-20 14:43 | PRG ---
DATE OF SERVICE: 08/20/2018 SERVICE: Pulmonary Medicine. INTERVAL HISTORY: The patient is doing great from respiratory standpoint. Breathing comfortably. Denies any current shortness of breath. He is having some chest discomfort, which is appropriate. Otherwise, there has been no interval change to his condition. PHYSICAL EXAMINATION: VITAL SIGNS: Afebrile, pulse 119, blood pressure 137/94, respirations 24, saturations 92% on 2 L nasal cannula. GENERAL: The patient is awake and alert, in no apparent distress. LUNGS: Excellent air entry. I do not appreciate crackling today. HEART: Normal rate, regular. ABDOMEN: Soft, nontender, and nondistended. Bowel sounds are positive. MUSCULOSKELETAL: No cyanosis or clubbing. No pitting in the bilateral lower extremities. He has skin tenting at this point, dry mucous membranes once again. : No Hrenandez. NEUROLOGIC: Grossly nonfocal. LABORATORY DATA: WBC 13.2, hemoglobin 9.2, and platelets 207,000. Basic metabolic profile is essentially unremarkable otherwise. Glucose 180. Calcium 8.5. Respiratory culture, blood cultures x2, and urine culture all unremarkable. IMAGING DATA: Chest x-ray demonstrates a stable appearing chest. NG tube and endotracheal tube have been removed. Right lung opacification persists. There is thoracostomy tube that remains in the right chest. ASSESSMENT: 1. Acute hypoxic respiratory failure, improving. 2. Traumatic hemothorax, status post thoracostomy drains. 3. Rib fractures on the right, multiple without flail chest. 4. Pulmonary contusion. 5. Healthcare-associated pneumonia, possible. DISCUSSION AND PLAN: We will continue our supportive measures. At this point, the patient is dry, so I am going to discontinue his Lasix and initiate him on maintenance fluids until he can eat or intake p.o. For the time being, his swallow has not come around to the point, where he can safely take p.o. This has been re-investigated on a daily basis. Pulmonary Critical Care will continue to follow along. Job ID: [id number]
[2018-08-20] MEDS: Sodium Chloride 0.45% 1,000 ML IV SCH (15:10)
[2018-08-20] MEDS: Insulin Regular 300 UNITS/3 ML VIAL SC PRN (17:45)
--- NOTE | 2018-08-20 19:22 | PRG ---
DATE OF SERVICE: 08/20/2018 SUBJECTIVE: The patient remains on the critical care unit. The patient underwent extubation yesterday. Overnight, had no issues. This morning, he is awake, complaining of his right-sided chest pain, which is expected with his multiple rib fractures there. His breathing is doing well. His oxygen saturation is staying above 90% with only 2 L of oxygen via nasal cannula. PHYSICAL EXAMINATION: VITAL SIGNS: Temperature is 98.7, heart rate 110, respirations 30, oxygen saturation is 99% on 2 L via nasal cannula, and blood pressure 158/105. GENERAL: The patient is resting comfortably in bed. He is awake and responds appropriately to verbal stimuli and will follow simple commands. HEENT: Unchanged. LUNGS: Somewhat diminished on the right. Otherwise, clear to auscultation bilaterally. HEART: Regular with slight tachycardia. ABDOMEN: Soft, flat, nontender with hypoactive bowel sounds. EXTREMITIES: Neurovascularly intact x4. LABORATORY FINDINGS: Sodium 138, potassium 3.8, chloride 96, CO2 of 37, BUN 11, creatinine 0.54, and glucose 98. RADIOGRAPHS: Chest x-ray shows overall stable appearing chest. ASSESSMENT: 1. Status post fall. 2. Multiple right-sided rib fractures. 3. Status post hemothorax with retained hemothorax requiring video-assisted thoracoscopic surgery procedure. 4. Acute hypoxic respiratory failure. PLAN: Plan will be to continue his supportive measures, have Speech re-evaluate him for swallow study, pain control, and eventually begin working again with Physical and Occupational Therapy. Job ID: [id number]
[2018-08-21] MEDS: Ketorolac Tromethamine 30 MG/ML VIAL IVP SCH ×5 (00:08→23:31)
[2018-08-21] MEDS: Acetaminophen 1,000 MG in Premix Bag 1 BAG IVPB SCH ×3 (00:09→14:04)
[2018-08-21] MEDS: Sodium Chloride 0.45% 1,000 ML IV SCH ×3 (03:21→14:21)
[2018-08-21] MEDS: Vancomycin HCl 1.5 GM in Sodium Chloride 0.9% 250 ML 300 ML IVPB SCH ×2 (03:22→14:38)
[2018-08-21 05:18] LABS: #Eosinphils 0.1 thou/uL (0.0-0.7); #Lymphocytes 1.2 thou/uL (1.20-3.40); #Monocytes 0.9 thou/uL (0.11-0.59); #Neutrophils 7.9 thou/uL (1.40-6.50); %Basophils 0.1 % (0.0-1.0); %Eosinophils 0.9 % (0.0-10.0); %Lymphocytes 11.6 % (21.0-51.0); %Monocytes 8.7 % (0.0-10.0); %Neutrophils 78.6 % (42.0-75.0); Hemoglobin 9.5 g/dL (14.0-18.0); Mean Corpuscular HGB CONC 33.2 g/dL (32.0-36.0); Mean Corpuscular Hemoglobin 31.6 pg (27.0-31.0); Mean Platelet Volume 6.7 fL (7.4-10.4); Platelet Count 314 thou/uL (130-400); RBC Distribution Width 12.9 % (11.5-14.5); Red Blood Cell (RBC) Count 3.02 mill/uL (4.70-6.10)
[2018-08-21 05:34] LABS: Anion Gap 10 mmol/L (10-20); BUN (Urea Nitrogen) 23 mg/dL (8.4-25.7); Calc. Creatinine Clearance 121 mL/min (70-130); Calcium 7.7 mg/dL (7.8-10.44); Carbon Dioxide 32 mmol/L (23-31); Chloride 96 mmol/L (98-107); Estimated GFR-MDRD Greater than 90; Glucose 126 mg/dL (83-110); Magnesium 1.6 mg/dL (1.6-2.6); Phosphorus 2.9 mg/dL (2.3-4.7); Potassium 3.7 mmol/L (3.5-5.1); Sodium 134 mmol/L (136-145)
[2018-08-21] MEDS: Pantoprazole 40 MG VIAL IVP SCH (09:11)
--- NOTE | 2018-08-21 13:21 | PRG ---
DATE OF SERVICE: 08/21/2018 SERVICE: Pulmonary Medicine. INTERVAL HISTORY: The patient is doing fine from respiratory standpoint. Denies any current chest pain, fevers, chills, nausea, or vomiting. He is breathing comfortably. Otherwise, there has been no interval change to his condition. He requires a little bit of Precedex. This helps with some of his discomfort. PHYSICAL EXAMINATION: VITAL SIGNS: Afebrile, pulse 74, blood pressure 105/64, respirations 27, saturation 100% on 2 L nasal cannula. GENERAL: The patient is awake and alert, in no apparent distress. HEENT: Normocephalic and atraumatic. Sclerae white. Conjunctivae pink. Oral mucosa is moist without lesions. LUNGS: Decent air entry. Crackles are present. There is no prolonged expiratory phase or wheezing appreciated. HEART: Normal rate and regular. ABDOMEN: Soft, nontender, and nondistended. Bowel sounds are positive. MUSCULOSKELETAL: No cyanosis or clubbing. There is no pitting in the bilateral lower extremities. NEUROLOGIC: Grossly nonfocal. LABORATORY DATA: WBC 10.0, hemoglobin 9.5, platelets 314,000. Sodium 134, chloride 96, bicarb 32. Basic metabolic profile is otherwise unremarkable. Magnesium 1.6 , phosphorus 2.9. ASSESSMENT: 1. Acute hypoxic respiratory failure, improving. 2. Traumatic hemothorax, status post thoracostomy drains. 3. Rib fractures on the right, multiple without flail chest. 4. Pulmonary contusion. 5. Healthcare-associated pneumonia, possible. DISCUSSION AND PLAN: Antibiotics should be discontinued after a total duration of 10 days. We will continue our maintenance fluids. We will continue our mobilization efforts through time. We will wean away the Precedex if tolerated. For the time being, however, he will need to remain in the ICU. We will try to get him into a chair later this afternoon. Pulmonary will continue to follow in this location. Magnesium will be replaced today. I will give him a laboratory holiday in the morning. Job ID: [id number] MTDD
[2018-08-21] MEDS: Aspirin 325 MG TAB PO SCH (13:59)
[2018-08-21] MEDS: Ferrous Sulfate 325 MG TAB PO SCH (14:00)
[2018-08-21] MEDS: Gabapentin 100 MG CAP PO SCH ×3 (14:00→21:23)
[2018-08-21] MEDS: Atorvastatin Calcium 10 MG TAB PO SCH (14:00)
[2018-08-21] MEDS: DULoxetine 60 MG CAP PO SCH (14:00)
[2018-08-21] MEDS: Insulin Glargine 10 UNITS in Pre-Filled Syringe 1 EACH SC SCH ×2 (14:01→20:42)
[2018-08-21] MEDS: Polyethylene Glycol 3350 17 GM Packet PO SCH (14:01)
[2018-08-21] MEDS: Senokot S 8.6-50 MG TAB PO SCH ×2 (14:01→21:23)
--- NOTE | 2018-08-21 14:22 | PDOC.PN ---
- Subjective Encounter Start Date: 08/21/18 Encounter Start Time: 10:00 Subjective: pt up in bed asleep - Objective Vital Signs & Weight: Vital Signs (12 hours) Temp Pulse Resp Pulse Ox 08/21/18 12:00 97.7 F 08/21/18 07:51 98 08/21/18 07:00 97.8 F 08/21/18 06:49 77 18 94 L 08/21/18 04:00 98.4 F Weight Admit Weight 196 lb Weight 198 lb 6.656 oz Most Recent Monitor Data Heart Rate from ECG 74 NIBP 105/64 NIBP BP-Mean 77 Respiration from ECG 27 SpO2 100 I&O: 08/20/18 08/21/18 08/22/18 06:59 06:59 06:59 Intake Total 1161 2425.8 Output Total 6990 1930 310 Balance -5829 495.8 -310 Result Diagrams: 08/21/18 04:18 08/21/18 04:18 Additional Labs: Accuchecks 08/21/18 08/21/18 08/21/18 09:03 04:20 00:19 POC Glucose 136 H 125 H 128 H 08/20/18 08/20/18 20:14 17:39 POC Glucose 149 H 232 H Phys Exam - Physical Examination Neck: no nodes, no JVD, supple, full ROM Respiratory: no wheezing, no rales, no rhonchi, wheezing present, clear to auscultation bilateral Cardiovascular: RRR, no significant murmur, no rub, gallop, irregular Gastrointestinal: soft, non-tender, no distention, positive bowel sounds Dx/Plan (1) Acute respiratory failure with hypoxia Code(s): J96.01 - ACUTE RESPIRATORY FAILURE WITH HYPOXIA Status: Acute (2) Atrial fibrillation with RVR Code(s): I48.91 - UNSPECIFIED ATRIAL FIBRILLATION Status: Acute (3) Hemothorax Code(s): J94.2 - HEMOTHORAX Status: Acute Comment: Status post VATS, chest tube. (4) Fall Code(s): W19.XXXA - UNSPECIFIED FALL, INITIAL ENCOUNTER Status: Acute Comment: Possible syncope (5) DM2 (diabetes mellitus, type 2) Status: Chronic Qualifiers: Diabetes mellitus chcf insulin use: without chcf use - Plan pt asleep, family at bedside -: abx off will monitor -: swallow eval later today * . Review of Systems - Review of Systems Other: pt asleep. - Medications/Allergies Allergies/Adverse Reactions: Allergies Allergy/AdvReac Type Severity Reaction Status Date / Time No Known Drug Allergies Allergy Verified 10/12/13 01:51 Medications: Current Medications Albuterol/Ipratropium (Duoneb) 3 ml NEB [id number] [facility] Last Admin: 08/21/18 13:53 Dose: Not Given Aspirin (Aspirin) 325 mg PO DAILY [facility] Last Admin: 08/21/18 13:59 Dose: Not Given Atorvastatin Calcium (Lipitor) 10 mg PO DAILY [facility] Last Admin: 08/21/18 14:00 Dose: Not Given Bisacodyl (Dulcolax) 5 mg PO DAILYPRN [facility] Dextrose/Water (Dextrose 50%) 25 gm SLOW IVP PRN PRN PRN Reason: Hypoglycemia Last Admin: 08/20/18 00:44 Dose: 25 gm Duloxetine HCl (Cymbalta) 60 mg PO DAILY [facility] Last Admin: 08/21/18 14:00 Dose: Not Given Ferrous Sulfate (Feosol) 325 mg PO DAILY [facility] Last Admin: 08/21/18 14:00 Dose: Not Given Gabapentin (Neurontin) 100 mg PO TID [facility] Last Admin: 08/21/18 14:00 Dose: Not Given Glucagon (Glucagon) 1 mg IM PRN PRN PRN Reason: Hypoglycemia Dextrose/Water (D5w) 1,000 mls @ 0 mls/hr IV .Q0M PRN PRN Reason: Hypoglycemia Last Admin: 08/20/18 00:32 Dose: 1,000 mls Insulin Glargine 10 units/ (Miscellaneous Medication) 0.1 mls @ 0 mls/hr SC QAM [facility] Last Admin: 08/21/18 14:01 Dose: Not Given Dexmedetomidine HCl 400 mcg/ (Sodium Chloride) 100 mls @ 0 mls/hr IVPB INF [facility] ; Protocol Last Admin: 08/21/18 05:43 Dose: 100 mls Vancomycin HCl 1.5 gm/ Sodium (Chloride) 300 mls @ 200 mls/hr IVPB 0300,1500 [facility] Last Admin: 08/21/18 03:22 Dose: 300 mls Insulin Glargine 10 units/ (Miscellaneous Medication) 0.1 mls @ 0 mls/hr SC HS [facility] Sodium Chloride (1/2 Normal Saline) 1,000 mls @ 75 mls/hr IV .[id number] [facility] Last Admin: 08/21/18 14:18 Dose: 1,000 mls Insulin Human Regular (Humulin R) 0 units SC .MODERATE SLIDING SC PRN PRN Reason: Moderate Correctional Scale Last Admin: 08/20/18 17:45 Dose: 4 unit Ketorolac Tromethamine (Toradol) 30 mg IVP ONE [facility] Stop: 08/25/18 09:16 Last Admin: 08/20/18 11:40 Dose: 30 mg Ketorolac Tromethamine (Toradol) 15 mg IVP Q6HR [facility] Stop: 08/25/18 12:01 Last Admin: 08/21/18 14:05 Dose: 15 mg Labetalol HCl (Normodyne) 20 mg SLOW IVP Q4H PRN PRN Reason: SBP Greater Than 180 Last Admin: 08/19/18 23:19 Dose: 20 mg Miscellaneous Medication (Pharmacy To Dose) 0 each IVPB DAILYPRN PRN PRN Reason: LABS Morphine Sulfate (Morphine) 2 mg SLOW IVP Q4H PRN PRN Reason: Severe Pain (7-10) Last Admin: 08/20/18 09:42 Dose: 2 mg Discontinue Previous Narcotic Pain Medications And Benzodiazepines 1 each FS .ONE [facility] Stop: 09/11/18 21:59 Pantoprazole Sodium (Protonix) 40 mg IVP DAILY [facility] Last Admin: 08/21/18 09:11 Dose: 40 mg Polyethylene Glycol (Miralax) 17 gm PO DAILY [facility] Last Admin: 08/21/18 14:01 Dose: Not Given Senna/Docusate Sodium (Senokot S) 2 tab PO BID [facility] Last Admin: 08/21/18 14:01 Dose: Not Given Sodium Chloride (Flush - Normal Saline) 10 ml IVF PRN PRN PRN Reason: Saline Flush Last Admin: 08/19/18 11:37 Dose: 10 ml
[2018-08-21] MEDS ORDERED: Magnesium Sulfate 3 GM in Sodium Chloride 0.9% 250 ML 250 ML IVPB SCH (19:00)
--- NOTE | 2018-08-21 20:18 | PRG ---
DATE OF SERVICE: 08/21/2018 SUBJECTIVE: The patient remains in the critical care unit. He had no events overnight. He tolerated being extubated, maintaining his sats above 90% with only 2 L via nasal cannula. This morning, he was a little somnolent, but did open his eyes and give me a thumbs up and squeeze my hands appropriately, and he nodded his head that he was not having any pain at this time. PHYSICAL EXAMINATION: VITAL SIGNS: Temperature is 98.4, heart rate 77, blood pressure 129/74, respirations 16, and oxygen saturation 99%. GENERAL: The patient is resting comfortably in bed. As noted above, he is following commands, albeit he is somewhat somnolent this morning, though the nurses do report that he got some rest last night. HEENT: Unchanged. LUNGS: Clear to auscultation. Improving bilaterally. HEART: Regular rate and rhythm. ABDOMEN: Soft, flat, nontender with active bowel sounds. EXTREMITIES: Neurovascularly intact x4. LABORATORY FINDINGS: White blood cell count 10.0, hemoglobin 9.5, hematocrit 28.7, and platelets 314. Sodium 134, potassium 3.7, chloride 96, CO2 of 32, BUN 23, creatinine 0.57, glucose 126, magnesium 1.6, and phosphorus 2.9. RADIOGRAPHS: There are no radiographs reviewed this morning. ASSESSMENT: 1. Status post fall. 2. Status post video-assisted thoracoscopic surgery procedure for retained hemothorax. 3. Multiple right rib fractures. PLAN: Plan will be to continue supportive care. We will move the patient to the [facility] for continued closer monitoring, in hopes that the patient will be able to start working with Physical and Occupational Therapy and eventually progress back to the surgical floor. Job ID: [id number]
[2018-08-21] MEDS: Morphine 4 MG/ML VIAL SLOW IVP PRN (22:23)
[2018-08-22] MEDS: Vancomycin HCl 1.5 GM in Sodium Chloride 0.9% 250 ML 300 ML IVPB SCH (02:38)
[2018-08-22] MEDS: Sodium Chloride 0.45% 1,000 ML IV SCH ×2 (02:38→15:45)
[2018-08-22] MEDS: Ketorolac Tromethamine 30 MG/ML VIAL IVP SCH ×5 (05:29→23:59)
[2018-08-22] MEDS: Gabapentin 100 MG CAP PO SCH ×3 (09:09→20:47)
[2018-08-22] MEDS: Aspirin 325 MG TAB PO SCH (09:09)
[2018-08-22] MEDS: Atorvastatin Calcium 10 MG TAB PO SCH (09:09)
[2018-08-22] MEDS: Polyethylene Glycol 3350 17 GM Packet PO SCH (09:09)
[2018-08-22] MEDS: DULoxetine 60 MG CAP PO SCH (09:09)
[2018-08-22] MEDS: Ferrous Sulfate 325 MG TAB PO SCH (09:09)
[2018-08-22] MEDS: Insulin Glargine 10 UNITS in Pre-Filled Syringe 1 EACH SC SCH ×2 (09:10→20:47)
[2018-08-22] MEDS: Senokot S 8.6-50 MG TAB PO SCH ×2 (09:10→20:47)
[2018-08-22] MEDS: Pantoprazole 40 MG VIAL IVP SCH (10:15)
--- NOTE | 2018-08-22 14:22 | PDOC.PN ---
- Subjective Encounter Start Date: 08/22/18 Encounter Start Time: 10:30 Subjective: pt up in chair no complains - Objective Vital Signs & Weight: Vital Signs (12 hours) Temp Pulse Pulse Pulse Resp BP BP 08/22/18 11:40 97.5 F L 105 H 23 H 08/22/18 11:22 108 H 16 08/22/18 08:46 113 H 124 H 185/101 H 175/79 H 08/22/18 08:13 08/22/18 08:11 106 H 16 08/22/18 08:00 08/22/18 07:33 97.4 F L 105 H 21 H 08/22/18 04:28 98.2 F 109 H 20 08/22/18 03:02 102 H 16 BP Pulse Ox Pulse Ox Pulse Ox 08/22/18 11:40 179/99 H 100 08/22/18 11:22 08/22/18 08:46 100 100 08/22/18 08:13 100 08/22/18 08:11 08/22/18 08:00 100 08/22/18 07:33 169/99 H 100 08/22/18 04:28 166/97 H 100 08/22/18 03:02 100 Weight Admit Weight 196 lb Weight 197 lb 12.074 oz Most Recent Monitor Data Heart Rate from ECG 109 NIBP 149/94 NIBP BP-Mean 112 Respiration from ECG 23 SpO2 100 I&O: 08/21/18 08/22/18 08/23/18 06:59 06:59 06:59 Intake Total 2425.8 2338 Output Total 1930 1195 Balance 495.8 1143 Result Diagrams: 08/21/18 04:18 08/21/18 04:18 Additional Labs: Accuchecks 08/22/18 08/22/18 08/22/18 08:41 05:33 02:36 POC Glucose 98 94 92 08/21/18 08/21/18 20:42 16:06 POC Glucose 160 H 184 H Phys Exam - Physical Examination Neck: no nodes, no JVD, supple, full ROM Respiratory: no wheezing, no rales, no rhonchi, wheezing present, clear to auscultation bilateral Cardiovascular: RRR, no significant murmur, no rub, gallop, irregular Dx/Plan (1) Acute respiratory failure with hypoxia Code(s): J96.01 - ACUTE RESPIRATORY FAILURE WITH HYPOXIA Status: Acute (2) Atrial fibrillation with RVR Code(s): I48.91 - UNSPECIFIED ATRIAL FIBRILLATION Status: Acute (3) Hemothorax Code(s): J94.2 - HEMOTHORAX Status: Acute Comment: Status post VATS, chest tube. 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 pt has completed course of abx * . Review of Systems - Review of Systems Respiratory: negative: Cough, Dry, Shortness of Breath, Hemoptysis, SOB with Excertion, Pleuritic Pain, Sputum, Wheezing Cardiovascular: negative: chest pain, palpitations, orthopnea, paroxysmal nocturnal dyspnea, edema, light headedness, other Gastrointestinal: negative: Nausea, Vomiting, Abdominal Pain, Diarrhea, Constipation, Melena, Hematochezia, Other - Medications/Allergies Allergies/Adverse Reactions: Allergies Allergy/AdvReac Type Severity Reaction Status Date / Time No Known Drug Allergies Allergy Verified 10/12/13 01:51 Medications: Current Medications Albuterol/Ipratropium (Duoneb) 3 ml NEB [id number] [facility] Aspirin (Aspirin) 325 mg PO DAILY [facility] Last Admin: 08/22/18 09:09 Dose: Not Given Atorvastatin Calcium (Lipitor) 10 mg PO DAILY [facility] Last Admin: 08/22/18 09:09 Dose: Not Given Bisacodyl (Dulcolax) 5 mg PO DAILYPRN [facility] Dextrose/Water (Dextrose 50%) 25 gm SLOW IVP PRN PRN PRN Reason: Hypoglycemia Last Admin: 08/20/18 00:44 Dose: 25 gm Duloxetine HCl (Cymbalta) 60 mg PO DAILY [facility] Last Admin: 08/22/18 09:09 Dose: Not Given Ferrous Sulfate (Feosol) 325 mg PO DAILY [facility] Last Admin: 08/22/18 09:09 Dose: Not Given Gabapentin (Neurontin) 100 mg PO TID [facility] Last Admin: 08/22/18 09:09 Dose: Not Given Glucagon (Glucagon) 1 mg IM PRN PRN PRN Reason: Hypoglycemia Dextrose/Water (D5w) 1,000 mls @ 0 mls/hr IV .Q0M PRN PRN Reason: Hypoglycemia Last Admin: 08/20/18 00:32 Dose: 1,000 mls Insulin Glargine 10 units/ (Miscellaneous Medication) 0.1 mls @ 0 mls/hr SC QAM [facility] Last Admin: 08/22/18 09:10 Dose: Not Given Insulin Glargine 10 units/ (Miscellaneous Medication) 0.1 mls @ 0 mls/hr SC HS [facility] Last Admin: 08/21/18 20:42 Dose: 0.1 mls Sodium Chloride (1/2 Normal Saline) 1,000 mls @ 75 mls/hr IV .[id number] [facility] Last Admin: 08/22/18 02:38 Dose: 1,000 mls Insulin Human Regular (Humulin R) 0 units SC .MODERATE SLIDING SC PRN PRN Reason: Moderate Correctional Scale Last Admin: 08/20/18 17:45 Dose: 4 unit Ketorolac Tromethamine (Toradol) 15 mg IVP Q6HR [facility] Stop: 08/25/18 12:01 Last Admin: 08/22/18 05:29 Dose: 15 mg Labetalol HCl (Normodyne) 20 mg SLOW IVP Q4H PRN PRN Reason: SBP Greater Than 180 Last Admin: 08/19/18 23:19 Dose: 20 mg Miscellaneous Medication (Pharmacy To Dose) 0 each IVPB DAILYPRN PRN PRN Reason: LABS Morphine Sulfate (Morphine) 2 mg SLOW IVP Q4H PRN PRN Reason: Breakthrough Pain Last Admin: 08/21/18 22:23 Dose: 2 mg Discontinue Previous Narcotic Pain Medications And Benzodiazepines 1 each FS .ONE [facility] Stop: 09/11/18 21:59 Pantoprazole Sodium (Protonix) 40 mg IVP DAILY [facility] Last Admin: 08/22/18 10:15 Dose: 40 mg Polyethylene Glycol (Miralax) 17 gm PO DAILY [facility] Last Admin: 08/22/18 09:09 Dose: Not Given Senna/Docusate Sodium (Senokot S) 2 tab PO BID [facility] Last Admin: 08/22/18 09:10 Dose: Not Given Sodium Chloride (Flush - Normal Saline) 10 ml IVF PRN PRN PRN Reason: Saline Flush Last Admin: 08/22/18 10:15 Dose: 10 ml
--- NOTE | 2018-08-22 14:27 | PRG ---
DATE OF SERVICE: 08/22/2018 SERVICE: Pulmonary Medicine. INTERVAL HISTORY: The patient is doing fine from respiratory standpoint. He is breathing comfortably. He continues to have a lot of discomfort. He is a little impulsive and will hop out of bed without too much thinking that he can get up if he is not being watched closely. That being said, he was able to stand and transition into a bedside chair today. He denies any current fevers, chills, nausea, or vomiting. Otherwise, there has been no interval change to condition. PHYSICAL EXAMINATION: VITAL SIGNS: Afebrile, pulse 105, blood pressure 179/99, respirations 23, and saturation 100% on 3 L nasal cannula. GENERAL: The patient is awake and alert, in no apparent distress. LUNGS: Excellent air entry. No crackles are present today. HEART: Normal rate and regular. ABDOMEN: Soft, nontender, and nondistended. Bowel sounds are positive. MUSCULOSKELETAL: No cyanosis or clubbing. No pitting in the bilateral lower extremities. NEUROLOGIC: Grossly nonfocal. LABORATORY DATA: WBC 10.0, hemoglobin 9.5, platelets 314,000. INR 1.3. Respiratory culture, blood culture x2, and urine culture are all unremarkable. ASSESSMENT: 1. Acute hypoxic respiratory failure, improving. 2. Traumatic hemothorax, status post thoracostomy drains, with subsequent removal. 3. Rib fractures on the right, multiple without flow chest. 4. Pulmonary contusion. 5. Healthcare-associated pneumonia, possible. DISCUSSION AND PLAN: The patient has completed a course of antibiotics. Pulmonary Critical Care will continue to follow along in this location. We will continue mobilization efforts. If he demonstrates improving strength throughout today, he could be considered for transition to the floor late today, or tomorrow. I do think he would be well served by going to rehabilitation facility if he qualifies. Job ID: [id number]
--- NOTE | 2018-08-22 15:09 | PRG ---
DATE OF SERVICE: 08/22/2018 SUBJECTIVE: The patient is currently on the IMCU. He had no events overnight. This morning, he is in a chair at bedside with multiple family members with him and he is also currently being evaluated by Speech Therapy. OBJECTIVE: VITAL SIGNS: Temperature 97.5, heart rate 106, respirations 16, oxygen saturations 100% on 2 L via nasal cannula, and blood pressure 179/99. GENERAL: The patient is resting comfortably in bed. He is awake and responds appropriately to verbal stimuli. Follows commands. Appears to be in a relatively good mood this morning and says that his pain is better controlled today. HEENT: Unremarkable. LUNGS: Clear bilaterally. HEART: Tachycardic and regular. ABDOMEN: Soft, flat, nontender with active bowel sounds. EXTREMITIES: Neurovascularly intact x4. DIAGNOSTIC STUDIES: There are no labs or radiographs to review this morning. ASSESSMENT: 1. Status post fall. 2. Status post right rib fractures with flail segment. 3. Status post video-assisted thoracoscopic surgery procedure of right chest. 4. Status post respiratory failure and arrest. PLAN: Plan will be to continue supportive care. We will keep him on the IMCU for one more day. Speech Therapy is evaluating him and suggest that he may require a modified swallow study that will be done tomorrow if he is unable to progress today. Otherwise, we will maintain this course of treatment. Job ID: [id number]
[2018-08-23 04:52] LABS: #Eosinphils 0.2 thou/uL (0.0-0.7); #Lymphocytes 1.2 thou/uL (1.20-3.40); #Monocytes 1.1 thou/uL (0.11-0.59); #Neutrophils 12.9 thou/uL (1.40-6.50); %Basophils 0.1 % (0.0-1.0); %Eosinophils 1.5 % (0.0-10.0); %Lymphocytes 7.8 % (21.0-51.0); %Monocytes 7.3 % (0.0-10.0); %Neutrophils 83.3 % (42.0-75.0); Hemoglobin 9.8 g/dL (14.0-18.0); Mean Corpuscular HGB CONC 33.3 g/dL (32.0-36.0); Mean Corpuscular Hemoglobin 31.8 pg (27.0-31.0); Mean Corpuscular Volume 95.5 fL (78.0-98.0); Mean Platelet Volume 6.4 fL (7.4-10.4); Platelet Count 359 thou/uL (130-400); Red Blood Cell (RBC) Count 3.09 mill/uL (4.70-6.10); White Blood Cell (WBC) Count 15.5 thou/uL (4.8-10.8)
[2018-08-23] MEDS: Ketorolac Tromethamine 30 MG/ML VIAL IVP SCH ×3 (05:23→18:02)
[2018-08-23] MEDS: Sodium Chloride 0.45% 1,000 ML IV SCH (05:24)
[2018-08-23 05:37] LABS: Anion Gap 11 mmol/L (10-20); BUN (Urea Nitrogen) 14 mg/dL (8.4-25.7); Calc. Creatinine Clearance 127 mL/min (70-130); Carbon Dioxide 31 mmol/L (23-31); Chloride 99 mmol/L (98-107); Estimated GFR-MDRD Greater than 90; Glucose 99 mg/dL (83-110); Potassium 3.3 mmol/L (3.5-5.1); Sodium 138 mmol/L (136-145)
[2018-08-23] MEDS ORDERED: Potassium Phosphate 30 MMOL in Sodium Chloride 0.9% 250 ML 250 ML IVPB SCH (07:15)
[2018-08-23] MEDS: Aspirin 325 MG TAB PO SCH (08:42)
[2018-08-23] MEDS: Atorvastatin Calcium 10 MG TAB PO SCH (08:42)
[2018-08-23] MEDS: Gabapentin 100 MG CAP PO SCH ×3 (08:42→20:59)
[2018-08-23] MEDS: Ferrous Sulfate 325 MG TAB PO SCH (08:42)
[2018-08-23] MEDS: DULoxetine 60 MG CAP PO SCH (08:42)
[2018-08-23] MEDS: Polyethylene Glycol 3350 17 GM Packet PO SCH (08:43)
[2018-08-23] MEDS: Senokot S 8.6-50 MG TAB PO SCH ×2 (08:43→20:55)
--- NOTE | 2018-08-23 11:58 | RAD ---
MODIFIED BARIUM SWALLOW: HISTORY: Dysphagia. Difficulty swallowing. FLUORO TIME: 1.5 minutes. FINDINGS: Exam is performed in conjunction with speech pathology with multiple consistencies. There is early s pill of contrast with multiple consistencies with some delay in initiation of swallowing with thin li quids. Deep penetration was demonstrated with initial swallows with multiple consistencies, although there was improved clearance upon secondary swallowing. No aspiration is visible. The esophagus below the level of the hypopharynx was not evaluated. Please see separate detailed rep ort from speech pathology. POS: LAKESHA
[2018-08-23] MEDS ORDERED: Melatonin 3 MG TAB PO PRN (12:20)
[2018-08-23] MEDS ORDERED: Metoprolol Tartrate 25 MG TAB PO SCH (12:30)
--- NOTE | 2018-08-23 13:19 | PRG ---
DATE OF SERVICE: 08/23/2018 SUBJECTIVE: The patient is currently on the IMCU. He reports that he had a rough night overnight due to experiencing multiple loose bowel movements. Otherwise, he states that his pain is being controlled and he is tolerating his diet, though he is scheduled to undergo a modified barium swallow today to see if we can progress his diet. PHYSICAL EXAMINATION: VITAL SIGNS: Temperature is 98.1, heart rate 109, blood pressure 169/100, respirations 18, oxygen saturation 100% on 3 L via nasal cannula. GENERAL: The patient is resting in bed. He was asleep when I entered the room, was easily awakened with verbal stimuli and was conversant appropriate during my conversation. HEENT: Unremarkable. LUNGS: Clear to auscultation with fairly good inspiratory and expiratory effort in light of his chest trauma and surgery. EXTREMITIES: Neurovascularly intact x4. LABORATORY FINDINGS: White blood cell count 15.1, hemoglobin 9.8, hematocrit 29.5, platelets 359. Sodium 138, potassium 3.3, chloride 99, CO2 of 31, BUN 14, creatinine 0.54, glucose 99, magnesium 2.0, phosphorus 2.0. There are no radiographs reviewed this morning. ASSESSMENT: 1. Status post fall. 2. Status post multiple right rib fractures. 3. Status post video-assisted thoracoscopic surgery procedure on right. 4. Hypertension. 5. Hypophosphatemia. 6. Hypokalemia. PLAN: Plan will be to await barium swallow to modify his diet. We will replace his electrolyte, add metoprolol to his antihypertensives, continue pain management, and transfer him to the floor today. Job ID: [id number]
[2018-08-23] MEDS: Insulin Glargine 10 UNITS in Pre-Filled Syringe 1 EACH SC SCH ×2 (13:51→20:56)
[2018-08-23] MEDS: Pantoprazole 40 MG VIAL IVP SCH (13:53)
--- NOTE | 2018-08-23 16:33 | PRG ---
DATE OF SERVICE: 08/23/2018 SUBJECTIVE: The patient is about the same. He had no acute complaints. OBJECTIVE: VITAL SIGNS: Temperature 97.8, pulse 99, respirations 20, O2 saturations 92% on 2 L, blood pressure 132/89. HEENT: Unremarkable. NECK: No JVD. LUNGS: Diminished breath sounds at the bases. CARDIAC: S1 and S2. Regular. ABDOMEN: Soft. EXTREMITIES: No edema. LABORATORY DATA: White blood cell count 15.5, hematocrit 29.5, platelet count 359. Sodium 130, potassium 3.3, BUN 14, creatinine 0.5, glucose 99. ASSESSMENT: Status post traumatic rib fractures and evacuation of a right hemothorax. PLAN: Continue pain management. Aggressive pulmonary toilet measures. He can be moved out to the floor. Job ID: [id number]
--- NOTE | 2018-08-23 20:35 | PDOC.PN ---
- Subjective Encounter Start Date: 08/23/18 Encounter Start Time: 10:00 Subjective: pt up in chair, just came back from his swallow eval - Objective Vital Signs & Weight: Vital Signs (12 hours) Temp Pulse Resp BP Pulse Ox 08/23/18 19:44 98.2 F 99 24 H 169/107 H 96 08/23/18 15:27 97.8 F 99 22 H 132/89 92 L 08/23/18 13:05 96 18 08/23/18 10:58 98.8 F 111 H 20 163/104 H 100 Weight Admit Weight 193 lb 2 oz Weight 192 lb 7.417 oz Most Recent Monitor Data Heart Rate from ECG 109 NIBP 149/94 NIBP BP-Mean 112 Respiration from ECG 23 SpO2 100 I&O: 08/22/18 08/23/18 08/24/18 06:59 06:59 06:59 Intake Total 2338 2130 Output Total 1195 1475 Balance 1143 655 Result Diagrams: 08/23/18 04:04 08/23/18 04:04 Additional Labs: Accuchecks 08/23/18 08/23/18 08/23/18 19:52 16:36 10:37 POC Glucose 118 H 105 99 08/23/18 05:38 POC Glucose 91 Phys Exam - Physical Examination Respiratory: no wheezing, no rales, no rhonchi, wheezing present, clear to auscultation bilateral Cardiovascular: RRR, no significant murmur, no rub, gallop, irregular Gastrointestinal: soft, non-tender, no distention, positive bowel sounds Musculoskeletal: no edema, pulses present, edema present Dx/Plan (1) Acute respiratory failure with hypoxia Code(s): J96.01 - ACUTE RESPIRATORY FAILURE WITH HYPOXIA Status: Acute (2) Atrial fibrillation with RVR Code(s): I48.91 - UNSPECIFIED ATRIAL FIBRILLATION Status: Acute (3) Hemothorax Code(s): J94.2 - HEMOTHORAX Status: Acute Comment: Status post VATS, chest tube. (4) Fall Code(s): W19.XXXA - UNSPECIFIED FALL, INITIAL ENCOUNTER Status: Acute Comment: Possible syncope (5) DM2 (diabetes mellitus, type 2) Status: Chronic Qualifiers: Diabetes mellitus emt intermediate insulin use: without fpc use - Plan pt had swallow eval today pending results. -: will cotninue his home medicaiton -: electrolytes replaced * . Review of Systems - Review of Systems Respiratory: negative: Cough, Dry, Shortness of Breath, Hemoptysis, SOB with Excertion, Pleuritic Pain, Sputum, Wheezing Cardiovascular: negative: chest pain, palpitations, orthopnea, paroxysmal nocturnal dyspnea, edema, light headedness, other Gastrointestinal: negative: Nausea, Vomiting, Abdominal Pain, Diarrhea, Constipation, Melena, Hematochezia, Other Genitourinary: negative: Dysuria, Frequency, Incontinence, Hematuria, Retention , Other - Medications/Allergies Allergies/Adverse Reactions: Allergies Allergy/AdvReac Type Severity Reaction Status Date / Time No Known Drug Allergies Allergy Verified 10/12/13 01:51 Medications: Current Medications Albuterol/Ipratropium (Duoneb) 3 ml NEB [id number] [facility] Last Admin: 08/23/18 18:30 Dose: Not Given Aspirin (Aspirin) 325 mg PO DAILY [facility] Last Admin: 08/23/18 08:42 Dose: 325 mg Atorvastatin Calcium (Lipitor) 10 mg PO DAILY [facility] Last Admin: 08/23/18 08:42 Dose: 10 mg Bisacodyl (Dulcolax) 5 mg PO DAILYPRN [facility] Dextrose/Water (Dextrose 50%) 25 gm SLOW IVP PRN PRN PRN Reason: Hypoglycemia Last Admin: 08/20/18 00:44 Dose: 25 gm Duloxetine HCl (Cymbalta) 60 mg PO DAILY [facility] Last Admin: 08/23/18 08:42 Dose: 60 mg Ferrous Sulfate (Feosol) 325 mg PO DAILY [facility] Last Admin: 08/23/18 08:42 Dose: 325 mg Gabapentin (Neurontin) 100 mg PO TID [facility] Last Admin: 08/23/18 17:58 Dose: 100 mg Glucagon (Glucagon) 1 mg IM PRN PRN PRN Reason: Hypoglycemia Dextrose/Water (D5w) 1,000 mls @ 0 mls/hr IV .Q0M PRN PRN Reason: Hypoglycemia Last Admin: 08/20/18 00:32 Dose: 1,000 mls Insulin Glargine 10 units/ (Miscellaneous Medication) 0.1 mls @ 0 mls/hr SC QAM [facility] Last Admin: 08/23/18 13:51 Dose: Not Given Insulin Glargine 10 units/ (Miscellaneous Medication) 0.1 mls @ 0 mls/hr SC HS [facility] Last Admin: 08/22/18 20:47 Dose: 0.1 mls Insulin Human Regular (Humulin R) 0 units SC .MODERATE SLIDING SC PRN PRN Reason: Moderate Correctional Scale Last Admin: 08/20/18 17:45 Dose: 4 unit Ketorolac Tromethamine (Toradol) 15 mg IVP Q6HR [facility] Stop: 08/25/18 12:01 Last Admin: 08/23/18 18:02 Dose: 15 mg Labetalol HCl (Normodyne) 20 mg SLOW IVP Q4H PRN PRN Reason: SBP Greater Than 180 Last Admin: 08/19/18 23:19 Dose: 20 mg Melatonin (Melatonin) 3 mg PO HS PRN PRN Reason: Insomnia Metoprolol Tartrate (Lopressor) 25 mg PO BID [facility] Miscellaneous Medication (Pharmacy To Dose) 0 each IVPB DAILYPRN PRN PRN Reason: LABS Morphine Sulfate (Morphine) 2 mg SLOW IVP Q4H PRN PRN Reason: Breakthrough Pain Last Admin: 08/21/18 22:23 Dose: 2 mg Discontinue Previous Narcotic Pain Medications And Benzodiazepines 1 each FS .ONE [facility] Stop: 09/11/18 21:59 Pantoprazole Sodium (Protonix) 40 mg IVP DAILY [facility] Last Admin: 08/23/18 13:53 Dose: 40 mg Polyethylene Glycol (Miralax) 17 gm PO DAILY [facility] Last Admin: 08/23/18 08:43 Dose: Not Given Senna/Docusate Sodium (Senokot S) 2 tab PO BID [facility] Last Admin: 08/23/18 08:43 Dose: Not Given Sodium Chloride (Flush - Normal Saline) 10 ml IVF PRN PRN PRN Reason: Saline Flush Last Admin: 08/23/18 13:53 Dose: 10 ml
[2018-08-23] MEDS: Metoprolol Tartrate 25 MG TAB PO SCH (20:55)
[2018-08-23] MEDS ORDERED: Lorazepam 2 MG/ML VIAL SLOW IVP PRN (22:38)
[2018-08-24] MEDS: Ketorolac Tromethamine 30 MG/ML VIAL IVP SCH ×4 (00:11→17:21)
[2018-08-24] MEDS ORDERED: metroNIDAZOLE 500 MG TAB PO SCH (09:00)
[2018-08-24] MEDS: Senokot S 8.6-50 MG TAB PO SCH ×2 (09:31→19:54)
[2018-08-24] MEDS: Polyethylene Glycol 3350 17 GM Packet PO SCH (09:31)
[2018-08-24] MEDS: Insulin Glargine 10 UNITS in Pre-Filled Syringe 1 EACH SC SCH ×2 (09:31→20:30)
[2018-08-24] MEDS: Pantoprazole 40 MG VIAL IVP SCH (09:47)
[2018-08-24] MEDS: Gabapentin 100 MG CAP PO SCH ×3 (10:38→19:54)
--- NOTE | 2018-08-24 10:38 | PRG ---
DATE OF SERVICE: 08/24/2018 SUBJECTIVE: Bob is an 87-year-old gentleman remains in the MICU with somewhat encephalopathic. Status post traumatic rib fractures and evacuation of his right hemothorax. OBJECTIVE: HEENT: He opens his eyes. EXTREMITIES: He moves all 4 extremities. VITAL SIGNS: Sats 100% on 2 L, temperature 97, and blood pressure 153/91. CHEST: Decreased breath sounds. No wheezing. CARDIAC: Normal S1, S2. No gallops. ABDOMEN: No masses. IMPRESSION: 1. Status post hemothorax. 2. Status post respiratory failure. 3. Severe deconditioning. PLAN: 1. Continue PT. 2. Supportive care. 3. We will follow. Job ID: [id number]
[2018-08-24] MEDS: Ferrous Sulfate 325 MG TAB PO SCH (10:54)
[2018-08-24] MEDS: DULoxetine 60 MG CAP PO SCH (10:54)
[2018-08-24] MEDS: Aspirin 325 MG TAB PO SCH (10:54)
[2018-08-24] MEDS: Atorvastatin Calcium 10 MG TAB PO SCH (10:54)
[2018-08-24] MEDS: Metoprolol Tartrate 25 MG TAB PO SCH ×3 (10:55→19:55)
--- NOTE | 2018-08-24 11:01 | PDOC.PN ---
- Subjective Encounter Start Date: 08/24/18 Encounter Start Time: 10:59 Patient seen and examined, no major issues per nursing staff overnight. - Objective Vital Signs & Weight: Vital Signs (12 hours) Temp Pulse Resp BP Pulse Ox 08/24/18 07:37 100 08/24/18 07:34 97.6 F 72 17 153/91 H 100 08/24/18 04:00 97.8 F 95 24 H 150/96 H 100 08/24/18 00:00 98.2 F 82 22 H 150/85 H 99 Weight Admit Weight 193 lb 2 oz Weight 189 lb 13.088 oz Most Recent Monitor Data Heart Rate from ECG 109 NIBP 149/94 NIBP BP-Mean 112 Respiration from ECG 23 SpO2 100 I&O: 08/23/18 08/24/18 08/25/18 06:59 06:59 06:59 Intake Total 2130 45 Output Total 1475 600 Balance 655 -555 Result Diagrams: 08/23/18 04:04 08/23/18 04:04 Additional Labs: Accuchecks 08/24/18 08/24/18 08/23/18 10:39 05:27 19:52 POC Glucose 87 107 118 H 08/23/18 16:36 POC Glucose 105 Phys Exam - Physical Examination Constitutional: NAD resting comfortably HEENT: PERRLA, moist MMs, sclera anicteric Neck: no nodes, no JVD, supple Respiratory: no wheezing, no rales, clear to auscultation bilateral Cardiovascular: no significant murmur, no rub Gastrointestinal: soft, non-tender, no distention surgical site C/D/I Musculoskeletal: pulses present, edema present (trace) Dx/Plan (1) Diabetes Code(s): E11.9 - TYPE 2 DIABETES MELLITUS WITHOUT COMPLICATIONS Status: Acute (2) Ribs, multiple fractures Code(s): S22.49XA - MULTIPLE FRACTURES OF RIBS, UNSP SIDE, INIT FOR CLOS FX Status: Acute (3) Syncope and collapse Code(s): R55 - SYNCOPE AND COLLAPSE Status: Acute Comment: Orthostatic hypotension (4) UTI (urinary tract infection) Status: Acute - Plan * continue current plan of care from a medical perspective * swallow done, awaiting detailed note * wound care per trauma team * no family at bedside
[2018-08-24] MEDS: metroNIDAZOLE 500 MG in Premix Bag 1 BAG IVPB SCH ×2 (13:20→22:28)
--- NOTE | 2018-08-24 16:31 | PRG ---
DATE OF SERVICE: 08/24/2018 SUBJECTIVE: The patient remains on the IMCU. He did well overnight, had a very restful night according to the nurses. Today has been continued drowsiness, but will wake up and follow simple commands. Denies any desire for breakfast this morning and states that his pain is controlled. PHYSICAL EXAMINATION: VITAL SIGNS: Temperature is 97.6, heart rate 72, blood pressure 153/91, respirations 17, oxygen saturations 100% on 2 L via nasal cannula. GENERAL: The patient is resting comfortably in bed. He was asleep when I arrived this morning, but he was easily awakened with verbal stimuli. He would answer simple questions, give me a thumbs up. Follows simple commands and told me that he had a good night, but was tired this morning. HEENT: Unremarkable. LUNGS: Clear to auscultation with good inspiratory and expiratory effort. HEART: Regular rate and rhythm. ABDOMEN: Soft, flat, nontender with active bowel sounds. PELVIS: Stable. EXTREMITIES: Neurovascularly intact x4. LABORATORY DATA: C difficile antigen and toxins are positive. There are no other labs or radiographs to review this morning. ASSESSMENT: 1. Status post fall. 2. Multiple right rib fractures. 3. Status post video-assisted thoracoscopic surgery procedure on right. 4. Hypertension. 5. Clostridium difficile colitis. PLAN: Plan will be to start the patient on Flagyl. Continue physical and occupational therapy and await stability enough to move to the floor. This is likely to be tomorrow. We have also asked nursing staff to ensure that the patient does get out of bed today and works with therapy. Job ID: [id number]
[2018-08-24] MEDS: Morphine 4 MG/ML VIAL SLOW IVP PRN (19:45)
[2018-08-25] MEDS: Ketorolac Tromethamine 30 MG/ML VIAL IVP SCH ×2 (00:04→05:42)
[2018-08-25] MEDS: Morphine 4 MG/ML VIAL SLOW IVP PRN (03:29)
[2018-08-25] MEDS: metroNIDAZOLE 500 MG in Premix Bag 1 BAG IVPB SCH ×3 (05:43→22:00)
[2018-08-25 06:00] LABS: #Eosinphils 0.3 thou/uL (0.0-0.7); #Lymphocytes 1.3 thou/uL (1.20-3.40); #Monocytes 0.8 thou/uL (0.11-0.59); #Neutrophils 12.5 thou/uL (1.40-6.50); %Basophils 0.1 % (0.0-1.0); %Eosinophils 2.2 % (0.0-10.0); %Lymphocytes 8.5 % (21.0-51.0); %Monocytes 5.6 % (0.0-10.0); %Neutrophils 83.7 % (42.0-75.0); Mean Corpuscular HGB CONC 32.1 g/dL (32.0-36.0); Mean Corpuscular Hemoglobin 31.1 pg (27.0-31.0); Mean Corpuscular Volume 96.7 fL (78.0-98.0); Mean Platelet Volume 6.1 fL (7.4-10.4); Platelet Count 331 thou/uL (130-400); RBC Distribution Width 12.9 % (11.5-14.5); Red Blood Cell (RBC) Count 3.23 mill/uL (4.70-6.10); White Blood Cell (WBC) Count 14.9 thou/uL (4.8-10.8)
[2018-08-25] MEDS ORDERED: traMADol HCl 50 MG TAB PO PRN (06:09)
[2018-08-25 06:20] LABS: Anion Gap 11 mmol/L (10-20); BUN (Urea Nitrogen) 16 mg/dL (8.4-25.7); Calc. Creatinine Clearance 121 mL/min (70-130); Calcium 8.4 mg/dL (7.8-10.44); Carbon Dioxide 35 mmol/L (23-31); Chloride 97 mmol/L (98-107); Estimated GFR-MDRD Greater than 90; Glucose 112 mg/dL (83-110); Magnesium 1.7 mg/dL (1.6-2.6); Phosphorus 2.5 mg/dL (2.3-4.7); Potassium 3.8 mmol/L (3.5-5.1); Sodium 139 mmol/L (136-145)
[2018-08-25] MEDS: Ibuprofen 800 MG TAB PO SCH ×3 (06:20→21:27)
[2018-08-25] MEDS: Acetaminophen 500 MG TAB PO SCH ×3 (06:20→17:18)
--- NOTE | 2018-08-25 08:45 | RAD ---
FRONTAL RADIOGRAPH CHEST: Date: 08-25-18 Comparison: 08-20-18 History: Chest trauma. VATS. FINDINGS: There is hazy increased density noted within the right hemithorax, primarily within the mid and infer ior thirds suggesting a combination of airspace disease and pleural fluid, not significantly changed when compared to the 08-20-18 examination. Multiple stable right sided rib fractures are present. Left lung appears grossly unremarkable. IMPRESSION: Stable appearance to the chest as detailed above. POS: LAKESHA
[2018-08-25] MEDS: DULoxetine 60 MG CAP PO SCH (08:48)
[2018-08-25] MEDS: Ferrous Sulfate 325 MG TAB PO SCH (08:48)
[2018-08-25] MEDS: traMADol HCl 50 MG TAB PO PRN (08:48)
[2018-08-25] MEDS: Gabapentin 100 MG CAP PO SCH ×3 (08:50→21:27)
[2018-08-25] MEDS: Enoxaparin Sodium 40 MG/0.4 ML SYRINGE SC SCH (08:50)
[2018-08-25] MEDS: Pantoprazole 40 MG VIAL IVP SCH (08:50)
[2018-08-25] MEDS: Metoprolol Tartrate 25 MG TAB PO SCH ×2 (08:50→21:27)
[2018-08-25] MEDS: Atorvastatin Calcium 10 MG TAB PO SCH (08:50)
[2018-08-25] MEDS: Aspirin 325 MG TAB PO SCH (08:50)
[2018-08-25] MEDS: Insulin Glargine 10 UNITS in Pre-Filled Syringe 1 EACH SC SCH ×2 (08:54→22:18)
[2018-08-25] MEDS: Polyethylene Glycol 3350 17 GM Packet PO SCH (09:15)
[2018-08-25] MEDS: Senokot S 8.6-50 MG TAB PO SCH ×2 (09:16→21:27)
--- NOTE | 2018-08-25 12:54 | PDOC.PN ---
- Subjective Encounter Start Date: 08/25/18 Encounter Start Time: 12:52 Patient seen and examine, no major changes in last 24 hours, no famliy at bedside. - Objective Vital Signs & Weight: Vital Signs (12 hours) Temp Pulse Pulse Pulse Resp BP BP 08/25/18 09:14 121 H 105 H 175/95 H 144/85 H 08/25/18 08:00 97.7 F 97 18 08/25/18 04:00 97.6 F 90 16 BP Pulse Ox 08/25/18 09:14 08/25/18 08:00 131/88 99 08/25/18 04:00 150/72 H 97 Weight Admit Weight 193 lb 2 oz Weight 188 lb 4.396 oz Most Recent Monitor Data Heart Rate from ECG 109 NIBP 149/94 NIBP BP-Mean 112 Respiration from ECG 23 SpO2 100 I&O: 08/24/18 08/25/18 08/26/18 06:59 06:59 06:59 Intake Total 45 460 Output Total 600 875 Balance -555 -415 Result Diagrams: 08/25/18 05:43 08/25/18 05:43 Additional Labs: Accuchecks 08/25/18 08/25/18 08/24/18 11:50 06:09 20:16 POC Glucose 140 H 110 112 H 08/24/18 16:28 POC Glucose 115 H Phys Exam - Physical Examination Constitutional: NAD HEENT: PERRLA, moist MMs, sclera anicteric Neck: no nodes, no JVD, supple Respiratory: no wheezing, no rales, no rhonchi Cardiovascular: RRR, no significant murmur, no rub Gastrointestinal: soft, non-tender, no distention Musculoskeletal: pulses present, edema present (trace) Dx/Plan (1) Diabetes Code(s): E11.9 - TYPE 2 DIABETES MELLITUS WITHOUT COMPLICATIONS Status: Acute (2) Ribs, multiple fractures Code(s): S22.49XA - MULTIPLE FRACTURES OF RIBS, UNSP SIDE, INIT FOR CLOS FX Status: Acute (3) Syncope and collapse Code(s): R55 - SYNCOPE AND COLLAPSE Status: Acute Comment: Orthostatic hypotension (4) UTI (urinary tract infection) Status: Acute - Plan * BP acceptable and blood sugars doing well * medical no changes in plan of care for now * flagyl changed to IV as patient, per nursing staff yesterday, was having some trouble swallowing * will patient remains medically stable in AM will likely sign off case, further management per primary care trauma team
[2018-08-25] MEDS ORDERED: Furosemide 20 MG/2 ML VIAL SLOW IVP SCH (14:45)
--- NOTE | 2018-08-25 15:23 | PRG ---
DATE OF SERVICE: 08/25/2018 SUBJECTIVE: Mr. Rojas is an 87-year-old man who suffered a ground level fall resulting in multiple right rib fractures. The patient developed a delayed right hemothorax, which was first treated with right tube thoracostomy followed by video-assisted thoracoscopy with evacuation of retained right hemothorax. The patient's hospitalization has been complicated by an interval acute cardiac and respiratory failure, for which the patient was transferred to the Intensive Care Unit. He is currently recovering in the Intermediate Care Unit. The patient has been treated for acute metabolic encephalopathy over the last few days. At the moment, he is awake and alert. Reports adequate pain control. He is better oriented today and less impulsive. He denies any chest pain, syncope, or dyspnea. He has better oral intake as confirmed by his nurse. He is currently being treated for Clostridium difficile colitis. Loose bowel movement is improving. Urinary output has been adequate. OBJECTIVE: VITAL SIGNS: Today, includes blood pressure 131/88, pulse 97, respiratory rate is 18, temperature 97.7 degrees Fahrenheit, and oxygen saturation 99% on 2 L by nasal cannula oxygen. HEENT: Examination reveals pupils equal, round, and reactive to light and accommodation. He has no jugular venous distention noted. HEART: Reveals regular rate and rhythm. No murmurs or gallops auscultated. LUNGS: Reveals a bibasilar rhonchi. Breathing is otherwise regular and nonlabored. ABDOMEN: Soft, nontender, nondistended. EXTREMITIES: 2+ radial and pedal pulses bilaterally. He has trace bilateral ankle edema present. NEUROLOGIC: Examination reveals no focal deficits present. MUSCULOSKELETAL: Examination reveals 4/5 muscle strength in bilateral upper and lower extremities. He has no motor or sensory deficits identified. IMAGING DATA: Chest x-ray today reveals persistent right pulmonary infiltrates and residual right pleural effusion. No pneumothorax is noted. LABORATORY STUDIES: Today includes a CBC with 14,900 white blood cells, hemoglobin and hematocrit stable at 10.0 and 31.2, respectively. Platelet count is also stable at 331,000. Metabolic profile, sodium 139, potassium is 3.8, chloride is 97, bicarb is 35, BUN is 16, creatinine is 0.54, glucose is 112, magnesium is 1.7, phosphorus is 2.5. BNP is 298.5. IMPRESSIONS: 1. Post injury day #17, status post ground level fall. 2. Multiple right rib fractures, stable. 3. Right hemothorax, postoperative day #11, status post video-assisted thoracoscopy with evacuation of retained right hemothorax. 4. Resolving acute metabolic encephalopathy. 5. Stable acute blood loss anemia. PLAN: 1. Increase activity per Physical and Occupational Therapy. 2. Resume cautious diuresis. Monitor urinary output and laboratory studies as an endpoint of diuresis. 3. Continue with pulmonary toilet and bronchodilator therapy and repeat chest x-ray within the next 72 hours or earlier should serial physical examination so indicated. 4. We will transfer the patient to general surgical floor, where his activities could be continued. 5. We will ask PM and R to evaluate the patient for possible post discharge inpatient rehabilitation. Both findings and plan discussed with the patient, who indicates understanding of information given. Answered his questions. Job ID: [id number]
--- NOTE | 2018-08-25 18:27 | PRG ---
DATE OF SERVICE: 08/25/2018 SUBJECTIVE: Cam Rojas has no complaints. OBJECTIVE: GENERAL: He is in no distress. VITAL SIGNS: He is afebrile. Heart rate 67, respiratory rate is 18, oximetry is 99 on a liter and a half, blood pressure 175/95, earlier today 155/99 this afternoon. LUNGS: Clear. HEART: Regular rhythm. ABDOMEN: Soft. IMPRESSION: 1. Status post mechanical ventilation after thoracostomy for hemothorax. 2. 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 3. Multiple right rib fractures. 4. Blood loss anemia. 5. Deconditioning. He will need evaluation for transfer to a skilled unit and probably to a jail, although his daughter is hoping he can live independently. I doubt he will live independently again. Job ID: [id number] MTDD
[2018-08-25] MEDS: acetaZOLAMIDE Sodium 500 MG in Sodium Chloride 0.9% 50 ML IVPB SCH (21:27)
[2018-08-26] MEDS: Acetaminophen 500 MG TAB PO SCH ×5 (00:05→23:42)
[2018-08-26] MEDS: traMADol HCl 50 MG TAB PO PRN (04:10)
[2018-08-26] MEDS: Ibuprofen 800 MG TAB PO SCH ×3 (04:13→21:21)
[2018-08-26] MEDS: metroNIDAZOLE 500 MG in Premix Bag 1 BAG IVPB SCH ×3 (05:56→21:20)
[2018-08-26] MEDS: DULoxetine 60 MG CAP PO SCH (08:56)
[2018-08-26] MEDS: Aspirin 325 MG TAB PO SCH (08:56)
[2018-08-26] MEDS: Senokot S 8.6-50 MG TAB PO SCH ×2 (08:56→20:37)
[2018-08-26] MEDS: Gabapentin 100 MG CAP PO SCH ×3 (08:56→20:37)
[2018-08-26] MEDS: Atorvastatin Calcium 10 MG TAB PO SCH (08:56)
[2018-08-26] MEDS: Tamsulosin HCl 0.4 MG CAP PO SCH (08:56)
[2018-08-26] MEDS: Ferrous Sulfate 325 MG TAB PO SCH (08:56)
[2018-08-26] MEDS: Furosemide 40 MG TAB PO SCH (08:56)
[2018-08-26] MEDS: Enoxaparin Sodium 40 MG/0.4 ML SYRINGE SC SCH (08:57)
[2018-08-26] MEDS: acetaZOLAMIDE Sodium 500 MG in Sodium Chloride 0.9% 50 ML IVPB SCH ×2 (08:57→20:36)
[2018-08-26] MEDS: Metoprolol Tartrate 25 MG TAB PO SCH ×2 (08:57→20:36)
[2018-08-26] MEDS: Polyethylene Glycol 3350 17 GM Packet PO SCH (08:57)
[2018-08-26] MEDS: Insulin Glargine 10 UNITS in Pre-Filled Syringe 1 EACH SC SCH ×2 (08:57→20:43)
[2018-08-26 10:07] LABS: Anion Gap 13 mmol/L (10-20); BUN (Urea Nitrogen) 11 mg/dL (8.4-25.7); Calc. Creatinine Clearance 111 mL/min (70-130); Calcium 8.7 mg/dL (7.8-10.44); Carbon Dioxide 30 mmol/L (23-31); Chloride 97 mmol/L (98-107); Estimated GFR-MDRD Greater than 90; Glucose 81 mg/dL (83-110); Magnesium 1.6 mg/dL (1.6-2.6); Phosphorus 2.6 mg/dL (2.3-4.7); Potassium 3.4 mmol/L (3.5-5.1); Sodium 137 mmol/L (136-145)
--- NOTE | 2018-08-26 11:04 | PRG ---
DATE OF SERVICE: 08/26/2018 SUBJECTIVE: Mr. Rojas is an 87-year-old man, who sustained multiple right rib fractures following a ground-level fall. He is awake and alert today. He denies any dyspnea, syncope, or chest pain. The audible wheeze yesterday has subsided. He tolerates oral intake, although still with poor appetite. Urinary output over the last 24 hours has been quite adequate with gentle forced diuresis. OBJECTIVE: VITAL SIGNS: This morning include blood pressure 152/87, pulse 69, respiratory rate is 19, and temperature 96.8 degrees Fahrenheit, oxygen saturation is 100% on 2 L by nasal cannula oxygen. HEENT: Reveals pupils are equal, round, reactive to light and accommodation. He has no jugular venous distention noted. HEART: Reveals regular rate and rhythm. No murmurs or gallops auscultated. LUNGS: Clear to auscultation bilaterally. Breathing, regular and nonlabored. ABDOMEN: Soft, nontender, nondistended. Bowel sounds in all four quadrants appear normoactive. Loose bowel movements subsided. EXTREMITIES: Reveal 2+ radial and pedal pulses bilaterally. NEUROLOGIC: Reveals no focal deficits present. IMPRESSION: 1. Resolving acute pulmonary insufficiency. 2. Stable right blunt chest trauma. 3. Resolving metabolic encephalopathy. 4. Deconditioning following a blunt chest trauma in an elderly patient. PLAN: 1. Increase activity per Physical and Occupational Therapy. 2. The patient is certainly hemodynamically stable for transfer to general surgical floor. We will continue with his treatment. Pending discharge to inpatient rehabilitation versus halfway facility. 3. Both findings and plan discussed with the patient, who indicated understanding of information given. 4. Answered his questions. Job ID: [id number]
--- NOTE | 2018-08-26 14:24 | PDOC.PN ---
- Subjective Encounter Start Date: 08/26/18 Encounter Start Time: 14:23 Patient seen and examined, no major events in the past 24 hours. - Objective Vital Signs & Weight: Vital Signs (12 hours) Temp Pulse Resp BP Pulse Ox 08/26/18 13:04 80 14 08/26/18 11:14 96 08/26/18 10:45 97.4 F L 84 20 153/85 H 96 08/26/18 08:00 96.8 F L 69 19 152/87 H 100 08/26/18 07:46 96 08/26/18 06:14 91 16 99 08/26/18 04:00 97.6 F 83 22 H 171/96 H 97 Weight Admit Weight 193 lb 2 oz Weight 185 lb 3.013 oz Most Recent Monitor Data Heart Rate from ECG 109 NIBP 149/94 NIBP BP-Mean 112 Respiration from ECG 23 SpO2 100 I&O: 08/25/18 08/26/18 08/27/18 06:59 06:59 06:59 Intake Total 460 1360 Output Total 875 3300 Balance -415 -1940 Result Diagrams: 08/25/18 05:43 08/26/18 09:36 Additional Labs: Accuchecks 08/26/18 08/26/18 08/25/18 12:13 05:46 20:35 POC Glucose 88 80 102 08/25/18 16:55 POC Glucose 105 Phys Exam - Physical Examination Constitutional: NAD HEENT: PERRLA, moist MMs, sclera anicteric Neck: no nodes, no JVD, supple Respiratory: no wheezing, no rales, no rhonchi Cardiovascular: RRR, no significant murmur, no rub Gastrointestinal: soft, non-tender, no distention Dx/Plan (1) Diabetes Code(s): E11.9 - TYPE 2 DIABETES MELLITUS WITHOUT COMPLICATIONS Status: Acute (2) Ribs, multiple fractures Code(s): S22.49XA - MULTIPLE FRACTURES OF RIBS, UNSP SIDE, INIT FOR CLOS FX Status: Acute (3) Syncope and collapse Code(s): R55 - SYNCOPE AND COLLAPSE Status: Acute Comment: Orthostatic hypotension (4) UTI (urinary tract infection) Status: Acute - Plan * cont current plan of care * BP and glucose stable * no changes from a medical perspective, at this point in time medicine team will sign off, thank you for the consultation, please recall as needed.
[2018-08-26] MEDS ORDERED: Potassium Phosphate 15 MMOL, Magnesium Sulfate 2 GM in Sodium Chloride 0.9% 250 ML 250 ML IVPB SCH (15:30)
[2018-08-26] MEDS ORDERED: Magnesium Sulfate 2 GM in Sodium Chloride 0.9% 100 ML IVPB SCH (15:30)
--- NOTE | 2018-08-26 16:25 | PRG ---
DATE OF SERVICE: 08/26/2018 SUBJECTIVE: Mr. Rojas remained stable. Still mildly encephalopathic. OBJECTIVE: VITAL SIGNS: He is afebrile. Heart rate is in 80s, respiratory rate 17, oximetry is 96% on 2 L, and blood pressure 153/85. LUNGS: Unchanged. HEART: Unchanged. ABDOMEN: Unchanged. He is moving out of intermediate care to the surgery unit. We will sign off. Job ID: [id number]
[2018-08-26] MEDS: metFORMIN 500 MG TAB PO SCH (17:15)
[2018-08-27] MEDS: metroNIDAZOLE 500 MG in Premix Bag 1 BAG IVPB SCH ×2 (05:22→12:52)
[2018-08-27] MEDS: Acetaminophen 500 MG TAB PO SCH ×2 (05:25→12:51)
[2018-08-27] MEDS: Ibuprofen 800 MG TAB PO SCH (05:25)
[2018-08-27] MEDS: Dextrose 50% Abboject 50 ML SYRINGE SLOW IVP PRN (06:23)
[2018-08-27 07:21] LABS: Anion Gap 10 mmol/L (10-20); BUN (Urea Nitrogen) 13 mg/dL (8.4-25.7); Calc. Creatinine Clearance 99 mL/min (70-130); Calcium 8.3 mg/dL (7.8-10.44); Carbon Dioxide 29 mmol/L (23-31); Chloride 99 mmol/L (98-107); Estimated GFR-MDRD Greater than 90; Glucose 111 mg/dL (83-110); Magnesium 1.9 mg/dL (1.6-2.6); Potassium 3.3 mmol/L (3.5-5.1); Sodium 135 mmol/L (136-145)
[2018-08-27] MEDS: Furosemide 40 MG TAB PO SCH (07:32)
--- NOTE | 2018-08-27 08:05 | RAD ---
PORTABLE CHEST: HISTORY: Followup pneumonia. COMPARISON: 08/25/2018 study. FINDINGS: Heart size appears enlarged. Aorta is tortuous. Pleural and parenchymal lung changes in the right l kae are stable. Left lower lobe interstitial changes are also stable. IMPRESSION: Stable exam. POS: [facility]
[2018-08-27] MEDS ORDERED: Potassium Chloride 40 MEQ, Magnesium Sulfate 2 GM in Sodium Chloride 0.9% 250 ML 250 ML IVPB SCH (08:30)
[2018-08-27] MEDS ORDERED: Ibuprofen 100 MG/5 ML UDCUP PO PRN (09:18)
[2018-08-27 09:23] LABS: #Eosinphils 0.3 thou/uL (0.0-0.7); #Lymphocytes 0.9 thou/uL (1.20-3.40); #Monocytes 0.6 thou/uL (0.11-0.59); #Neutrophils 8.3 thou/uL (1.40-6.50); %Basophils 0.1 % (0.0-1.0); %Eosinophils 2.5 % (0.0-10.0); %Lymphocytes 8.7 % (21.0-51.0); %Monocytes 5.9 % (0.0-10.0); %Neutrophils 82.8 % (42.0-75.0); Hemoglobin 10.2 g/dL (14.0-18.0); Mean Corpuscular HGB CONC 31.6 g/dL (32.0-36.0); Mean Corpuscular Hemoglobin 30.8 pg (27.0-31.0); Mean Corpuscular Volume 97.7 fL (78.0-98.0); Mean Platelet Volume 6.7 fL (7.4-10.4); Platelet Count 304 thou/uL (130-400); RBC Distribution Width 13.2 % (11.5-14.5)
[2018-08-27] MEDS: Insulin Glargine 10 UNITS in Pre-Filled Syringe 1 EACH SC SCH (09:40)
[2018-08-27] MEDS: Polyethylene Glycol 3350 17 GM Packet PO SCH (09:43)
[2018-08-27] MEDS: Senokot S 8.6-50 MG TAB PO SCH (09:44)
[2018-08-27] MEDS: Aspirin 325 MG TAB PO SCH (09:44)
[2018-08-27] MEDS: acetaZOLAMIDE Sodium 500 MG in Sodium Chloride 0.9% 50 ML IVPB SCH (09:44)
[2018-08-27] MEDS: Enoxaparin Sodium 40 MG/0.4 ML SYRINGE SC SCH (09:44)
[2018-08-27] MEDS: DULoxetine 60 MG CAP PO SCH (09:45)
[2018-08-27] MEDS: Tamsulosin HCl 0.4 MG CAP PO SCH (09:45)
[2018-08-27] MEDS: Gabapentin 100 MG CAP PO SCH (09:45)
[2018-08-27] MEDS: Metoprolol Tartrate 25 MG TAB PO SCH (09:45)
[2018-08-27] MEDS: metFORMIN 500 MG TAB PO SCH (09:45)
[2018-08-27] MEDS: Ferrous Sulfate 325 MG TAB PO SCH (09:45)
[2018-08-27] MEDS: Atorvastatin Calcium 10 MG TAB PO SCH (09:45)
--- NOTE | 2018-08-27 11:13 | CT ---
CT CHEST WITHOUT CONTRAST: HISTORY: Pain. Fractures. COMPARISON: Multiple prior radiographs and CT examinations. FINDINGS: There is a large right extrapleural hematoma with retracting clot. There is dense material within th is hematoma. There is subsequent mass effect on the distal right mainstem bronchus and right lower lobe bronchi. There is compressive atelectasis in the right lower lobe. There is also some apical c apping of a small volume of extrapleural hematoma. The left lobe is relatively clear. There are multiple further displaced right-sided rib fractures wi th fracture of the right 1st, 2nd, 3rd, 4th, 5th, 6th, 7th, 8th, 9th, 10th, 11th, and 12th ribs. The re are fractures of the 4th, 5th, 6th, 7th, 8th, 9th, 10th, 11th, and 12th rib necks, making all thos e fractures segmental fractures. There are fracture of the right 1st, 2nd, 3rd, 4th, 5th, and 6th co stochondral cartilage. There are fractures of the left 2nd, 3rd, 4th, 5th, and 6th costochondral car tilage. There are fractures of the left anterior 1st, 2nd, 3rd, 4th, 5th, and 6th ribs. There is also a capsular hematoma of the left kidney with numerous segmental right-sided rib fracture s. IMPRESSION: Numerous left-sided rib fractures, as described above, as well as bilateral costochondral fractures. Large extrapleural hematoma on the right, with mass effect upon the right lower lobe bronchi which co ntains extensive debris. POS: [facility]
--- NOTE | 2018-08-27 11:18 | PRG ---
DATE OF SERVICE: 08/27/2018 SUBJECTIVE: Mr. Rojas is an 87-year-old man, who sustained multiple right rib fractures from a ground level fall. The patient is sleepy this morning, but awakens to voice. He moves all extremities and follows commands. He has poor appetite and denies any dysphagia, dyspnea, or syncope. His pain appears to be adequately controlled. Urinary output has been adequate. He still has an indwelling Hernandez catheter, which was placed 2 days ago for urinary retention. Chest x-ray, which was obtained today revealed persistent right pulmonary opacification. No pneumothorax is noted. OBJECTIVE: VITAL SIGNS: Today include blood pressure 100/53, pulse 81, respirations 20, temperature 97.7 degrees Fahrenheit, oxygen saturation is 96% on 1 L nasal cannula oxygen. HEENT: Reveals pupils are equal, round, reactive to light and accommodation. NECK: He has no jugular venous distention noted. HEART: Reveals regular rate and rhythm. No murmurs or gallops auscultated. LUNGS: Clear to auscultation bilaterally. Breathing, regular and unlabored. ABDOMEN: Soft, nontender, nondistended. EXTREMITIES: Reveal 2+ radial and pedal pulses bilaterally. No ankle edema is present. NEUROLOGIC: Reveals no focal deficits present. LABORATORY DATA: Laboratory findingstoday include a CBC with 10,000 white blood cells, hemoglobin and hematocrit 10.2 and 32.2 respectively, platelet count is 304,000. Metabolic profile: Sodium 135, potassium 3.3, chloride is 99, bicarb is 29, BUN 13, creatinine 0.63, glucose is 111, magnesium is 1.9, phosphorus is 3.0. IMPRESSION: 1. Post injury day #19, status post ground-level fall with multiple right rib fractures. 2. Right hemothorax. Postop day #11, status post video-assisted thoracoscopy and evacuation of right hemothorax. 3. Recurrent right pulmonary opacification likely recurrent right pleural effusion. 4. Stable acute blood loss anemia. 5. Debility in an elderly patient post blunt chest trauma. PLAN: 1. Increase activity per Physical and Occupational Therapy. 2. We will obtain a CT scan of the chest to evaluate the right pulmonary opacification. If large right pleural effusion is confirmed, we will consider placement of a right thoracostomy tube. 3. We will minimize narcotics. 4. We will start the patient on Megace to hopefully improve his appetite and encourage oral intake as tolerated. Job ID: [id number]
[2018-08-27 12:54] VITALS: BMI 25.1
[2018-08-27 16:17] VITALS: BP 120/79; TEMP 97.5
[2018-08-28] MEDS ORDERED: Megestrol Acetate 40 MG TAB PO SCH (09:00)
--- NOTE | 2018-08-30 04:45 | DIS ---
DATE OF ADMISSION: 08/08/2018 DATE OF DISCHARGE: 08/27/2018 TRAUMA SURGEON: Dr. Larkin. DISCHARGING SURGEON: Dr. Alcazar. CONSULTS: 1. Cardiovascular Surgery. 2. Hospital Medicine. 3. Pulmonology. PROCEDURES: 1. On 08/08/2018, chest x-ray impression; cardiomegaly with enlarged cardiomediastinal silhouette. 2. Carotid Doppler study on 08/08/2018, impression; no evidence of hemodynamically significant stenosis. 3. Chest thorax CTA, impression on 08/08/2018; no pulmonary thromboembolism, consolidations at bilateral lower lobes, right greater than left. 4. Chest x-ray on 08/09/2018, impression; overall stable, poor inspiratory effort. Small bilateral pleural effusions and some patchy parenchymal changes, stable from prior study. 5. Chest x-ray on 08/10/2018, similar exam from previous. No pneumothorax layering right effusion. 6. Chest CT on 08/11/2018, impression; interval development of multiple right- sided rib fractures, some of which are displaced, associated with mild extrapleural hematoma. Persistent and increased right pleural fluid, which does not appear to represent blood products. Persistent right lower lobe parenchymal consolidation with evidence of material within the right lower lobe bronchus that likely reflects aspiration. 7. Chest x-ray on 08/11/2018, impression; persistent overall stable pleural and parenchymal opacity changes in the right mid and lower lung zones. No significant pneumothorax. 8. Chest x-ray on 08/12/2018 shows placement of endotracheal tube and IJ central line placement. Development of opacification of the right hemothorax. 9. On 08/13/2018, central line placement, right internal jugular. 10. On 08/13/2018, arterial line placement. 11. On 08/13/2018, chest x-ray, no significant change from the previous day. 12. On 08/14/2018, right-sided chest tube placed 36-Danish with immediate 2000 mL of old dark blood. 13. On 08/14/2018 chest x-ray, bilateral pleural effusions, right greater than left with persistent nonspecific hazy density throughout the right hemothorax, which suggest a combination of nonspecific pleural and parenchymal opacity. 14. On 08/14/2018, right thoracoscopy with evacuation of hematoma done by Dr. Bass, a 32 chest tube was placed. 15. Chest x-ray on 08/16/2018, no significant interval change seen since the previous day's exam. 16. On 08/17/2018 chest x-ray, no significant interval change seen again. 17. On 08/18/2018, chest x-ray, stable appearing chest, continued short-term followup. 18. On 08/19/2018 chest x-ray, unchanged appearance of the chest. 19. On 08/20/2018 chest x-ray, overall stable appearing chest. Persistent abnormal opacity to the right lung with minimal right-sided volume loss, although there is some rotation to the right. 20. On 08/25/2018 chest x-ray, stable appearance to the chest as hazy and increased density noted within the right hemothorax. 21. On 08/27/2018 chest x-ray, stable. 22. On 08/27/2018 CT chest, impression; numerous left-sided rib fractures as well as bilateral costal nodule fractures. Large extrapleural hematoma on the right with mass effect upon the right lower lobe bronchi, which contains extensive debris. PRIMARY DIAGNOSES: 1. Ground level fall, status post syncopal event. 2. Rib fractures, 6, 7, 8, 9, and 10. 3. Pulmonary contusion. SECONDARY DIAGNOSES: 1. Cardiac arrest with return of spontaneous circulation. 2. Diabetes. 3. Hypertension. 4. Respiratory failure. DISCHARGE MEDICATIONS: 1. Tylenol 1000 mg q.6 hours p.o. 2. Aspirin 325 mg p.o. daily. 3. Lipitor 10 mg p.o. daily. 4. Dulcolax 5 mg p.o. daily p.r.n. 5. Cymbalta 60 mg p.o. daily. 6. Ferrous sulfate 325 daily. 7. Florinef 0.1 mg p.o. daily. 8. Megace 40 mg p.o. daily. 9. Melatonin 3 mg p.o. at bedtime. 10. Metformin 500 mg p.o. b.i.d. with meals. 11. Metoprolol 25 mg p.o. daily. 12. Midodrine HCl 10 mg p.o. three times a day. 13. Omeprazole 20 mg daily. 14. MiraLAX 17 g p.o. daily. 15. Zoloft 50 mg p.o. daily. 16. Flomax 0.4 mg p.o. daily. There are no medications that were discontinued. HISTORY OF PRESENT STAY AND HOSPITAL COURSE: This is an 87-year-old gentleman who presented as a transfer from an outside facility, status post fall and syncopal event. The patient reported that he became dizzy and fell, which was his second fall secondary to syncopal event. The patient was found to have multiple right-sided rib fractures with hypoxemia. Therefore, he was transferred to [facility] for further treatment and care. During the hospital course, the patient developed right pleural effusion. The patient was watched on the floor for several day. On 08/12/2018, the patient went into cardiopulmonary arrest. The patient's initial rhythm was pulseless electrical activity. The patient was intubated and chest compressions and 3 rounds of epi was given and a return of spontaneous respirations were obtained. The patient was moved to the ICU and managed, remained on the ventilator longer than expected as he was difficult to wean. The patient had a right chest tube placed which immediately put out 2000 ml old appearing blood. The patient then had a VATS procedure the next day. The patient was eventually weaned off the vent, moved back to the surgical floor, was started with PT/OT. The patient was neurologically intact and remained hemodynamically stable on the floor. On the day of discharge, the patient was seen and evaluated by Dr. Alcazar. The patient or family had no complaints at the present time. The patient's vitals were stable on the day of discharge and exam was unremarkable including cardiopulmonary and GI exam. The patient was deemed stable for discharge to inpatient rehab. DISPOSITION: Stable. DISCHARGE INSTRUCTIONS: 1. Location: Inpatient rehab. 2. Diet: Regular diet. 3. Activity: As tolerated. 4. Followup: Follow up with Dr. Bass as directed. Follow up with Dr. Alcazar in 14 days. Needs a chest x-ray and CBC before appointment. Job ID: [id number] [facility]
== END 2018-08-27 16:40 | DRG 163 ==
LOC: ERS 01:32 → 2NO 03:19 → SURG A 04:22 → CCU 08-12 21:29 → IMCU/EMU 08-21 18:45 → SURG B 08-26 11:25 → SURG A 08-27 06:49
PROVIDERS: ADMIT Surgery; ATTEND Surgery
PROC: 03HY32Z Insertion of Monitoring Device into Upper Artery, Percutaneous Approach (ICD-10-PCS; 2018-08-12)
PROC: 05HM33Z Insertion of Infusion Device into Right Internal Jugular Vein, Percutaneous Approach (ICD-10-PCS; 2018-08-12)
PROC: 0BJ08ZZ Inspection of Tracheobronchial Tree, Via Natural or Artificial Opening Endoscopic (ICD-10-PCS; 2018-08-13)
PROC: 5A12012 Performance of Cardiac Output, Single, Manual (ICD-10-PCS; 2018-08-13)
PROC: 0BH17EZ Insertion of Endotracheal Airway into Trachea, Via Natural or Artificial Opening (ICD-10-PCS; 2018-08-13)
PROC: 5A1955Z Respiratory Ventilation, Greater than 96 Consecutive Hours (ICD-10-PCS; 2018-08-13)
PROC: 30233N1 Transfusion of Nonautologous Red Blood Cells into Peripheral Vein, Percutaneous Approach (ICD-10-PCS; 2018-08-13)
PROC: 0BCN4ZZ Extirpation of Matter from Right Pleura, Percutaneous Endoscopic Approach (ICD-10-PCS; principal; 2018-08-14)
PROC: 0W9930Z Drainage of Right Pleural Cavity with Drainage Device, Percutaneous Approach (ICD-10-PCS; 2018-08-14)
DX: S22.41XA Multiple fractures of ribs, right side, initial encounter for closed fracture (principal); S27.1XXA Traumatic hemothorax, initial encounter; I46.9 Cardiac arrest, cause unspecified; J96.01 Acute respiratory failure with hypoxia; R57.1 Hypovolemic shock; D62 Acute posthemorrhagic anemia; A04.72 Enterocolitis due to Clostridium difficile, not specified as recurrent; S27.321A Contusion of lung, unilateral, initial encounter; E11.9 Type 2 diabetes mellitus without complications; I10 Essential (primary) hypertension; N40.0 Benign prostatic hyperplasia without lower urinary tract symptoms; F03.90 Unspecified dementia, unspecified severity, without behavioral disturbance, psychotic disturbance, mood disturbance, and anxiety; F32.9 Major depressive disorder, single episode, unspecified; E83.39 Other disorders of phosphorus metabolism; E87.6 Hypokalemia; I48.91 Unspecified atrial fibrillation; G89.29 Other chronic pain; Z79.84 Long term (current) use of oral hypoglycemic drugs; Z79.82 Long term (current) use of aspirin; Z79.899 Other long term (current) drug therapy; Z96.653 Presence of artificial knee joint, bilateral; Z96.641 Presence of right artificial hip joint; W18.30XA Fall on same level, unspecified, initial encounter
CPT/HCPCS: 36415; 36416; 36430; 51701; 71045; 71250; 71275; 74230; 80048; 80202; 81001; 81003; 81015; 82533; 82553; 82805; 83605; 83735; 83880; 84100; 84484; 85007; 85025; 85027; 85379; 85610; 85730; 86850; 86900; 86901; 87040; 87070; 87086; 87205; 87324; 87449; 87899; 93005; 93010; 93306; 93880; 94002; 94003; 94640; 94660; 94760; C9113; G0390; G8978-GP-CK; G8978-GP-CN; G8979-GP-CJ; G8979-GP-CK; G8987-GO-CL; G8988-GO-CI; G8988-GO-CJ; G8996-GN-CJ; G8996-GN-CK; G8996-GN-CM; G8997-GN-CI; G8997-GN-CJ; G8997-GN-CL; J0131; J0171; J0295; J0360; J0696; J1120; J1160; J1630; J1650; J1815; J1885; J1940; J2060; J2270; J2370; J2543; J2704; J2920; J3010; J3370; J3475; J3480; J7050; J7120; J7620; P9016; Q9967

== ENCOUNTER 2018-08-30 11:31 | Observation (INO) | payer MEDICARE, BC ==
[2018-08-30 11:52] LABS: Bilirubin Moderate (Negative); Blood, Urine Large (Negative); Glucose, Urine (Dipstick) Negative (Negative); Leukocyte Moderate (Negative); Nitrite Negative (Negative); Protein, Urine (Dipstick) 100 mg/dL (Neg-Trace); Urobilinogen 0.2 mg/dL (0.2-1.0); pH, Urine 6.5 (5.0-9.0)
[2018-08-30 11:53] LABS: Clarity CLOUDY (Clear)
[2018-08-30 11:53] LABS: Actual Bicarbonate (HCO3a) 30.7 mEq/L (22-28); Analyzer IN Cardio ER; Base Excess (BEa) 4.9 mEq/L (-2.0 to +3.0); CO2 Tension 51.1 mmHg (35.0-45.0); Calcium, Ionized 1.17 mmol/L (1.12-1.30); Carboxyhemoglobin (COHb) 0.6 gm% (0.0-3.0); Hemoglobin (Hb) 10.2 g/dL (14.0-18.0); O2 Tension (PaO2) 122.2 mmHg (> 60.0)
[2018-08-30 11:54] LABS: Specific Gravity, Urine 1.028 (1.002-1.036)
[2018-08-30 11:54] LABS: Puncture Site LRA
[2018-08-30 11:59] LABS: Bacteria/HPF 3+ HPF (None Seen); Hyaline Casts/LPF NONE SEEN LPF (0-3 Hyaline); Squamous Epithelial 0-3 HPF (0-3); Yeast-All Forms 3+ HPF (None Seen)
[2018-08-30 12:13] LABS: #Eosinphils 0.1 thou/uL (0.0-0.7); #Lymphocytes 0.9 thou/uL (1.20-3.40); #Monocytes 0.9 thou/uL (0.11-0.59); #Neutrophils 10.1 thou/uL (1.40-6.50); %Basophils 0.1 % (0.0-1.0); %Eosinophils 0.4 % (0.0-10.0); %Lymphocytes 7.1 % (21.0-51.0); %Monocytes 7.2 % (0.0-10.0); %Neutrophils 85.1 % (42.0-75.0); Hemoglobin 9.8 g/dL (14.0-18.0); Mean Corpuscular HGB CONC 32.4 g/dL (32.0-36.0); Mean Corpuscular Hemoglobin 31.3 pg (27.0-31.0); Mean Corpuscular Volume 96.6 fL (78.0-98.0); Platelet Count 272 thou/uL (130-400); RBC Distribution Width 13.9 % (11.5-14.5); Red Blood Cell (RBC) Count 3.13 mill/uL (4.70-6.10); White Blood Cell (WBC) Count 11.9 thou/uL (4.8-10.8)
[2018-08-30 12:19] LABS: ALT (SGPT) 19 U/L (8-55); AST (SGOT) 27 U/L (5-34); Alkaline Phosphatase 123 U/L (40-150); Anion Gap 13 mmol/L (10-20); BUN (Urea Nitrogen) 25 mg/dL (8.4-25.7); Bilirubin, Total 0.9 mg/dL (0.2-1.2); CK (CPK) 91 U/L (30-200); Calc. Creatinine Clearance 0 mL/min (70-130); Calcium 8.6 mg/dL (7.8-10.44); Carbon Dioxide 28 mmol/L (23-31); Chloride 100 mmol/L (98-107); Estimated GFR-MDRD Greater than 90; Globulin 2.7 g/dL (2.4-3.5); Glucose 147 mg/dL (83-110); Potassium 3.8 mmol/L (3.5-5.1); Protein, Total 5.7 g/dL (5.8-8.1); Sodium 137 mmol/L (136-145)
[2018-08-30 12:20] LABS: INR-International Normal Ratio 1.2; Prothrombin Time 15.1 SEC (12.0-14.7)
[2018-08-30 12:21] LABS: PTT 32.3 SEC (22.9-36.1)
[2018-08-30 12:22] LABS: D-Dimer Test 2.14 *mcg/mL (0.27-0.43)
[2018-08-30] MEDS ORDERED: cefTRIAXone\\ROCEPHIN 2 GM VIAL ONE (12:25)
--- NOTE | 2018-08-30 13:28 | CT ---
CTA THORAX UTILIZING IV CONTRAST AND 3D REFORMATTED IMAGING: Date: 08/30/18 INDICATPION: Elevated D-Dimer with dyspnea. FINDINGS: There is a loculated, moderate to large, right-sided pleural effusion. There is subsegmental volume l oss within the right middle lobe, left lower lobe, and right lower lobe. Motion artifact slightly wells its image detail of the lobar and segmental branches of both lower lobes. No definite central pulmona ry embolus is evident. There are scattered vascular calcifications involving the coronary arteries an d thoracic aorta. Gallbladder is surgically absent. The remaining visualized upper abdomen is unremar kable appearing. Small pleural based calcification seen within the posterior costophrenic angle which may reflect sequelae of prior trauma or infection. Bilateral rib fractures are similar appearing. IMPRESSION: 1. Stable loculated right-sided pleural effusion. 2. No definite central pulmonary embolus evident. Respiratory motion artifact slightly limits image detail of the segmental and lobar arteries of both lower lobes. 3. Stable bilateral rib fractures. POS: [facility]
[2018-08-30] MEDS ORDERED: Dextrose 5% in Water 1,000 ML IV PRN (14:23)
[2018-08-30] MEDS ORDERED: Ondansetron PF 4 MG/2 ML Vial IVP PRN (14:23)
[2018-08-30] MEDS ORDERED: Dextrose 50% Abboject 50 ML SYRINGE SLOW IVP PRN (14:23)
[2018-08-30] MEDS ORDERED: traMADol HCl 50 MG TAB PO PRN (14:37)
[2018-08-30] MEDS ORDERED: Ibuprofen 800 MG TAB PO SCH (14:45)
[2018-08-30] MEDS: Acetaminophen 500 MG TAB PO SCH ×2 (20:52→23:53)
--- NOTE | 2018-08-30 21:14 | HP ---
HISTORY OF PRESENT ILLNESS: Cam Rojas Junior presents to the emergency room, transferred from the rehab center because of decreased mental status and low blood pressure. The patient has had some problems with swallowing, has been on special diet with solids and has been unable to tolerate adequate liquids. IV fluids were discontinued. The patient became dehydrated, lethargic. The patient was discharged from the hospital without a Hernandez, but a Hernandez has been placed in the interim. In the emergency room, he was evaluated, his specific gravity of urine was 1028. He had a large amount of hematuria greater than 50, too numerous to count pyuria, nitrite was negative, 3+ bacteria with the urine from a Hernandez catheter. The mean of this is uncertain. The patient is felt to have a possible UTI and he has been given intravenous Levaquin. Urine culture has been submitted. The patient's white count is 11, hemoglobin 9.8. Basic metabolic profile essentially unremarkable. Chest x-ray reveals no significant change from the previous chest x-ray with opacification of the right hemothorax after a VATS procedure performed by Dr. Bass on 08/14/2018, right thoracoscopy and evacuation of hematoma. A chest thorax CTA was obtained on this hospital visit revealing stable loculated right-sided pleural effusion, no pulmonary emboli, stable rib fractures. The patient is being admitted for evaluation, observation, and expect transfer back to rehab tomorrow, we expect to hydrate him. Aisha Bedolla, nurse practitioner, has seen him and I agree with her dictation and plan for intravenous antibiotics for 5 days, hydration, and transfer back to rehab tomorrow. Physical therapy and occupational therapy will be continued. He will be gently hydrated. His special diet will be reordered. The patient is alert, responsive, when I do ask him questions, he does respond appropriately, talks intelligently and is oriented. Job ID: [id number]
--- NOTE | 2018-08-30 21:20 | HP ---
TRAUMA ATTENDING: Owne Frazier MD. HISTORY OF PRESENT ILLNESS: This is an 87-year-old male who was previously a trauma patient who was discharged 4 days ago to inpatient rehab. The patient was admitted on 08/08/2018 status post ground level fall with syncope. The patient sustained right-sided rib fractures with hypoxia. The patient was admitted with rib fractures 6, 7, 8, 9, and 10 and pulmonary contusion. The patient had respiratory cardiac arrest on the floor, was intubated and placed in the ICU. The patient remained on the ventilator and had difficulty weaning. The patient ended up getting a right-sided chest tube and a VATS procedure during his hospital stay. The patient then improved and was discharged to the rehab. He returns today with altered mental status, dehydration. The patient was worked up in the emergency room and was requested for admission by Dr. Reyes, ER physician. PAST MEDICAL HISTORY: Multiple syncopal events, BPH, diabetes, hypertension, chronic pain, status post spinal cord stimulator, depression. PAST SURGICAL HISTORY: Bilateral knee replacements, right hip replacement, spinal decompression, and spinal stimulator placement. SOCIAL HISTORY: Denies alcohol, tobacco, or illicit drug use. REVIEW OF SYSTEMS: A 10-point review of systems was performed and negative except as indicated in the HPI. PHYSICAL EXAMINATION: VITAL SIGNS: Blood pressure 147/89, respirations 21, temperature 97.4, pulse 91, 94% on room air. GENERAL: The patient is asleep with deep mouth breathing. Arouses to voice. Falls back asleep easily. HEENT: Normocephalic, atraumatic. Pupils equal and reactive at 3 mm. Trachea is midline. There is no JVD noted. Mucous membranes dry. RESPIRATORY: No wheezing noted. The patient with slightly diminished breath sounds on the right lower lobe. No distress noted. Chest rise seems to be more prominent on the left than right. Respirations nonlabored. CARDIOVASCULAR: Regular rate and rhythm. No murmurs noted. No pedal edema. GENITOURINARY: Hernandez in place with minimal dark output. MUSCULOSKELETAL: The patient moves all extremities. Positive distal pulses. Normal sensation. NEUROLOGIC: The patient follows commands. Opens eyes to voice and oriented to place. SKIN: Warm, dry, and pink. LABORATORY DATA: WBC 11.9, RBC 3.13, hemoglobin 9.8, hematocrit 30.2, platelets 272,000. PT 15.1, INR 1.2, APTT 32.3. D-dimer 2.14. ABGs, pH 7.40, pCO2 of 51.1, base excess 4.9, bicarb 30.2, PO2 of 122.2. Sodium 137, potassium 3.8, chloride 100, carbon dioxide 28, anion gap 13, BUN 25, creatinine 0.59, estimated GFR 90, glucose 147, lactic acid 1.2, calcium 8.6, total bilirubin 0.9, AST 27, ALT 19, alkaline phos 123. CK 91, troponin 0.018. BNP 132.2. Serum protein 5.7, albumin 3.0, globulin 2.7. Urine, trace ketones, large blood, negative nitrites, moderate leukocyte esterase, wbc's greater than 50, bacteria 3+, yeast 3+. DIAGNOSTICS: Chest, thorax CTA. Impression; stable loculated right-sided pleural effusion. No definite central pulmonary embolus is evident. Stable bilateral rib fractures. ASSESSMENT: 1. Status post ground level fall with bilateral rib fractures and pulmonary contusion. 2. Dehydration. 3. Urinary tract infection. 4. History of diabetes and hypertension. PLAN: We will admit the patient to observation unit on observation status to the surgical floor. We will hydrate the patient and place patient on maintenance fluids. We will repeat labs in the morning. We will place the patient on empiric antibiotics for UTI associated with a Hernandez catheter. We will wait for urine cultures. We will have PT, OT continue treatment. Possibly send back to rehab tomorrow if the patient is more alert and the patient was discussed with the attending surgeon. Job ID: [id number]
[2018-08-30] MEDS: Ibuprofen 800 MG TAB PO SCH (21:46)
[2018-08-30] MEDS: Melatonin 3 MG TAB PO PRN (21:47)
[2018-08-30] MEDS: Sodium Chloride 0.9% 1,000 ML IV SCH (21:47)
[2018-08-30 22:33] VITALS: BMI 23.6
[2018-08-31] MEDS: Sodium Chloride 0.9% 1,000 ML IV SCH ×3 (00:23→15:48)
[2018-08-31] MEDS: Acetaminophen 500 MG TAB PO SCH ×4 (05:24→23:38)
[2018-08-31] MEDS: Ibuprofen 800 MG TAB PO SCH ×3 (05:24→21:25)
[2018-08-31 07:15] LABS: Anion Gap 14 mmol/L (10-20); BUN (Urea Nitrogen) 18 mg/dL (8.4-25.7); Calc. Creatinine Clearance 110 mL/min (70-130); Calcium 8.3 mg/dL (7.8-10.44); Carbon Dioxide 27 mmol/L (23-31); Chloride 101 mmol/L (98-107); Estimated GFR-MDRD Greater than 90; Glucose 153 mg/dL (83-110); Potassium 3.5 mmol/L (3.5-5.1); Sodium 138 mmol/L (136-145)
[2018-08-31] MEDS: Insulin Regular 300 UNITS/3 ML VIAL SC PRN ×2 (12:05→18:01)
[2018-08-31] MEDS ORDERED: Melatonin 3 MG TAB PO PRN (14:27)
[2018-08-31] MEDS: Midodrine HCl 5 MG TAB PO SCH ×2 (15:48→21:25)
[2018-08-31] MEDS ORDERED: DULoxetine 60 MG CAP PO SCH (16:30)
--- NOTE | 2018-08-31 18:29 | PRG ---
DATE OF SERVICE: SUBJECTIVE: The patient remains on the surgical floor. There were no issues overnight. Friend of the family reports the patient got a few hours of sleep and then was restless the remainder of the night. He was about to have breakfast, but has not worked with Physical or Occupational Therapy when we saw him. The patient denies any significant pain at this time, states that it is controlled. PHYSICAL EXAMINATION: VITAL SIGNS: Temperature is 98.2, heart rate 98, blood pressure 130/97, respirations 20, oxygen saturation is 97% on 1 L via nasal cannula. GENERAL: The patient is resting in bed. He is awake and verbally responsive. He appears less alert than what I have seen him in the past, but this is not uncommon for this patient to wax and wane like this. It may also be related to his fatigue from not getting solid rest again being here. HEENT: Unremarkable. LUNGS: Clear bilaterally, somewhat diminished on the right. HEART: Regular rate and rhythm. ABDOMEN: Soft, flat, nontender with active bowel sounds. PELVIS: Stable. EXTREMITIES: Neurovascularly intact x4. LABORATORY FINDINGS: Sodium 138, potassium 3.5, chloride 101, CO2 of 27, BUN 18, creatinine 0.55, glucose 153. There are no radiographs reviewed this morning. ASSESSMENT: 1. Status post ground level fall with readmission from rehab for suspected UTI and dehydration, status post fall resulting in right rib fractures. 2. Status post video-assisted thoracoscopic surgery procedure on prior admission. 3. Significant deconditioning. PLAN: Plan will be to continue supportive care, Physical and Occupational Therapy, and discuss with family again placement. The patient may require a residential facility until he is strong enough for rehab, but this will be discussed tomorrow with the family. The patient was evaluated by Dr. Alcazar during rounds this morning. Job ID: [id number]
[2018-08-31] MEDS: Famotidine 20 MG TAB PO SCH (21:25)
[2018-08-31] MEDS: Melatonin 3 MG TAB PO PRN (22:01)
[2018-09-01] MEDS: Sodium Chloride 0.9% 1,000 ML IV SCH ×3 (01:28→15:28)
[2018-09-01] MEDS: HYDROcodone/Acetaminophen 5/325 mg Tablet PO PRN ×2 (05:37→21:23)
[2018-09-01] MEDS: Ibuprofen 800 MG TAB PO SCH ×3 (05:38→21:30)
[2018-09-01] MEDS: Acetaminophen 500 MG TAB PO SCH ×4 (05:38→23:17)
[2018-09-01] MEDS: Aspirin 325 MG TAB PO SCH (09:26)
[2018-09-01] MEDS: Midodrine HCl 5 MG TAB PO SCH ×3 (09:27→21:30)
[2018-09-01] MEDS: DULoxetine 60 MG CAP PO SCH (09:27)
[2018-09-01] MEDS: Atorvastatin Calcium 10 MG TAB PO SCH (09:27)
[2018-09-01] MEDS: Tamsulosin HCl 0.4 MG CAP PO SCH (09:28)
[2018-09-01] MEDS: Enoxaparin Sodium 40 MG/0.4 ML SYRINGE SC SCH (09:28)
[2018-09-01] MEDS: Famotidine 20 MG TAB PO SCH ×2 (09:28→21:31)
[2018-09-01] MEDS: Megestrol Acetate 40 MG TAB PO SCH (09:28)
--- NOTE | 2018-09-01 10:05 | PRG ---
DATE OF SERVICE: 09/01/2018 SUBJECTIVE: Mr. Rojas is an 87-year-old man, who is status post ground level fall, sustaining multiple rib fractures as well as a complex right hemothorax. The patient was readmitted with altered mental status. Urinary cultures were significant for Pseudomonas aeruginosa. The patient has been on antibiotic therapy. Currently, he is awake and alert. He had difficulty sleeping last night according to nursing. This morning, he has been quite asleep, but easily awakens. He had good breakfast, consuming 100% of what was provided. Urinary output has been adequate. OBJECTIVE: VITAL SIGNS: This morning includes blood pressure 133/78, pulse is 103, respiratory rate is 20, temperature is 97.8 degrees Fahrenheit, and oxygen saturation is 95% on 2 L by nasal cannula oxygen. HEENT: Reveals normocephalic and atraumatic. Pupils are equal, round, and reactive to light and accommodation. NECK: He has no jugular venous distention noted. HEART: Reveals regular rate and rhythm. No murmurs or gallops auscultated. LUNGS: Clear to auscultation bilaterally. Breathing regular, nonlabored. ABDOMEN: Soft, nontender, and nondistended. EXTREMITIES: Reveals 2+ radial and pedal pulses bilaterally. No ankle edema is present. MUSCULOSKELETAL: Reveals 4/5 muscle strength bilateral upper and lower extremities. The patient has no motor or sensory deficits identified. NEUROLOGIC: Reveals no focal deficits present. IMAGING: I did review the CT scan of the chest on this admission, which reveals stable pleural and extrapleural right hemothorax. PLAN: 1. Plan is to continue with physical and occupational therapy. 2. Continue with antibiotic therapy for the urinary tract infection. 3. We will continue with pulmonary toilet. There is no acute surgical indication for this patient at this time as the patient has had 1 video-assisted thoracoscopy. I have discussed with the patient's daughter and power of ip technology transactions attorney, Larissa by telephone conversation. I have informed her of her fathers frailty. It is my recommendation that we give consideration to placement at a [facility] facility, where physical and occupation therapy will proceed at a slower pace and for prolonged period. The patient's daughter will discuss this with the rest of the family members and make decisions as to where we proceed from here. Job ID: [id number]
[2018-09-01] MEDS: hydrALAZINE 20 MG/ML VIAL SLOW IVP PRN ×2 (11:34→23:19)
[2018-09-01] MEDS: Insulin Regular 300 UNITS/3 ML VIAL SC PRN (16:03)
--- NOTE | 2018-09-01 19:23 | PRG ---
DATE OF SERVICE: 09/01/2018 SUBJECTIVE: The patient remains on the surgical floor. He got better rest last night. He was changed from Ultram to [place] 5/325, which seemed to control his pain better. The patient this morning is alert and looks somewhat more restful than yesterday. The family member states that he does appear to be doing better this morning and had a full breakfast. OBJECTIVE: VITAL SIGNS: Temperature is 97.6, heart rate 104, blood pressure 157/84, respirations 20, oxygen saturation 94% on room air. GENERAL: The patient is resting comfortably in bed. He is awake and will converse appropriately, though he does seem to be still a little bit drowsy. HEENT: Unremarkable. LUNGS: Clear to auscultation with moderate inspiratory and expiratory effort. HEART: Regular rate and rhythm. ABDOMEN: Soft, flat, nontender with active bowel sounds. EXTREMITIES: Neurovascularly intact x4. DIAGNOSTIC STUDIES: There are no labs or radiographs to review this morning. ASSESSMENT: 1. Status post ground level fall with readmission. 2. Urinary tract infection, under treatment. IV Levaquin will be switched to p.o. Levaquin. Continue supportive care. The placement discussion was had with the family and it was decided that the patient will go home and the family will obtain a 24-hour nursing care for the patient. Case workers will assist with this. Dr. Alcazar was in agreement with this plan. The patient's CT was reviewed by Dr. Alcazar radiology and Dr. 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 Job ID: [id number]
[2018-09-01] MEDS: Melatonin 3 MG TAB PO PRN (21:23)
[2018-09-02] MEDS: Sodium Chloride 0.9% 1,000 ML IV SCH ×3 (03:37→17:47)
[2018-09-02] MEDS: Ibuprofen 800 MG TAB PO SCH ×3 (07:40→21:40)
[2018-09-02] MEDS: Acetaminophen 500 MG TAB PO SCH ×3 (07:41→18:12)
[2018-09-02] MEDS: DULoxetine 60 MG CAP PO SCH (08:50)
[2018-09-02] MEDS: Aspirin 325 MG TAB PO SCH (08:50)
[2018-09-02] MEDS: Famotidine 20 MG TAB PO SCH ×2 (08:50→21:40)
[2018-09-02] MEDS: Atorvastatin Calcium 10 MG TAB PO SCH (08:50)
[2018-09-02] MEDS: Enoxaparin Sodium 40 MG/0.4 ML SYRINGE SC SCH (08:50)
[2018-09-02] MEDS: Tamsulosin HCl 0.4 MG CAP PO SCH (08:50)
[2018-09-02] MEDS: Megestrol Acetate 40 MG TAB PO SCH (08:51)
[2018-09-02] MEDS: Midodrine HCl 5 MG TAB PO SCH ×3 (08:54→21:37)
--- NOTE | 2018-09-02 12:50 | PRG ---
DATE OF SERVICE: 09/02/2018 SUBJECTIVE: The patient remains on the surgical floor. He reportedly had a better night last night and had better pain control after being switched from Ultram and [place] 5/325. He had a good breakfast again this morning and we are waiting for him to work with Physical and Occupational therapy today. Currently, the plan remains that the patient will go home with home health and nursing care. This is being arranged between the yoke setter and family and last word was the patient will be discharged home tomorrow. PHYSICAL EXAMINATION: VITAL SIGNS: Temperature is 98.0, heart rate 96, blood pressure 151/73, respirations 18, oxygen saturation is 94% on 3 L via nasal cannula. GENERAL: The patient is resting in bed. He was asleep when we entered the room, but was easily awakened with verbal stimuli. The patient appears to converse appropriately. HEENT: Unremarkable. LUNGS: Clear to auscultation with moderate inspiratory and expiratory effort. HEART: Regular rate and rhythm. ABDOMEN: Soft, flat, and nontender with active bowel sounds. EXTREMITIES: Neurovascularly intact x4. ASSESSMENT: 1. Status post fall with readmission from rehabilitation. 2. Urinary tract infection, under treatment. PLAN: Will be to continue supportive care and await final placement decision. We will also arrange for home O2 for the patient since he still has requirement here in the hospital. The patient was evaluated this morning with Dr. Alcazar. Job ID: [id number]
[2018-09-03] MEDS: hydrALAZINE 20 MG/ML VIAL SLOW IVP PRN (01:02)
[2018-09-03] MEDS: Acetaminophen 500 MG TAB PO SCH ×2 (01:05→06:21)
[2018-09-03] MEDS: Melatonin 3 MG TAB PO PRN (01:05)
[2018-09-03] MEDS: Sodium Chloride 0.9% 1,000 ML IV SCH (01:45)
[2018-09-03] MEDS: Ibuprofen 800 MG TAB PO SCH (06:21)
[2018-09-03] MEDS: Famotidine 20 MG TAB PO SCH (08:59)
[2018-09-03 09:00] VITALS: BP 167/57; TEMP 97.4
[2018-09-03] MEDS: Aspirin 325 MG TAB PO SCH (09:00)
[2018-09-03] MEDS: Midodrine HCl 5 MG TAB PO SCH (09:00)
[2018-09-03] MEDS: DULoxetine 60 MG CAP PO SCH (09:00)
[2018-09-03] MEDS: Atorvastatin Calcium 10 MG TAB PO SCH (09:00)
[2018-09-03] MEDS: Tamsulosin HCl 0.4 MG CAP PO SCH (09:00)
[2018-09-03] MEDS: Megestrol Acetate 40 MG TAB PO SCH (09:00)
[2018-09-03] MEDS: Enoxaparin Sodium 40 MG/0.4 ML SYRINGE SC SCH (09:07)
== END 2018-09-03 10:20 | disposition home or self-care (01) ==
LOC: ERS 11:31 → ERHOLD 13:32 → SURG A 19:38
PROVIDERS: ADMIT Specialist; ATTEND Specialist
DX: N39.0 Urinary tract infection, site not specified (principal); B96.5 Pseudomonas (aeruginosa) (mallei) (pseudomallei) as the cause of diseases classified elsewhere; E86.0 Dehydration; J90 Pleural effusion, not elsewhere classified; J94.2 Hemothorax; S22.43XA Multiple fractures of ribs, bilateral, initial encounter for closed fracture; I10 Essential (primary) hypertension; E11.9 Type 2 diabetes mellitus without complications; N40.0 Benign prostatic hyperplasia without lower urinary tract symptoms; F32.9 Major depressive disorder, single episode, unspecified; Z96.653 Presence of artificial knee joint, bilateral; Z96.641 Presence of right artificial hip joint; Z79.2 Long term (current) use of antibiotics; Z79.84 Long term (current) use of oral hypoglycemic drugs; Z79.82 Long term (current) use of aspirin; Z79.899 Other long term (current) drug therapy; Z79.52 Long term (current) use of systemic steroids; Z98.890 Other specified postprocedural states
CPT/HCPCS: 71275; 80048; 80053; 82274; 82550; 82805; 82962 ×5; 83605; 83880; 84484; 85025; 85379; 85610; 85730; 87040; 87086; 93005 ×2; 94640 ×5; 94760; 96361 ×4; 96365; 96366 ×2; 96367; 96368; 96372 ×3; 96375 ×2; 96376 ×2; 97116; 97139 ×5; 97530; 99285; G0378 ×3; 36415; 36416; 81015; 93010; J0360; J0696; J1650; J1815; J1956; J3370; J7620; S0179

== ENCOUNTER 2018-09-16 13:53 | Emergency (ER) | payer MEDICARE, BC ==
[2018-09-16 15:13] LABS: #Basophils 0.1 thou/uL (0.0-0.2); #Lymphocytes 1.1 thou/uL (1.20-3.40); #Monocytes 0.7 thou/uL (0.11-0.59); #Neutrophils 7.3 thou/uL (1.40-6.50); %Basophils 0.8 % (0.0-1.0); %Eosinophils 0.4 % (0.0-10.0); %Lymphocytes 11.7 % (21.0-51.0); %Monocytes 7.8 % (0.0-10.0); %Neutrophils 79.2 % (42.0-75.0); Hemoglobin 9.7 g/dL (14.0-18.0); Mean Corpuscular HGB CONC 31.1 g/dL (32.0-36.0); Mean Corpuscular Hemoglobin 30.5 pg (27.0-31.0); Mean Corpuscular Volume 97.9 fL (78.0-98.0); Mean Platelet Volume 6.1 fL (7.4-10.4); Platelet Count 260 thou/uL (130-400); RBC Distribution Width 14.9 % (11.5-14.5); White Blood Cell (WBC) Count 9.2 thou/uL (4.8-10.8)
[2018-09-16 15:33] LABS: ALT (SGPT) 14 U/L (8-55); AST (SGOT) 25 U/L (5-34); Alkaline Phosphatase 85 U/L (40-150); Anion Gap 18 mmol/L (10-20); BUN (Urea Nitrogen) 17 mg/dL (8.4-25.7); Bilirubin, Total 0.7 mg/dL (0.2-1.2); Calc. Creatinine Clearance 0 mL/min (70-130); Calcium 7.9 mg/dL (7.8-10.44); Carbon Dioxide 34 mmol/L (23-31); Chloride 91 mmol/L (98-107); Estimated GFR-MDRD Greater than 90; Globulin 2.9 g/dL (2.4-3.5); Glucose 118 mg/dL (83-110); Potassium 3.3 mmol/L (3.5-5.1); Protein, Total 5.9 g/dL (5.8-8.1); Sodium 140 mmol/L (136-145)
[2018-09-16 15:49] LABS: Bilirubin Small (Negative); Blood, Urine Small (Negative); Glucose, Urine (Dipstick) Negative (Negative); Leukocyte Small (Negative); Nitrite Negative (Negative); Protein, Urine (Dipstick) 100 mg/dL (Neg-Trace); Urobilinogen 0.2 mg/dL (0.2-1.0); pH, Urine 6.5 (5.0-9.0)
[2018-09-16 15:50] LABS: Clarity Hazy (Clear)
[2018-09-16 15:59] LABS: Bacteria/HPF 4+ HPF (None Seen); Squamous Epithelial 0-3 HPF (0-3)
[2018-09-16] MEDS ORDERED: Sodium Chloride 0.9% 100 ML ONE (16:05)
[2018-09-16] MEDS ORDERED: cefTRIAXone\\ROCEPHIN 2 GM VIAL ONE (16:05)
== END 2018-09-16 16:50 | disposition home or self-care (01) ==
LOC: SCSER 13:53
DX: N30.00 Acute cystitis without hematuria (principal); I48.2 Chronic atrial fibrillation; D64.9 Anemia, unspecified; N40.0 Benign prostatic hyperplasia without lower urinary tract symptoms; E11.9 Type 2 diabetes mellitus without complications; Z79.84 Long term (current) use of oral hypoglycemic drugs; Z79.899 Other long term (current) drug therapy
CPT/HCPCS: 51701; 80053; 81003; 81015; 83605; 85025; 87077; 87086; 87186; 96365; J0696; J7050

== ENCOUNTER 2021-09-17 13:36 | Observation (INO) | payer OTHER, MEDICARE, BC ==
[2021-09-17 13:58] LABS: #Lymphocytes 1.7 thou/uL (1.20-3.40); #Monocytes 0.6 thou/uL (0.11-0.59); #Neutrophils 2.7 thou/uL (1.40-6.50); %Eosinophils 0.9 % (0.0-10.0); %Lymphocytes 33.5 % (21.0-51.0); %Monocytes 11.1 % (0.0-10.0); %Neutrophils 54.4 % (42.0-75.0); Hemoglobin 12.2 g/dL (14.0-18.0); Mean Corpuscular HGB CONC 33.3 g/dL (32.0-36.0); Mean Corpuscular Hemoglobin 31.8 pg (27.0-31.0); Mean Corpuscular Volume 95.5 fL (78.0-98.0); Mean Platelet Volume 7.2 fL (7.4-10.4); Platelet Count 218 thou/uL (130-400); RBC Distribution Width 12.3 % (11.5-14.5); Red Blood Cell (RBC) Count 3.83 mill/uL (4.70-6.10); White Blood Cell (WBC) Count 4.9 thou/uL (4.8-10.8)
[2021-09-17 14:11] LABS: INR-International Normal Ratio 1.2; PTT 31.6 sec (22.9-36.1)
[2021-09-17 14:21] LABS: ALT (SGPT) 15 U/L (8-55); AST (SGOT) 33 U/L (5-34); Albumin 3.2 g/dL (3.4-4.8); Alkaline Phosphatase 49 U/L (40-110); Anion Gap 15 mmol/L (10-20); BUN (Urea Nitrogen) 10 mg/dL (8.4-25.7); Bilirubin, Total 0.4 mg/dL (0.2-1.2); Calc. Creatinine Clearance 0 mL/min (70-130); Calcium 8.9 mg/dL (7.8-10.44); Carbon Dioxide 24 mmol/L (23-31); Chloride 98 mmol/L (98-107); Globulin 4.2 g/dL (2.4-3.5); Glucose 138 mg/dL (83-110); Protein, Total 7.4 g/dL (5.8-8.1); Sodium 132 mmol/L (136-145)
[2021-09-17] MEDS ORDERED: Aspirin 325 MG TAB ONE (15:35)
[2021-09-17] MEDS ORDERED: Melatonin 3 MG TAB PO PRN (17:00)
[2021-09-17 17:46] LABS: Bilirubin Negative (Negative); Blood, Urine 1+ (Negative); Clarity Turbid (Clear); Glucose, Urine (Dipstick) Normal (Negative); Ketone, Urine Negative (Negative); Leukocyte 500 Leu/uL (Negative); Nitrite Negative (Negative); Protein, Urine (Dipstick) 50 mg/dL (Neg-Trace); Squamous Epithelial 0-3 HPF (0-3); Urobilinogen Normal mg/dL (Less than 2); WBC/HPF Greater than 50 HPF (0-3)
[2021-09-17 18:04] LABS: Bacteria/HPF 4+ HPF (None Seen); Yeast-Hyphae 2+ HPF (None Seen)
[2021-09-17 18:05] LABS: RBC/HPF 0-3 HPF (0-3); Yeast-Budding 1+ HPF (None Seen)
[2021-09-17] MEDS ORDERED: Aspirin 81 mg Enteric Coated Tablet PO SCH (21:00)
[2021-09-17] MEDS ORDERED: Atorvastatin Calcium 40 MG TAB PO SCH (21:00)
[2021-09-17 22:24] VITALS: BMI 23.9
[2021-09-18] MEDS ORDERED: Acetaminophen 500 MG TAB ONE ×3 (00:51→11:09)
[2021-09-18] MEDS: Acetaminophen 500 MG TAB PO SCH ×2 (03:02→11:14)
[2021-09-18] MEDS ORDERED: Tamsulosin HCl 0.4 MG CAP PO SCH (09:00)
[2021-09-18] MEDS ORDERED: Aspirin 81 mg Enteric Coated Tablet PO SCH (09:00)
[2021-09-18] MEDS ORDERED: Aspirin 81 mg Enteric Coated Tablet ONE (11:09)
[2021-09-18 11:36] VITALS: BP 131/72; TEMP 98.3
[2021-09-18] MEDS ORDERED: Enoxaparin Sodium 40 MG/0.4 ML SYRINGE SC SCH (12:30)
[2021-09-19] MEDS ORDERED: Aspirin 81 mg Enteric Coated Tablet PO SCH (09:00)
[2021-09-19] MEDS ORDERED: Enoxaparin Sodium 40 MG/0.4 ML SYRINGE SC SCH (09:00)
== END 2021-09-18 11:36 | disposition home or self-care (01) ==
LOC: ERS 13:36 → ERHOLD 15:30
PROVIDERS: ADMIT Internal Medicine; ATTEND Internal Medicine
DX: G45.9 Transient cerebral ischemic attack, unspecified (principal); I48.0 Paroxysmal atrial fibrillation; F03.90 Unspecified dementia, unspecified severity, without behavioral disturbance, psychotic disturbance, mood disturbance, and anxiety; N40.0 Benign prostatic hyperplasia without lower urinary tract symptoms; E11.9 Type 2 diabetes mellitus without complications; I08.1 Rheumatic disorders of both mitral and tricuspid valves; Z86.16 Personal history of COVID-19; Z86.73 Personal history of transient ischemic attack (TIA), and cerebral infarction without residual deficits; Z79.01 Long term (current) use of anticoagulants; Z79.82 Long term (current) use of aspirin; Z79.84 Long term (current) use of oral hypoglycemic drugs; Z79.899 Other long term (current) drug therapy; W01.0XXA Fall on same level from slipping, tripping and stumbling without subsequent striking against object, initial encounter; Y92.009 Unspecified place in unspecified non-institutional (private) residence as the place of occurrence of the external cause
CPT/HCPCS: 70450; 70496; 70498; 71045; 80053; 82962; 84484; 85025; 85610; 85730; 93005; 93306; 97139 ×2; 99285; G0378 ×2; 36416; 81003; 81015

== ENCOUNTER 2021-12-19 16:06 | Inpatient (IN) | payer MEDICARE, BC ==
[2021-12-19 18:16] VITALS: BMI 23.6
[2021-12-19] MEDS ORDERED: Ondansetron PF 4 MG/2 ML Vial IVP PRN (18:36)
[2021-12-19] MEDS ORDERED: Senokot S 8.6-50 MG TAB PO PRN (18:36)
[2021-12-19] MEDS ORDERED: Bisacodyl 5 MG TAB PO PRN (18:36)
[2021-12-19] MEDS ORDERED: Dextrose 50% Abboject 50 ML SYRINGE SLOW IVP PRN (18:44)
[2021-12-19] MEDS ORDERED: HumaLOG 300 UNITS/3 ML VIAL SC PRN ×2 (18:44)
[2021-12-19] MEDS ORDERED: Dextrose 5% in Water 1,000 ML IV PRN (18:44)
[2021-12-19] MEDS ORDERED: Pantoprazole 40 MG VIAL IVP SCH (20:00)
[2021-12-19] MEDS: Sodium Chloride 0.9% 1,000 ML IV SCH (20:06)
[2021-12-19] MEDS: Atorvastatin Calcium 10 MG TAB PO SCH (20:08)
[2021-12-19] MEDS: Midodrine HCl 5 MG TAB PO SCH (20:08)
[2021-12-19 22:14] LABS: Bilirubin Negative (Negative); Blood, Urine Trace (Negative); Clarity Turbid (Clear); Glucose, Urine (Dipstick) Normal (Negative); Ketone, Urine Negative (Negative); Leukocyte 500 Leu/uL (Negative); Nitrite Negative (Negative); Protein, Urine (Dipstick) 10 mg/dL (Neg-Trace); Renal Epithelial 0-3 HPF (None Seen); Specific Gravity, Urine 1.008 (1.002-1.036); Squamous Epithelial 0-3 HPF (0-3); Urobilinogen Normal mg/dL (Less than 2); WBC/HPF Greater than 50 HPF (0-3)
[2021-12-19 22:27] LABS: Bacteria/HPF 2+ HPF (None Seen)
[2021-12-19 22:29] LABS: Urine Culture Reflex Yes Yes; Yeast-Budding Rare HPF (None Seen)
[2021-12-19 23:20] LABS: SARS-CoV-2 PCR by NAA Not Detected (NotDetected)
[2021-12-20 04:33] LABS: #Eosinphils 0.2 thou/uL (0.0-0.7); #Lymphocytes 1.5 thou/uL (1.20-3.40); #Monocytes 0.7 thou/uL (0.11-0.59); #Neutrophils 4.2 thou/uL (1.40-6.50); %Basophils 0.5 % (0.0-1.0); %Eosinophils 3.6 % (0.0-10.0); %Lymphocytes 22.1 % (21.0-51.0); %Neutrophils 63.8 % (42.0-75.0); Hemoglobin 10.7 g/dL (14.0-18.0); Mean Corpuscular HGB CONC 33.1 g/dL (32.0-36.0); Mean Corpuscular Hemoglobin 33.2 pg (27.0-31.0); Mean Platelet Volume 6.9 fL (7.4-10.4); Platelet Count 195 thou/uL (130-400); RBC Distribution Width 12.3 % (11.5-14.5); Red Blood Cell (RBC) Count 3.22 mill/uL (4.70-6.10); White Blood Cell (WBC) Count 6.6 thou/uL (4.8-10.8)
[2021-12-20 05:09] LABS: ALT (SGPT) 13 U/L (8-55); AST (SGOT) 19 U/L (5-34); Albumin 3.6 g/dL (3.4-4.8); Alkaline Phosphatase 41 U/L (40-110); Anion Gap 11 mmol/L (10-20); BUN (Urea Nitrogen) 10 mg/dL (8.4-25.7); Bilirubin, Total 0.5 mg/dL (0.2-1.2); Calc. Creatinine Clearance 66 mL/min (70-130); Calcium 9.5 mg/dL (7.8-10.44); Carbon Dioxide 29 mmol/L (23-31); Chloride 100 mmol/L (98-107); Globulin 3.1 g/dL (2.4-3.5); Glucose 76 mg/dL (83-110); Potassium 4.1 mmol/L (3.5-5.1); Protein, Total 6.7 g/dL (5.8-8.1); Sodium 136 mmol/L (136-145)
[2021-12-20] MEDS: Amiodarone 200 MG TAB PO SCH (10:01)
[2021-12-20] MEDS: Sodium Chloride 0.9% 1,000 ML IV SCH ×2 (10:01→19:57)
[2021-12-20] MEDS: DULoxetine 60 MG CAP PO SCH (10:02)
[2021-12-20] MEDS: Midodrine HCl 5 MG TAB PO SCH ×3 (10:02→19:53)
[2021-12-20] MEDS: Fludrocortisone Acetate 0.1 MG TAB PO SCH (10:02)
[2021-12-20] MEDS: Ferrous Sulfate 325 MG TAB PO SCH (10:02)
[2021-12-20] MEDS: Donepezil HCl 10 MG TAB PO SCH (10:02)
[2021-12-20] MEDS: Donepezil HCl 5 MG TAB PO SCH (10:02)
[2021-12-20] MEDS: Multivitamin W/ Minerals 1 TAB PO SCH (10:03)
[2021-12-20] MEDS: Tamsulosin HCl 0.4 MG CAP PO SCH (10:03)
[2021-12-20] MEDS: Pantoprazole 40 MG VIAL IVP SCH (10:03)
[2021-12-20] MEDS: Acetaminophen 325 MG TAB PO PRN (10:04)
[2021-12-20] MEDS: cefTRIAXone\\ROCEPHIN 1 GM in Sodium Chloride 0.9% 100 ML IVPB SCH (17:12)
[2021-12-20] MEDS: Atorvastatin Calcium 10 MG TAB PO SCH (19:53)
[2021-12-21 04:46] LABS: #Eosinphils 0.3 thou/uL (0.0-0.7); #Lymphocytes 1.8 thou/uL (1.20-3.40); #Monocytes 0.5 thou/uL (0.11-0.59); #Neutrophils 3.1 thou/uL (1.40-6.50); %Basophils 0.5 % (0.0-1.0); %Eosinophils 5.7 % (0.0-10.0); %Monocytes 9.4 % (0.0-10.0); %Neutrophils 53.4 % (42.0-75.0); Hemoglobin 9.7 g/dL (14.0-18.0); Mean Corpuscular HGB CONC 32.5 g/dL (32.0-36.0); Mean Platelet Volume 7.1 fL (7.4-10.4); Platelet Count 189 thou/uL (130-400); RBC Distribution Width 12.5 % (11.5-14.5); Red Blood Cell (RBC) Count 2.95 mill/uL (4.70-6.10); White Blood Cell (WBC) Count 5.8 thou/uL (4.8-10.8)
[2021-12-21 05:03] LABS: Anion Gap 12 mmol/L (10-20); BUN (Urea Nitrogen) 8 mg/dL (8.4-25.7); Calc. Creatinine Clearance 75 mL/min (70-130); Calcium 8.4 mg/dL (7.8-10.44); Carbon Dioxide 26 mmol/L (23-31); Chloride 103 mmol/L (98-107); Glucose 87 mg/dL (83-110); Potassium 3.8 mmol/L (3.5-5.1); Sodium 137 mmol/L (136-145)
[2021-12-21] MEDS: Pantoprazole 40 MG VIAL IVP SCH (09:03)
[2021-12-21] MEDS: Donepezil HCl 10 MG TAB PO SCH (09:04)
[2021-12-21] MEDS: Ferrous Sulfate 325 MG TAB PO SCH (09:05)
[2021-12-21] MEDS: Tamsulosin HCl 0.4 MG CAP PO SCH (09:05)
[2021-12-21] MEDS: Fludrocortisone Acetate 0.1 MG TAB PO SCH (09:05)
[2021-12-21] MEDS: Midodrine HCl 5 MG TAB PO SCH ×3 (09:05→22:01)
[2021-12-21] MEDS: Donepezil HCl 5 MG TAB PO SCH (09:05)
[2021-12-21] MEDS: Amiodarone 200 MG TAB PO SCH (09:06)
[2021-12-21] MEDS: Multivitamin W/ Minerals 1 TAB PO SCH (09:06)
[2021-12-21] MEDS: DULoxetine 60 MG CAP PO SCH (09:06)
[2021-12-21] MEDS: Acetaminophen 325 MG TAB PO PRN (09:09)
[2021-12-21] MEDS: Sodium Chloride 0.9% 1,000 ML IV SCH (09:13)
[2021-12-21] MEDS: cefTRIAXone\\ROCEPHIN 1 GM in Sodium Chloride 0.9% 100 ML IVPB SCH (16:52)
[2021-12-21] MEDS: Atorvastatin Calcium 10 MG TAB PO SCH (20:32)
[2021-12-22 04:19] LABS: #Eosinphils 0.4 thou/uL (0.0-0.7); #Lymphocytes 1.5 thou/uL (1.20-3.40); #Monocytes 0.6 thou/uL (0.11-0.59); #Neutrophils 3.9 thou/uL (1.40-6.50); %Basophils 0.5 % (0.0-1.0); %Monocytes 9.3 % (0.0-10.0); %Neutrophils 61.2 % (42.0-75.0); Hemoglobin 10.2 g/dL (14.0-18.0); Mean Corpuscular HGB CONC 32.6 g/dL (32.0-36.0); Mean Corpuscular Hemoglobin 33.1 pg (27.0-31.0); Mean Platelet Volume 6.6 fL (7.4-10.4); Platelet Count 178 thou/uL (130-400); RBC Distribution Width 12.4 % (11.5-14.5); Red Blood Cell (RBC) Count 3.09 mill/uL (4.70-6.10); White Blood Cell (WBC) Count 6.3 thou/uL (4.8-10.8)
[2021-12-22 04:41] LABS: Anion Gap 11 mmol/L (10-20); BUN (Urea Nitrogen) 6 mg/dL (8.4-25.7); Calc. Creatinine Clearance 75 mL/min (70-130); Calcium 8.5 mg/dL (7.8-10.44); Carbon Dioxide 28 mmol/L (23-31); Chloride 102 mmol/L (98-107); Glucose 98 mg/dL (83-110); Potassium 3.8 mmol/L (3.5-5.1); Sodium 137 mmol/L (136-145)
[2021-12-22] MEDS: Sodium Chloride 0.9% 1,000 ML IV SCH ×2 (05:58→16:43)
[2021-12-22] MEDS: Fludrocortisone Acetate 0.1 MG TAB PO SCH (10:43)
[2021-12-22] MEDS: Donepezil HCl 10 MG TAB PO SCH (10:43)
[2021-12-22] MEDS: Pantoprazole 40 MG VIAL IVP SCH (10:43)
[2021-12-22] MEDS: DULoxetine 60 MG CAP PO SCH (10:44)
[2021-12-22] MEDS: Multivitamin W/ Minerals 1 TAB PO SCH (10:44)
[2021-12-22] MEDS: Ferrous Sulfate 325 MG TAB PO SCH (10:44)
[2021-12-22] MEDS: Tamsulosin HCl 0.4 MG CAP PO SCH (10:44)
[2021-12-22] MEDS: Donepezil HCl 5 MG TAB PO SCH (10:44)
[2021-12-22] MEDS: Midodrine HCl 5 MG TAB PO SCH ×3 (10:46→20:42)
[2021-12-22] MEDS: Amiodarone 200 MG TAB PO SCH (10:47)
[2021-12-22] MEDS: cefTRIAXone\\ROCEPHIN 1 GM in Sodium Chloride 0.9% 100 ML IVPB SCH (16:43)
[2021-12-22] MEDS: Atorvastatin Calcium 10 MG TAB PO SCH (20:42)
[2021-12-23 04:50] LABS: #Eosinphils 0.4 thou/uL (0.0-0.7); #Lymphocytes 1.6 thou/uL (1.20-3.40); #Monocytes 0.5 thou/uL (0.11-0.59); %Basophils 0.3 % (0.0-1.0); %Eosinophils 7.3 % (0.0-10.0); %Lymphocytes 29.2 % (21.0-51.0); %Monocytes 8.9 % (0.0-10.0); %Neutrophils 54.3 % (42.0-75.0); Mean Corpuscular HGB CONC 31.8 g/dL (32.0-36.0); Mean Corpuscular Hemoglobin 32.5 pg (27.0-31.0); Mean Platelet Volume 7.1 fL (7.4-10.4); Platelet Count 186 thou/uL (130-400); RBC Distribution Width 12.4 % (11.5-14.5); Red Blood Cell (RBC) Count 3.07 mill/uL (4.70-6.10); White Blood Cell (WBC) Count 5.5 thou/uL (4.8-10.8)
[2021-12-23 05:13] LABS: Anion Gap 9 mmol/L (10-20); BUN (Urea Nitrogen) 7 mg/dL (8.4-25.7); Calc. Creatinine Clearance 76 mL/min (70-130); Calcium 8.4 mg/dL (7.8-10.44); Carbon Dioxide 29 mmol/L (23-31); Chloride 103 mmol/L (98-107); Glucose 140 mg/dL (83-110); Potassium 3.6 mmol/L (3.5-5.1); Sodium 137 mmol/L (136-145)
[2021-12-23] MEDS: Sodium Chloride 0.9% 1,000 ML IV SCH (09:35)
[2021-12-23] MEDS: Midodrine HCl 5 MG TAB PO SCH ×3 (09:35→20:40)
[2021-12-23] MEDS: Pantoprazole 40 MG VIAL IVP SCH (09:35)
[2021-12-23] MEDS ORDERED: ceFAZolin 2 GM/Dextrose 50 ML IVPB ONE (10:22)
[2021-12-23] MEDS ORDERED: CEFAZOLIN 1 GM VIAL ONE (10:22)
[2021-12-23] MEDS ORDERED: Lidocaine 1% (PF) 30 ML VIAL ONE (10:23)
[2021-12-23] MEDS ORDERED: Vancomycin HCl 500 MG VIAL ONE (10:27)
[2021-12-23] MEDS: Tamsulosin HCl 0.4 MG CAP PO SCH (15:40)
[2021-12-23] MEDS: DULoxetine 60 MG CAP PO SCH (15:40)
[2021-12-23] MEDS: Donepezil HCl 10 MG TAB PO SCH (15:40)
[2021-12-23] MEDS: Fludrocortisone Acetate 0.1 MG TAB PO SCH (15:40)
[2021-12-23] MEDS: Multivitamin W/ Minerals 1 TAB PO SCH (15:41)
[2021-12-23] MEDS: Donepezil HCl 5 MG TAB PO SCH (15:41)
[2021-12-23] MEDS: Ferrous Sulfate 325 MG TAB PO SCH (15:41)
[2021-12-23] MEDS: cefTRIAXone\\ROCEPHIN 1 GM in Sodium Chloride 0.9% 100 ML IVPB SCH (15:44)
[2021-12-23] MEDS: Acetaminophen 325 MG TAB PO PRN (16:04)
[2021-12-23 17:44] LABS: Ferritin 113.2 ng/mL (22-322)
[2021-12-23] MEDS ORDERED: Amiodarone 200 MG TAB PO SCH (18:00)
[2021-12-23] MEDS: Atorvastatin Calcium 10 MG TAB PO SCH (20:39)
[2021-12-24] MEDS: Sodium Chloride 0.9% 1,000 ML IV SCH ×2 (00:32→14:18)
[2021-12-24 04:48] LABS: #Eosinphils 0.5 thou/uL (0.0-0.7); #Lymphocytes 1.7 thou/uL (1.20-3.40); #Monocytes 0.5 thou/uL (0.11-0.59); #Neutrophils 3.4 thou/uL (1.40-6.50); %Basophils 0.1 % (0.0-1.0); %Eosinophils 7.4 % (0.0-10.0); %Lymphocytes 27.9 % (21.0-51.0); %Monocytes 8.7 % (0.0-10.0); %Neutrophils 55.8 % (42.0-75.0); Mean Corpuscular HGB CONC 32.1 g/dL (32.0-36.0); Mean Corpuscular Hemoglobin 32.8 pg (27.0-31.0); Mean Platelet Volume 6.7 fL (7.4-10.4); Platelet Count 181 thou/uL (130-400); RBC Distribution Width 12.3 % (11.5-14.5); Red Blood Cell (RBC) Count 3.04 mill/uL (4.70-6.10); White Blood Cell (WBC) Count 6.1 thou/uL (4.8-10.8)
[2021-12-24 05:11] LABS: Anion Gap 11 mmol/L (10-20); BUN (Urea Nitrogen) 9 mg/dL (8.4-25.7); Calc. Creatinine Clearance 78 mL/min (70-130); Calcium 8.4 mg/dL (7.8-10.44); Carbon Dioxide 31 mmol/L (23-31); Chloride 102 mmol/L (98-107); Glucose 105 mg/dL (83-110); Potassium 3.6 mmol/L (3.5-5.1); Sodium 140 mmol/L (136-145)
[2021-12-24] MEDS ORDERED: Amlodipine 5 MG TAB PO SCH (09:00)
[2021-12-24] MEDS ORDERED: Cefdinir 300 MG CAP PO SCH (09:00)
[2021-12-24] MEDS: Donepezil HCl 10 MG TAB PO SCH (09:03)
[2021-12-24] MEDS: Donepezil HCl 5 MG TAB PO SCH (09:03)
[2021-12-24] MEDS: Tamsulosin HCl 0.4 MG CAP PO SCH (09:03)
[2021-12-24] MEDS: Fludrocortisone Acetate 0.1 MG TAB PO SCH (09:04)
[2021-12-24] MEDS: Multivitamin W/ Minerals 1 TAB PO SCH (09:04)
[2021-12-24] MEDS: Ferrous Sulfate 325 MG TAB PO SCH (09:04)
[2021-12-24] MEDS: DULoxetine 60 MG CAP PO SCH (09:04)
[2021-12-24] MEDS: Midodrine HCl 5 MG TAB PO SCH ×2 (09:05→14:18)
[2021-12-24] MEDS: Pantoprazole 40 MG VIAL IVP SCH (09:05)
[2021-12-24] MEDS ORDERED: Bisacodyl 5 MG TAB PO SCH (09:15)
[2021-12-24 11:30] VITALS: BP 147/75; TEMP 98.4
[2021-12-26 11:42] LABS: Kappa Lambda Light Chain Ratio 1.74 (0.26-1.65); Kappa Light Chains 21.8 mg/L (3.3-19.4); Lambda Light Chain 12.5 mg/L (5.7-26.3)
[2021-12-26 13:38] LABS: Albumin 2.9 g/dL (2.9-4.4); Alpha 1 0.2 g/dL (0.0-0.4); Alpha 2 0.7 g/dL (0.4-1.0); Beta 0.6 g/dL (0.7-1.3); Gamma 1.4 g/dL (0.4-1.8); Globulin, Total 2.9 g/dL (2.2-3.9); Protein Electrophoresis Intrp Note: (.)
== END 2021-12-24 15:56 | disposition home health service (06) | DRG 243 ==
LOC: 2NO 18:12
PROVIDERS: ADMIT Internal Medicine; ATTEND Internal Medicine
PROC: 0JH606Z Insertion of Pacemaker, Dual Chamber into Chest Subcutaneous Tissue and Fascia, Open Approach (ICD-10-PCS; principal; 2021-12-23)
PROC: 02H60JZ Insertion of Pacemaker Lead into Right Atrium, Open Approach (ICD-10-PCS; 2021-12-23)
PROC: 02HK0JZ Insertion of Pacemaker Lead into Right Ventricle, Open Approach (ICD-10-PCS; 2021-12-23)
DX: I95.1 Orthostatic hypotension (principal); J96.11 Chronic respiratory failure with hypoxia; N39.0 Urinary tract infection, site not specified; Z20.822 Contact with and (suspected) exposure to COVID-19; E11.9 Type 2 diabetes mellitus without complications; D50.9 Iron deficiency anemia, unspecified; F03.90 Unspecified dementia, unspecified severity, without behavioral disturbance, psychotic disturbance, mood disturbance, and anxiety; I48.91 Unspecified atrial fibrillation; G47.33 Obstructive sleep apnea (adult) (pediatric); Z96.653 Presence of artificial knee joint, bilateral; I10 Essential (primary) hypertension; C88.0 Waldenstrom macroglobulinemia; G93.89 Other specified disorders of brain; N40.1 Benign prostatic hyperplasia with lower urinary tract symptoms; R33.8 Other retention of urine; Z86.16 Personal history of COVID-19; Z79.899 Other long term (current) drug therapy
CPT/HCPCS: 33208; 36415; 36416; 70450; 71045; 80048; 80053; 81001; 82607; 82728; 82746; 83883; 84165; 85025; 87040; 87086; 93005; 93010; 93306; 95816; 95819; 95957; C1785; C1898; C9113; J0690; J0696; J2001; J3370; J3490; J7050; U0003; U0005

== ENCOUNTER 2022-01-21 11:11 | Inpatient (IN) | payer MEDICARE, BC ==
[2022-01-21 11:39] LABS: #Eosinphils 0.2 thou/uL (0.0-0.7); #Monocytes 0.3 thou/uL (0.11-0.59); #Neutrophils 3.3 thou/uL (1.40-6.50); %Basophils 0.2 % (0.0-1.0); %Eosinophils 3.3 % (0.0-10.0); %Lymphocytes 21.3 % (21.0-51.0); %Monocytes 6.3 % (0.0-10.0); %Neutrophils 68.8 % (42.0-75.0); Hemoglobin 10.5 g/dL (14.0-18.0); Mean Corpuscular HGB CONC 31.7 g/dL (32.0-36.0); Mean Corpuscular Hemoglobin 32.1 pg (27.0-31.0); Mean Platelet Volume 7.3 fL (7.4-10.4); Platelet Count 174 thou/uL (130-400); RBC Distribution Width 11.9 % (11.5-14.5); Red Blood Cell (RBC) Count 3.27 mill/uL (4.70-6.10); White Blood Cell (WBC) Count 4.9 thou/uL (4.8-10.8)
[2022-01-21 11:49] LABS: PTT 27.2 sec (22.9-36.1); Prothrombin Time 13.7 sec (12.0-14.7)
[2022-01-21] MEDS ORDERED: Cefepime 2 GM VIAL ONE (11:58)
[2022-01-21] MEDS ORDERED: Vancomycin 1.5 GRAM/300 ML BAG 1.5 GM in Premix Bag 1 BAG IVPB SCH (12:00)
[2022-01-21 12:02] LABS: ALT (SGPT) 18 U/L (8-55); AST (SGOT) 24 U/L (5-34); Albumin 3.2 g/dL (3.4-4.8); Alkaline Phosphatase 48 U/L (40-110); Anion Gap 13 mmol/L (10-20); BUN (Urea Nitrogen) 11 mg/dL (8.4-25.7); Bilirubin, Total 0.3 mg/dL (0.2-1.2); Calc. Creatinine Clearance 0 mL/min (70-130); Calcium 8.5 mg/dL (7.8-10.44); Carbon Dioxide 28 mmol/L (23-31); Chloride 103 mmol/L (98-107); Globulin 3.3 g/dL (2.4-3.5); Glucose 129 mg/dL (83-110); Magnesium 1.7 mg/dL (1.6-2.6); Potassium 4.5 mmol/L (3.5-5.1); Protein, Total 6.5 g/dL (5.8-8.1); Sodium 139 mmol/L (136-145)
[2022-01-21 12:24] LABS: CKMB 1.7 ng/mL (0-6.6)
[2022-01-21 12:33] LABS: Actual Bicarbonate (HCO3v) 28 mEq/L (22-28); Analyzer IN Cardio ER; Base Excess 2.8 mEq/L (-2.0 to +3.0); Calcium, Ionized (venous) 1.03 mmol/L (1.16-1.32); Chloride (VBG) 103 mmol/L (98-106); Hemoglobin (Hb) 11.7 g/dL (12.6-17.4); Potassium (VBG) 4.19 mmol/L (3.70-5.30); pH (venous) 7.41 (7.32-7.43)
[2022-01-21 12:35] LABS: Bilirubin Negative (Negative); Blood, Urine Trace (Negative); Clarity Turbid (Clear); Glucose, Urine (Dipstick) Normal (Negative); Ketone, Urine Trace mg/dL (Negative); Leukocyte 500 Leu/uL (Negative); Nitrite Negative (Negative); Protein, Urine (Dipstick) 30 mg/dL (Neg-Trace); Specific Gravity, Urine 1.019 (1.002-1.036); Squamous Epithelial 0-3 HPF (0-3); Urobilinogen Normal mg/dL (Less than 2); WBC/HPF 21-50 HPF (0-3)
[2022-01-21 12:52] LABS: Bacteria/HPF 2+ HPF (None Seen); Yeast-Budding Rare HPF (None Seen); Yeast-Hyphae 1+ HPF (None Seen)
[2022-01-21] MEDS ORDERED: Acetaminophen 325 MG TAB PO PRN (14:43)
[2022-01-21] MEDS ORDERED: Enoxaparin Sodium 40 MG/0.4 ML SYRINGE SC SCH (14:45)
[2022-01-21 14:51] LABS: Troponin I 0.058 ng/mL (< 0.028)
[2022-01-21] MEDS ORDERED: Enoxaparin Sodium 40 MG/0.4 ML SYRINGE ONE (15:56)
[2022-01-21 18:33] LABS: Troponin I 0.046 ng/mL (< 0.028)
[2022-01-21] MEDS: cefTRIAXone\\ROCEPHIN 1 GM in Sodium Chloride 0.9% 100 ML IVPB SCH (21:30)
[2022-01-21] MEDS: Atorvastatin Calcium 10 MG TAB PO SCH (21:30)
[2022-01-21] MEDS: Midodrine HCl 5 MG TAB PO SCH (21:31)
[2022-01-22 00:18] VITALS: BMI 23.6
[2022-01-22] MEDS ORDERED: Moisturizing Cream (Eucerin) 113 GM JAR TOP PRN (09:05)
[2022-01-22] MEDS ORDERED: GUAIFENESIN SF SOLN 200 MG/10 ML UDCUP PO PRN (09:05)
[2022-01-22] MEDS ORDERED: Ondansetron PF 4 MG/2 ML Vial IVP PRN (09:05)
[2022-01-22] MEDS ORDERED: Loperamide HCl 2 MG CAP PO PRN (09:05)
[2022-01-22] MEDS ORDERED: Senokot S 8.6-50 MG TAB PO PRN (09:05)
[2022-01-22] MEDS ORDERED: Sodium Chloride 0.65% Nasal 44 ML BOT EA NARE PRN (09:05)
[2022-01-22] MEDS ORDERED: Cepastat Lozenges 1 LOZ PO PRN (09:05)
[2022-01-22] MEDS ORDERED: Artificial Tear Sol 15 ML BOT EA EYE PRN (09:05)
[2022-01-22] MEDS ORDERED: Calcium Carbonate 500 MG ChewTAB PO PRN (09:05)
[2022-01-22] MEDS: Enoxaparin Sodium 40 MG/0.4 ML SYRINGE SC SCH (09:44)
[2022-01-22] MEDS: Donepezil HCl 10 MG TAB PO SCH (09:45)
[2022-01-22] MEDS: Multivitamin W/ Minerals 1 TAB PO SCH (09:45)
[2022-01-22] MEDS: Amiodarone 200 MG TAB PO SCH (09:45)
[2022-01-22] MEDS: Tamsulosin HCl 0.4 MG CAP PO SCH (09:45)
[2022-01-22] MEDS: DULoxetine 60 MG CAP PO SCH (09:45)
[2022-01-22] MEDS: Fludrocortisone Acetate 0.1 MG TAB PO SCH (09:46)
[2022-01-22] MEDS: Midodrine HCl 5 MG TAB PO SCH ×3 (09:47→20:06)
[2022-01-22] MEDS: 1/2 NS w/KCL 20 mEq 1,000 ML IV SCH ×2 (10:17→20:05)
[2022-01-22] MEDS: Atorvastatin Calcium 10 MG TAB PO SCH (20:05)
[2022-01-22] MEDS: cefTRIAXone\\ROCEPHIN 1 GM in Sodium Chloride 0.9% 100 ML IVPB SCH (20:06)
[2022-01-23] MEDS: 1/2 NS w/KCL 20 mEq 1,000 ML IV SCH ×2 (05:40→15:48)
[2022-01-23 09:03] LABS: Anion Gap 11 mmol/L (10-20); BUN (Urea Nitrogen) 9 mg/dL (8.4-25.7); Calc. Creatinine Clearance 78 mL/min (70-130); Carbon Dioxide 30 mmol/L (23-31); Chloride 101 mmol/L (98-107); Glucose 94 mg/dL (83-110); Magnesium 1.9 mg/dL (1.6-2.6); Potassium 4.1 mmol/L (3.5-5.1); Sodium 138 mmol/L (136-145)
[2022-01-23 09:05] LABS: #Eosinphils 0.2 thou/uL (0.0-0.7); #Lymphocytes 1.7 thou/uL (1.20-3.40); #Monocytes 0.5 thou/uL (0.11-0.59); #Neutrophils 2.3 thou/uL (1.40-6.50); %Basophils 0.3 % (0.0-1.0); %Eosinophils 4.3 % (0.0-10.0); %Lymphocytes 36.4 % (21.0-51.0); %Monocytes 10.9 % (0.0-10.0); %Neutrophils 48.1 % (42.0-75.0); Hemoglobin 11.2 g/dL (14.0-18.0); Mean Corpuscular HGB CONC 31.5 g/dL (32.0-36.0); Mean Corpuscular Hemoglobin 31.7 pg (27.0-31.0); Mean Platelet Volume 7.2 fL (7.4-10.4); Platelet Count 182 thou/uL (130-400); RBC Distribution Width 11.8 % (11.5-14.5); Red Blood Cell (RBC) Count 3.52 mill/uL (4.70-6.10); White Blood Cell (WBC) Count 4.7 thou/uL (4.8-10.8)
[2022-01-23] MEDS: Tamsulosin HCl 0.4 MG CAP PO SCH (09:42)
[2022-01-23] MEDS: Multivitamin W/ Minerals 1 TAB PO SCH (09:43)
[2022-01-23] MEDS: DULoxetine 60 MG CAP PO SCH (09:43)
[2022-01-23] MEDS: Amiodarone 200 MG TAB PO SCH (09:43)
[2022-01-23] MEDS: Donepezil HCl 10 MG TAB PO SCH (09:43)
[2022-01-23] MEDS: Fludrocortisone Acetate 0.1 MG TAB PO SCH (09:44)
[2022-01-23] MEDS: Enoxaparin Sodium 40 MG/0.4 ML SYRINGE SC SCH (09:44)
[2022-01-23] MEDS: Midodrine HCl 5 MG TAB PO SCH ×3 (09:44→20:21)
[2022-01-23] MEDS ORDERED: Ondansetron ODT 4 MG TAB PO PRN (14:38)
[2022-01-23] MEDS: Atorvastatin Calcium 10 MG TAB PO SCH (20:21)
[2022-01-23] MEDS: cefTRIAXone\\ROCEPHIN 1 GM in Sodium Chloride 0.9% 100 ML IVPB SCH (20:21)
[2022-01-24] MEDS: 1/2 NS w/KCL 20 mEq 1,000 ML IV SCH (01:35)
[2022-01-24 07:43] VITALS: TEMP 98.1
[2022-01-24] MEDS: Tamsulosin HCl 0.4 MG CAP PO SCH (09:27)
[2022-01-24] MEDS: Amiodarone 200 MG TAB PO SCH (09:27)
[2022-01-24] MEDS: Multivitamin W/ Minerals 1 TAB PO SCH (09:27)
[2022-01-24] MEDS: Fludrocortisone Acetate 0.1 MG TAB PO SCH (09:27)
[2022-01-24] MEDS: Midodrine HCl 5 MG TAB PO SCH (09:28)
[2022-01-24] MEDS: Donepezil HCl 10 MG TAB PO SCH (09:28)
[2022-01-24] MEDS: Enoxaparin Sodium 40 MG/0.4 ML SYRINGE SC SCH (09:29)
[2022-01-24] MEDS: DULoxetine 60 MG CAP PO SCH (09:29)
[2022-01-24 11:00] VITALS: BP 181/88
== END 2022-01-24 10:54 | disposition home health service (06) | DRG 698 ==
LOC: ERS 11:11 → ERHOLD 13:45 → 2SW 17:31 → OBSVTOIN 01-22 10:21
PROVIDERS: ADMIT Internal Medicine; ATTEND Internal Medicine
DX: T83.511A Infection and inflammatory reaction due to indwelling urethral catheter, initial encounter (principal); G93.41 Metabolic encephalopathy; N13.8 Other obstructive and reflux uropathy; F05 Delirium due to known physiological condition; N39.0 Urinary tract infection, site not specified; Z20.822 Contact with and (suspected) exposure to COVID-19; E11.9 Type 2 diabetes mellitus without complications; I48.91 Unspecified atrial fibrillation; N40.1 Benign prostatic hyperplasia with lower urinary tract symptoms; R33.8 Other retention of urine; I10 Essential (primary) hypertension; D47.2 Monoclonal gammopathy; Z96.653 Presence of artificial knee joint, bilateral; I95.1 Orthostatic hypotension; E86.9 Volume depletion, unspecified; Y84.6 Urinary catheterization as the cause of abnormal reaction of the patient, or of later complication, without mention of misadventure at the time of the procedure; F41.9 Anxiety disorder, unspecified; F32.A Depression, unspecified; F03.90 Unspecified dementia, unspecified severity, without behavioral disturbance, psychotic disturbance, mood disturbance, and anxiety; Z79.01 Long term (current) use of anticoagulants; Z86.73 Personal history of transient ischemic attack (TIA), and cerebral infarction without residual deficits; Z79.899 Other long term (current) drug therapy; Z79.84 Long term (current) use of oral hypoglycemic drugs; Z96.82 Presence of neurostimulator; Z98.890 Other specified postprocedural states
CPT/HCPCS: 36415; 36416; 70450; 71045; 80048; 81003; 81015; 82553; 82805; 83605; 83735; 84100; 84145; 84484; 85025; 85610; 85730; 86850; 86900; 86901; 87040; 87077; 87086; 87186; 93005; 94760; 96365; 96366; 96367; J0692; J0696; J1650; J3370; J3480; J3490; U0003; U0005

== ENCOUNTER 2022-02-11 12:45 | Outpatient (CLI) | payer MEDICARE, BC ==
[2022-02-11 14:07] LABS: Hemoglobin 11.5 g/dL (13.5-17.5); Mean Corpuscular HGB CONC 31.8 g/dL (32.0-36.0); Mean Corpuscular Hemoglobin 30.2 pg (27.0-33.0); Mean Platelet Volume 10.1 fl (7.4-10.4); Platelet Count 242 10x3/uL (150-450); RBC Distribution Width 13.2 % (11.5-14.5); Red Blood Cell (RBC) Count 3.81 10x6/uL (4.32-5.72); White Blood Cell (WBC) Count 6.7 10x3/uL (3.5-10.5)
[2022-02-11 14:19] LABS: Anion Gap 17 mmol/L (10-20); BUN (Urea Nitrogen) 19 mg/dL (8.4-25.7); Calc. Creatinine Clearance 0 mL/min (70-130); Calcium 9.8 mg/dL (7.8-10.44); Carbon Dioxide 28 mmol/L (23-31); Chloride 94 mmol/L (98-107); Glucose 177 mg/dL (83-110); Potassium 4.5 mmol/L (3.5-5.1); Sodium 134 mmol/L (136-145)
[2022-02-11 14:20] LABS: PTT 24.7 sec (22.0-33.0); Prothrombin Time 10.7 sec (9.5-12.1)
== END 2022-02-11 12:46 | disposition home or self-care (01) ==
LOC: LABBT 12:45
PROVIDERS: ATTEND Urology
DX: Z01.818 Encounter for other preprocedural examination (principal); E11.22 Type 2 diabetes mellitus with diabetic chronic kidney disease; N18.9 Chronic kidney disease, unspecified; N40.1 Benign prostatic hyperplasia with lower urinary tract symptoms; I25.10 Atherosclerotic heart disease of native coronary artery without angina pectoris; I48.0 Paroxysmal atrial fibrillation; N39.0 Urinary tract infection, site not specified; F32.5 Major depressive disorder, single episode, in full remission; G31.1 Senile degeneration of brain, not elsewhere classified; D47.2 Monoclonal gammopathy; R33.8 Other retention of urine; Z20.822 Contact with and (suspected) exposure to COVID-19
CPT/HCPCS: 80048; 85027; 85610; 85730; 93005; U0003; U0005; 87086; 93010

== ENCOUNTER 2022-02-14 07:22 | Day surgery (SDC) | payer MEDICARE, BC ==
[2022-02-13 10:11] VITALS: BMI 22.4
[2022-02-14] MEDS ORDERED: B & O ONE (09:06)
[2022-02-14] MEDS ORDERED: Levofloxacin 500 mg/D5W 100 ml Premix Bag ONE (09:17)
[2022-02-14] MEDS ORDERED: PROPOFOL 200 MG/20 ML VIAL ONE (09:25)
== END 2022-02-14 11:22 | disposition home or self-care (01) ==
LOC: SDC 07:22
PROVIDERS: ATTEND Urology
PROC: 0T7D8DZ Dilation of Urethra with Intraluminal Device, Via Natural or Artificial Opening Endoscopic (ICD-10-PCS; principal; 2022-02-14)
DX: N40.1 Benign prostatic hyperplasia with lower urinary tract symptoms (principal); N13.8 Other obstructive and reflux uropathy; R33.8 Other retention of urine; I48.91 Unspecified atrial fibrillation; I10 Essential (primary) hypertension; E11.9 Type 2 diabetes mellitus without complications; K21.9 Gastro-esophageal reflux disease without esophagitis; Z79.84 Long term (current) use of oral hypoglycemic drugs; Z79.899 Other long term (current) drug therapy
CPT/HCPCS: C9740; L8699; J1956; J2704

== ENCOUNTER 2022-03-27 16:45 | Outpatient (CLI) | payer MEDICARE, BC | END 2022-03-27 16:46 | disposition home or self-care (01) | LOC: RAD 16:45 | PROVIDERS: ATTEND Family Medicine Sports Medicine | DX: M54.9 Dorsalgia, unspecified (principal) | CPT/HCPCS: 72072; 72100 ==

== ENCOUNTER 2022-04-22 12:37 | Outpatient (CLI) | payer MEDICARE, BC | END 2022-04-22 12:38 | disposition home or self-care (01) | LOC: LABBT 12:37 | PROVIDERS: ATTEND Urology | DX: Z20.822 Contact with and (suspected) exposure to COVID-19 (principal) | CPT/HCPCS: 87811 ==

== ENCOUNTER 2022-04-25 09:18 | Day surgery (SDC) | payer MEDICARE, BC ==
[2022-04-22 12:59] VITALS: BMI 22.4
[2022-04-25] MEDS ORDERED: Fentanyl 100 MCG/2 ML VIAL ONE (09:27)
[2022-04-25 09:29] LABS: #Eosinphils 0.2 thou/uL (0.0-0.7); #Lymphocytes 1.2 thou/uL (1.20-3.40); #Monocytes 0.7 thou/uL (0.11-0.59); #Neutrophils 7.9 thou/uL (1.40-6.50); %Eosinophils 1.7 % (0.0-10.0); %Lymphocytes 12.1 % (21.0-51.0); %Monocytes 6.6 % (0.0-10.0); %Neutrophils 79.6 % (42.0-75.0); Hemoglobin 9.4 g/dL (14.0-18.0); Mean Corpuscular Hemoglobin 31.8 pg (27.0-31.0); Mean Corpuscular Volume 99.3 fL (78.0-98.0); Mean Platelet Volume 6.8 fL (7.4-10.4); Platelet Count 241 thou/uL (130-400); RBC Distribution Width 14.5 % (11.5-14.5); Red Blood Cell (RBC) Count 2.96 mill/uL (4.70-6.10)
[2022-04-25 09:40] LABS: PTT 23.1 sec (22.9-36.1)
[2022-04-25 10:14] VITALS: BP 119/76; TEMP 98
[2022-04-25] MEDS ORDERED: Lidocaine 1% MPF 2 ML VIAL ONE (10:28)
== END 2022-04-25 13:15 | disposition home or self-care (01) ==
LOC: SPEC 09:18
PROVIDERS: ATTEND Urology
PROC: 0T9B30Z Drainage of Bladder with Drainage Device, Percutaneous Approach (ICD-10-PCS; principal; 2022-04-25)
DX: N20.1 Calculus of ureter (principal); R33.8 Other retention of urine; I10 Essential (primary) hypertension; E11.40 Type 2 diabetes mellitus with diabetic neuropathy, unspecified; M48.02 Spinal stenosis, cervical region; I48.91 Unspecified atrial fibrillation; K21.9 Gastro-esophageal reflux disease without esophagitis; Z79.84 Long term (current) use of oral hypoglycemic drugs; Z79.899 Other long term (current) drug therapy; Z95.0 Presence of cardiac pacemaker
CPT/HCPCS: 51102; 77002; 85025; 85610; 85730; C2627; 36415; J1956; J3010